=== PATIENT | male | born 1945 | race Caucasian/White ===

== ENCOUNTER 2017-11-05 00:05 | Inpatient (IN) | payer MEDICARE ==
[~2017-11-05] VITALS: Ht 167.6 cm; Wt 49.0 kg
[2017-11-05 00:32] LABS: BASOPHILS ABSOLUTE AUTO 0.02 K/mm3 (0.00-0.23); BASOPHILS PERCENT AUTO 0 % (0-2); EOSINOPHILS ABSOLUTE AUTO 0.01 K/mm3 (0.00-0.68); EOSINOPHILS PERCENT AUTO 0 % (0-6); Hematocrit 38.4 % (37.0-53.0); Hemoglobin 12.7 g/dL (13.5-17.5); IMMATURE GRAN ABSOLUTE AUTO 0.06 K/mm3 (0.00-0.10); IMMATURE GRAN PERCENT AUTO 1 % (0-1); LYMPHOCYTES PERCENT AUTO 9 % (21-46); MONOCYTES ABSOLUTE AUTO 2.36 K/mm3 (0.16-1.47); MONOCYTES PERCENT AUTO 26 % (4-13); Mean Corpuscular HGB Conc 33.1 g/dL (31.5-36.5); Mean Corpuscular Volume 94 fL (80-100); Mean Platelet Volume 10.5 fL (9.1-12.4); NEUTROPHILS ABSOLUTE AUTO 5.89 K/mm3 (1.96-9.15); NEUTROPHILS PERCENT AUTO 64 % (41-73); Platelet Count 298 K/mm3 (150-400); RDW Coefficient Variation 14.9 % (11.7-14.2); White Blood Cell Count 9.14 K/mm3 (4.00-11.30)
[2017-11-05 00:42] LABS: PCO2 Arterial 63.3 mmHg (35-45); PO2 Arterial 177 mmHg (80-100); pH Blood Arterial 7.27 (7.35-7.45)
[2017-11-05 00:45] LABS: Alanine Aminotransfer (ALT/SGP 15 U/L (12-78); Albumin, Blood 2.9 g/dL (3.4-5.0); Albumin/Globulin Ratio 0.6 (0.8-1.8); Alk Phos 91 U/L (50-136); Anion Gap 9 mmol/L (6-16); Aspartate Aminotrans (AST/SGOT 23 U/L (12-37); Bilirubin, Total 0.4 mg/dL (0.1-1.0); Blood Urea Nitrogen 22 mg/dL (8-24); CO2, Blood 28 mmol/L (21-32); Calcium, Blood 8.8 mg/dL (8.5-10.1); Chloride, Blood 106 mmol/L (98-108); Creatinine, Blood 1.16 mg/dL (0.60-1.20); Globulin, Blood 4.6 g/dL (2.2-4.0); Glomerular Filtration Rate >60 (60-); Glucose, Blood 105 mg/dL (70-99); Potassium, Blood 3.8 mmol/L (3.5-5.5); Sodium, Blood 143 mmol/L (136-145); Total Protein, Blood 7.5 g/dL (6.4-8.2); Troponin I <0.015 ng/mL (0.000-0.040)
[2017-11-05] MEDS ORDERED: LOSARTAN POTAS100 MG PO (00:49)
[2017-11-05] MEDS ORDERED: Omeprazole20 M1 (00:50)
[2017-11-05] MEDS ORDERED: PRED10 (00:50)
[2017-11-05] MEDS ORDERED: DOCU100 PO (00:50)
[2017-11-05] MEDS ORDERED: PIRO20 PO (00:51)
[2017-11-05] MEDS ORDERED: ESCI20 PO (00:51)
[2017-11-05] MEDS ORDERED: TRAZ50 PO ×2 (00:52)
[2017-11-05] MEDS ORDERED: TIOT18 INH (00:52)
[2017-11-05] MEDS ORDERED: ALPR1 PO (00:52)
[2017-11-05] MEDS ORDERED: BUDE6HFA INH (00:53)
[2017-11-05 04:21] LABS: Hematocrit 35.4 % (37.0-53.0); Hemoglobin 11.5 g/dL (13.5-17.5); Mean Corpuscular HGB 30.7 pg (26.0-34.0); Mean Corpuscular HGB Conc 32.5 g/dL (31.5-36.5); Mean Corpuscular Volume 95 fL (80-100); Mean Platelet Volume 10.8 fL (9.1-12.4); Platelet Count 274 K/mm3 (150-400); RDW Coefficient Variation 15.1 % (11.7-14.2); RDW Standard Deviation 51.8 fL (35.1-46.3); Red Blood Cell Count 3.74 M/mm3 (4.30-5.90); White Blood Cell Count 6.08 K/mm3 (4.00-11.30)
[2017-11-05 04:49] LABS: Albumin, Blood 2.7 g/dL (3.4-5.0); Anion Gap 8 mmol/L (6-16); Blood Urea Nitrogen 22 mg/dL (8-24); CO2, Blood 27 mmol/L (21-32); Chloride, Blood 109 mmol/L (98-108); Creatinine, Blood 1.05 mg/dL (0.60-1.20); Glomerular Filtration Rate >60 (60-); Glucose, Blood 162 mg/dL (70-99); Phosphorus, Blood 3.9 mg/dL (2.5-4.9); Potassium, Blood 3.7 mmol/L (3.5-5.5); Sodium, Blood 144 mmol/L (136-145)
[2017-11-05 04:56] LABS: BAND PERCENT MAN 20 % (0-8); BASOPHILS ABSOLUTE MAN 0.06 K/mm3 (0.00-0.23); BASOPHILS PERCENT MAN 1 % (0-2); EOSINOPHILS PERCENT MAN 0 % (0-6); LYMPHOCYTES PERCENT MAN 5 % (21-46); METAMYELOCYTE ABSOLUTE MAN 0.12 K/mm3 (0.00-0.00); METAMYELOCYTE PERCENT MAN 2 % (0-0); MONOCYTES ABSOLUTE MAN 0.54 K/mm3 (0.16-1.47); MONOCYTES PERCENT MAN 9 % (4-13); NEUTROPHILS ABSOLUTE MAN 5.04 K/mm3 (1.96-9.15); SEG NEUTROPHILS PERCENT MAN 63 % (41-73); TOTAL CELLS COUNTED 100
[2017-11-05 05:19] LABS: Influenza A Negative (NEGATIVE); Influenza B Negative (NEGATIVE)
[2017-11-05 07:46] LABS: PCO2 Arterial 57.3 mmHg (35-45); PO2 Arterial 63.4 mmHg (80-100); pH Blood Arterial 7.28 (7.35-7.45)
[2017-11-06 12:45] LABS: PCO2 Arterial 59.7 mmHg (35-45); PO2 Arterial 73.6 mmHg (80-100); pH Blood Arterial 7.31 (7.35-7.45)
[2017-11-06 13:48] LABS: Hematocrit 35.4 % (37.0-53.0); Hemoglobin 11.5 g/dL (13.5-17.5); Mean Corpuscular HGB 30.7 pg (26.0-34.0); Mean Corpuscular HGB Conc 32.5 g/dL (31.5-36.5); Mean Corpuscular Volume 95 fL (80-100); Mean Platelet Volume 11.1 fL (9.1-12.4); Platelet Count 339 K/mm3 (150-400); RDW Coefficient Variation 15.4 % (11.7-14.2); RDW Standard Deviation 53.5 fL (35.1-46.3); Red Blood Cell Count 3.74 M/mm3 (4.30-5.90); White Blood Cell Count 9.03 K/mm3 (4.00-11.30)
[2017-11-06 14:08] LABS: Anion Gap 6 mmol/L (6-16); Blood Urea Nitrogen 31 mg/dL (8-24); CO2, Blood 29 mmol/L (21-32); Calcium, Blood 8.8 mg/dL (8.5-10.1); Chloride, Blood 107 mmol/L (98-108); Creatinine, Blood 0.97 mg/dL (0.60-1.20); Glucose, Blood 170 mg/dL (70-99); Potassium, Blood 3.7 mmol/L (3.5-5.5); Sodium, Blood 142 mmol/L (136-145)
[2017-11-06 14:10] LABS: Glomerular Filtration Rate > 60 (60-)
[2017-11-07 04:37] LABS: Hematocrit 36.8 % (37.0-53.0); Hemoglobin 12.1 g/dL (13.5-17.5); Mean Corpuscular HGB 31.3 pg (26.0-34.0); Mean Corpuscular HGB Conc 32.9 g/dL (31.5-36.5); Mean Corpuscular Volume 95 fL (80-100); Mean Platelet Volume 10.6 fL (9.1-12.4); NRBC ABSOLUTE 0.03 K/mm3 (0.00-0.02); NRBC Auto 0.2 /100 WBC (0.0-0.2); Platelet Count 350 K/mm3 (150-400); RDW Coefficient Variation 15.8 % (11.7-14.2); RDW Standard Deviation 55.3 fL (35.1-46.3); Red Blood Cell Count 3.86 M/mm3 (4.30-5.90); White Blood Cell Count 13.31 K/mm3 (4.00-11.30)
[2017-11-07 05:06] LABS: Anion Gap 8 mmol/L (6-16); Blood Urea Nitrogen 34 mg/dL (8-24); Bun/Creatinine Ratio 31.8 (12.0-20.0); CO2, Blood 29 mmol/L (21-32); Calcium, Blood 9.2 mg/dL (8.5-10.1); Chloride, Blood 105 mmol/L (98-108); Creatinine, Blood 1.07 mg/dL (0.60-1.20); Glomerular Filtration Rate >60 (60-); Glucose, Blood 142 mg/dL (70-99); Sodium, Blood 142 mmol/L (136-145)
[2017-11-09 05:13] LABS: Hematocrit 35.5 % (37.0-53.0); Hemoglobin 11.5 g/dL (13.5-17.5); Mean Corpuscular HGB 30.9 pg (26.0-34.0); Mean Corpuscular HGB Conc 32.4 g/dL (31.5-36.5); Mean Corpuscular Volume 95 fL (80-100); Mean Platelet Volume 10.6 fL (9.1-12.4); Platelet Count 348 K/mm3 (150-400); RDW Coefficient Variation 15.5 % (11.7-14.2); RDW Standard Deviation 54.5 fL (35.1-46.3); Red Blood Cell Count 3.72 M/mm3 (4.30-5.90)
[2017-11-09 05:31] LABS: Anion Gap 3 mmol/L (6-16); Blood Urea Nitrogen 25 mg/dL (8-24); Bun/Creatinine Ratio 27.7 (12.0-20.0); CO2, Blood 38 mmol/L (21-32); Calcium, Blood 8.3 mg/dL (8.5-10.1); Chloride, Blood 100 mmol/L (98-108); Glomerular Filtration Rate >60 (60-); Glucose, Blood 139 mg/dL (70-99); Potassium, Blood 4.4 mmol/L (3.5-5.5); Sodium, Blood 141 mmol/L (136-145)
[2017-11-11] MEDS ORDERED: LOSA50 PO (10:23)
[2017-11-11] MEDS ORDERED: PRED20 PO (10:24)
== END 2017-11-11 15:17 | disposition home or self-care (01) | DRG 189 ==
LOC: ER 00:05 → PCU 01:26 → MEDS 11-07 22:36 → ENPENDDIS 11-11 09:33 → MEDS 11-11 15:17
PROVIDERS: Emergency Medicine; Family Medicine; Internal Medicine; Internal Medicine Pulmonary Disease
PROC: 5A09357 Assistance with Respiratory Ventilation, Less than 24 Consecutive Hours, Continuous Positive Airway Pressure (ICD-10-PCS; principal; 2017-11-04)
DX: J96.21 Acute and chronic respiratory failure with hypoxia (principal); E44.0 Moderate protein-calorie malnutrition; Z99.81 Dependence on supplemental oxygen; J44.1 Chronic obstructive pulmonary disease with (acute) exacerbation; Z68.1 Body mass index [BMI] 19.9 or less, adult; J96.22 Acute and chronic respiratory failure with hypercapnia; I10 Essential (primary) hypertension; F32.9 Major depressive disorder, single episode, unspecified; K21.9 Gastro-esophageal reflux disease without esophagitis; M19.90 Unspecified osteoarthritis, unspecified site; G47.9 Sleep disorder, unspecified; Z74.09 Other reduced mobility; F17.210 Nicotine dependence, cigarettes, uncomplicated; Z71.6 Tobacco abuse counseling; Z79.899 Other long term (current) drug therapy
CPT/HCPCS: 36415; 36600; 71010; 80048; 80053; 80069; 82803; 83605; 83690; 84484; 85025; 85027; 87040; 87070; 87205; 87804; 93005; 93010; 94640; 94644; 94660; 94760; 94762; 96360; 97110; 97161; 97166; 97530; 99285; G8978; G8979; G8987; G8988; G8989; J1650; J1956; J2920; J2930; J7030; Q2038

== ENCOUNTER 2021-05-10 15:09 | Inpatient (IN) | payer OTHER, MEDICARE ==
[~2021-05-10] VITALS: Ht 170.2 cm; Wt 72.3 kg
[~2021-05-10 15:09] MED LIST: ALPR1 PO; DOCU100 PO; ESCI20 PT; LOSA50 PT; LOSARTAN POTAS100 MG PO; Omeprazole20 M1; PIRO20 PO; PRED10; Prednisone10 MG PO; SYMBICORT 160-4.6 GM INH; TIOT18 INH; TRAZ50 PO
[2021-05-10 15:35] LABS: BASOPHILS ABSOLUTE AUTO 0.08 K/mm3 (0.00-0.23); BASOPHILS PERCENT AUTO 0 % (0-2); EOSINOPHILS ABSOLUTE AUTO 0.09 K/mm3 (0.00-0.68); EOSINOPHILS PERCENT AUTO 0 % (0-6); Hematocrit 37.6 % (37.0-53.0); Hemoglobin 11.7 g/dL (13.5-17.5); IMMATURE GRAN ABSOLUTE AUTO 0.12 K/mm3 (0.00-0.10); IMMATURE GRAN PERCENT AUTO 1 % (0-1); LYMPHOCYTES ABSOLUTE AUTO 0.91 K/mm3 (0.84-5.20); LYMPHOCYTES PERCENT AUTO 4 % (21-46); MONOCYTES ABSOLUTE AUTO 2.46 K/mm3 (0.16-1.47); MONOCYTES PERCENT AUTO 11 % (4-13); Mean Corpuscular HGB 31.1 pg (26.0-34.0); Mean Corpuscular HGB Conc 31.1 g/dL (31.5-36.5); Mean Corpuscular Volume 100 fL (80-100); Mean Platelet Volume 10.3 fL (9.1-12.4); NEUTROPHILS ABSOLUTE AUTO 18.64 K/mm3 (1.96-9.15); NEUTROPHILS PERCENT AUTO 84 % (41-73); Platelet Count 259 K/mm3 (150-400); RDW Coefficient Variation 15.2 % (11.7-14.2); RDW Standard Deviation 55.7 fL (35.1-46.3); Red Blood Cell Count 3.76 M/mm3 (4.30-5.90)
[2021-05-10] MEDS ORDERED: AMLO5 PT (15:50)
[2021-05-10] MEDS ORDERED: BUSP5 PT (15:51)
[2021-05-10] MEDS ORDERED: ALPR.25 PT (15:52)
[2021-05-10 15:56] LABS: PCO2 Arterial 57.3 mmHg (35-45); PO2 Arterial 195 mmHg (80-100); pH Blood Arterial 7.34 (7.35-7.45)
[2021-05-10 16:00] LABS: Alanine Aminotransfer (ALT/SGP 38 U/L (12-78); Albumin/Globulin Ratio 1.1 (0.8-1.8); Alk Phos 70 U/L (50-136); Anion Gap 3 mmol/L (6-16); Aspartate Aminotrans (AST/SGOT 31 U/L (12-37); Bilirubin, Total 0.3 mg/dL (0.1-1.0); Blood Urea Nitrogen 35 mg/dL (8-24); Bun/Creatinine Ratio 30.7 (12.0-20.0); CO2, Blood 34 mmol/L (21-32); Calcium, Blood 8.9 mg/dL (8.5-10.1); Chloride, Blood 103 mmol/L (98-108); Creatinine, Blood 1.14 mg/dL (0.60-1.20); Globulin, Blood 3.5 g/dL (2.2-4.0); Glomerular Filtration Rate >60 (60-); Glucose, Blood 120 mg/dL (70-99); Potassium, Blood 4.3 mmol/L (3.5-5.5); Sodium, Blood 140 mmol/L (136-145); Total Protein, Blood 7.5 g/dL (6.4-8.2)
[2021-05-10 16:05] LABS: Troponin I 0.055 ng/mL (0.000-0.040)
[2021-05-10 16:18] LABS: Creatine Kinase MB 10.3 ng/mL (0.0-3.6); Creatine Kinase MB Index 2.4 (0.0-4.0)
[2021-05-10] MEDS ORDERED: AZIT250 PO (16:58)
[2021-05-10] MEDS ORDERED: FERSU300 PT (16:59)
[2021-05-10] MEDS ORDERED: VITAMIN D31000 UNI1 PT (16:59)
[2021-05-10] MEDS ORDERED: ASCO500 PT (17:00)
[2021-05-10] MEDS ORDERED: DAILY-VITE1 EAC1 PT (17:00)
[2021-05-10 17:07] LABS: SARS-Cov-2 (COVID-19) PCR, MMC NEGATIVE (NEGATIVE)
[2021-05-10 17:50] LABS: Source, Urine Catheter
[2021-05-10 17:54] LABS: Bilirubin, Urine Neg (Neg); Blood, Urine 2+ (Neg); Color, Urine Yellow (P-Yellow); Glucose Qualitative, Urine Neg (Neg); Ketones, Urine 1+ (Neg); Leukocyte Esterase, Urine Neg (Neg); Nitrite, Urine Neg (Neg); Protein, Urine 2+ (Neg); Specific Gravity, Urine 1.025 (1.003-1.022); Urobilinogen, Urine NORM (Normal)
[2021-05-10 18:03] LABS: Appearance, Urine Hazy (Clear); White Blood Cells, Urine Rare /hpf (0-5)
[2021-05-10 18:04] LABS: Amorphous Light (0-Heavy); Bacteria Few /hpf; Squamous Epithelial Cells Not Seen /hpf (Few)
--- NOTE | 2021-05-10 20:30 | NUR ---
ADMIT RECEIVED FROM ER VIA GURNEY. PT IS INTUBATED- ETT 8.0, 26CM AT TEETH, AC 14, TV 400, PEEP 5, FIO2 35%. SEDATED WITH PROPOFOL AT 35MCG/KG/MIN. PT WITHDRAWS EXTREMITIES TO NOXIOUS STIMULI. NOT FOLLOWING COMMANDS. BILATERAL SOFT WRIST RETRAINTS IN PLACE TO PREVENT SELF-EXTUBATION. DR. LOERA AT BEDSIDE TO MAKE VENTILATOR CHANGES. MONITOR SHOWS SR WITH BBB, RATE 90s. OG CLAMPED. LANZA PATENT- DRAINING SMALL AMOUNTS OF YELLOW URINE. FACIAL LOVETT AND SWELLING NOTED. SEE ADMIT ASSESSMENT FOR FULL ASSESSMENT.
[2021-05-10 21:42] LABS: PCO2 Arterial 58.3 mmHg (35-45); PO2 Arterial 84.5 mmHg (80-100); pH Blood Arterial 7.29 (7.35-7.45)
--- NOTE | 2021-05-10 21:55 | NUR ---
CALL TO MD DR. LOERA NOTIFIED OF CRITICAL pH, DECREASED URINE OUTPUT, AND HYPOTENSION. NEW ORDERS RECEIVED FOR A 1L LR BOLUS NOW.
[2021-05-10 23:34] LABS: Troponin I 0.043 ng/mL (0.000-0.040)
[2021-05-10 23:48] LABS: Creatine Kinase MB 6.5 ng/mL (0.0-3.6); Creatine Kinase MB Index 1.4 (0.0-4.0)
--- NOTE | 2021-05-11 06:03 | NUR ---
SHIFT SUMMARY NO ACUTE CHANGES DURING SHIFT. REMAINS INTUBATED- AC/VC+ RATE 14, TV 400, PEEP 15, FIO2 NOW 30%. SEDATED WITH PROPOFOL AT 25MCG/KG/MIN AND VERSED GTT AT 3MG/HR. ALSO MEDICATED WITH ATIVAN 2MG IV X 2 DOSES FOR SEDATION ADJUNCT AND FENTANYL 50MCG IV X 2 DOSES FOR PAIN. NO NEURO CHANGES. NSR WITH BBB. HYPOTENSIVE AT TIMES, BUT MAP MOSTLY >65. TMAX 101.8F. OG TO LIS WITH SMALL AMOUNT BILE DRAINAGE. LANZA PATENT, DRAINING YELLOW URINE WITH SEDIMENT NOTED. NS INFUSING AT 75CC/HR PER ORDER. PICTURES TAKEN OF FACIAL LOVETT. WILL REPORT TO ONCOMING RN WHEN AVAILABLE.
[2021-05-11 07:20] LABS: Hematocrit 30.6 % (37.0-53.0); Hemoglobin 9.5 g/dL (13.5-17.5); Mean Corpuscular HGB 31.4 pg (26.0-34.0); Mean Corpuscular Volume 101 fL (80-100); Mean Platelet Volume 10.6 fL (9.1-12.4); Platelet Count 188 K/mm3 (150-400); RDW Coefficient Variation 15.3 % (11.7-14.2); Red Blood Cell Count 3.03 M/mm3 (4.30-5.90); White Blood Cell Count 19.01 K/mm3 (4.00-11.30)
[2021-05-11 07:52] LABS: Alanine Aminotransfer (ALT/SGP 31 U/L (12-78); Albumin, Blood 2.8 g/dL (3.4-5.0); Albumin/Globulin Ratio 0.8 (0.8-1.8); Alk Phos 50 U/L (50-136); Anion Gap 6 mmol/L (6-16); Aspartate Aminotrans (AST/SGOT 48 U/L (12-37); Bilirubin, Total 0.2 mg/dL (0.1-1.0); Blood Urea Nitrogen 34 mg/dL (8-24); Bun/Creatinine Ratio 27.6 (12.0-20.0); CO2, Blood 26 mmol/L (21-32); Calcium, Blood 7.5 mg/dL (8.5-10.1); Chloride, Blood 108 mmol/L (98-108); Creatinine, Blood 1.23 mg/dL (0.60-1.20); Globulin, Blood 3.3 g/dL (2.2-4.0); Glomerular Filtration Rate >60 (60-); Glucose, Blood 186 mg/dL (70-99); Potassium, Blood 4.3 mmol/L (3.5-5.5); Sodium, Blood 140 mmol/L (136-145); Total Protein, Blood 6.1 g/dL (6.4-8.2); Troponin I 0.037 ng/mL (0.000-0.040)
[2021-05-11 07:54] LABS: CPK Creatine Kinase 1410 U/L (39-308)
[2021-05-11 08:07] LABS: Creatine Kinase MB 11.8 ng/mL (0.0-3.6); Creatine Kinase MB Index 0.8 (0.0-4.0)
[2021-05-11 08:45] LABS: BAND PERCENT MAN 10 % (0-8); BASOPHILS PERCENT MAN 0 % (0-2); EOSINOPHILS PERCENT MAN 0 % (0-6); LYMPHOCYTES ABSOLUTE MAN 0.19 K/mm3 (0.84-5.20); LYMPHOCYTES PERCENT MAN 1 % (21-46); MONOCYTES ABSOLUTE MAN 0.38 K/mm3 (0.16-1.47); MONOCYTES PERCENT MAN 2 % (4-13); NEUTROPHILS ABSOLUTE MAN 18.43 K/mm3 (1.96-9.15); SEG NEUTROPHILS PERCENT MAN 87 % (41-73); TOTAL CELLS COUNTED 100
--- NOTE | 2021-05-11 09:46 | NUR ---
echocardiogram completed
--- NOTE | 2021-05-11 09:56 | NUR ---
PT INTUBATED AND SEDATED WITH PROPOFOL. VERSED WAS TURNED OFF PER DR. LOERA. PT HAS LOVETT TO CHEEKS AND NOSE. EYE'S ARE SWOLLEN SHUT AND LIPS ARE SWOLLEN. PT RESPONDS TO PAIN BY WITHDRAWING. UNABLE TO ASSESS PUPILS DUE TO EYE SWELLING. HYPOTENSIVE THIS AM THEREFORE HELD AM BP MEDS.
--- NOTE | 2021-05-11 15:53 | NUR ---
INITIAL PAL CARE VISIT - [place], Amy Kim is pt's MPOA [phone]. Pt lives with Amy, her and pt's granddaughter, Anahi. Anahi was at bedside and provided some information and hx and then I spoke with Amy at length by phone. Pt has good family support and help in the home with meals, medical care and personal needs. He is seen by [facility] home based Primary Care and Jami Benito is his PCP. Pt's home nurse is Perla. Ph # for that unit, per court is [phone]. [facility] is active in pt's care and recently helped him complete an updated Advanced Directive. I have faxed the [facility] Medical records dep to request copy of updated AD. We do not have an AD on file in EMR. Amy is pt's surrogate medical decision maker. Amy and Anahi tell me that pt had quit smoking around 2015 when his . The family went camping near the [facility] [employer] to visit their son and received a call from the pt a day AFTER the incident that resulted in thornton to face from smoking with his O2 on. He would not agree to go to the ER. Court called a nurse/friend, who evaluated and informed Amy that evaluation and tx absolutely necessary. Court called 911 from [place]. Pt is currently ventilated and sedated. He has underlying, O2 dependent COPD. I spoke to RN and reviewed EMR, update also obtained from IDT meeting this am. All updates provided to court, who was very appreciative of the call. She states Anahi is his "best kevin" in the home and Anahi made clear that she wanted to be at her granddad's side when possible. Amy will be back home tomorrow. We discussed advanced care planning and pt's wishes. He has indicated he is ok with CPR and intubation at this time but would not want [facility] life support if improvement and return to PLOF not possible. Court understands that pt is being tx for his COPD exacerbation and airway inflammation/swelling and facial wounds. I informed that more would be known about his condition and ongoing plan of care in next 1-2. Pal Care to remain available. in next 24-48 hours.
--- NOTE | 2021-05-11 18:39 | NUR ---
SUMMARY PT INTUBATED AND SEDATED WITH PROPOFOL. PT HAS BEEN SEDATED WELL WITH PROPOFOL AND FENTANYL. THIS EVENING PT GOT VERY ANXIOUS AND MOVING ALL OVER BED. GAVE A DOSE OF ATIVAN AND PT SETTLED BACK DOWN. FACIAL LOVETT MOIST. PT IS HAVING MOD AMT OF THICK DRAINAGE FROM NOSE. STARTED ON TUBE FEED TODAY AND TOLERATING WELL. NO OTHER CHANGES.
--- NOTE | 2021-05-11 19:00 | NUR ---
ASSUMED CARE ASSUMED CARE OF PATIENT. REMAINS INTUBATED- AC/VC+ RATE 14, TV 450, PEEP 5, FIO2 30%. ETT 8.0, 26CM AT LOWER LIP. TUBE IS SUPPOSED TO BE 26CM AT GUM- RT IS AWARE AND IS PLANNING ON RETAPING THE TUBE. SEDATED WITH PROPOFOL AT 25MCG/KG/MIN. PT WITHDRAWS FROM NOXIOUS STIMULI. NOT FOLLOWING ANY COMMANDS. OCCASIONALLY KICKS/SHAKES LEGS. BILATERAL SOFT WRIST RESTRAINTS IN PLACE TO PREVENT SELF-EXTUBATION. MONITOR SHOWS NSR WITH BBB, RATE 90s. BP STABLE. OG WITH PIVOT 1.5 AT 20CC/HR (GOAL IS 35CC/HR). LANZA PATENT AND DRAINING SMALL AMOUNT OF HAZY YELLOW URINE. FACIAL LOVETT NOTED. SEE SHIFT ASSESSMENT FOR FULL ASSESSMENT.
--- NOTE | 2021-05-11 20:40 | NUR ---
CALL TO MD DR. LOERA NOTIFIED OF DECREASED URINE OUTPUT- NEW ORDER RECEIVED TO START LR AT 75CC/HR.
[2021-05-12 03:43] LABS: BASOPHILS ABSOLUTE AUTO 0.01 K/mm3 (0.00-0.23); BASOPHILS PERCENT AUTO 0 % (0-2); EOSINOPHILS PERCENT AUTO 0 % (0-6); Hematocrit 28.5 % (37.0-53.0); Hemoglobin 9.2 g/dL (13.5-17.5); IMMATURE GRAN ABSOLUTE AUTO 0.09 K/mm3 (0.00-0.10); IMMATURE GRAN PERCENT AUTO 1 % (0-1); LYMPHOCYTES ABSOLUTE AUTO 0.28 K/mm3 (0.84-5.20); LYMPHOCYTES PERCENT AUTO 2 % (21-46); MONOCYTES ABSOLUTE AUTO 0.69 K/mm3 (0.16-1.47); MONOCYTES PERCENT AUTO 4 % (4-13); Mean Corpuscular HGB 31.4 pg (26.0-34.0); Mean Corpuscular HGB Conc 32.3 g/dL (31.5-36.5); Mean Corpuscular Volume 97 fL (80-100); Mean Platelet Volume 10.6 fL (9.1-12.4); NEUTROPHILS ABSOLUTE AUTO 15.23 K/mm3 (1.96-9.15); NEUTROPHILS PERCENT AUTO 93 % (41-73); Platelet Count 177 K/mm3 (150-400); RDW Coefficient Variation 15.5 % (11.7-14.2); RDW Standard Deviation 55.7 fL (35.1-46.3); Red Blood Cell Count 2.93 M/mm3 (4.30-5.90)
[2021-05-12 04:05] LABS: Alanine Aminotransfer (ALT/SGP 36 U/L (12-78); Albumin, Blood 2.7 g/dL (3.4-5.0); Albumin/Globulin Ratio 0.8 (0.8-1.8); Alk Phos 48 U/L (50-136); Anion Gap 4 mmol/L (6-16); Aspartate Aminotrans (AST/SGOT 84 U/L (12-37); Bilirubin, Total 0.1 mg/dL (0.1-1.0); Blood Urea Nitrogen 42 mg/dL (8-24); Bun/Creatinine Ratio 40.4 (12.0-20.0); CO2, Blood 27 mmol/L (21-32); Calcium, Blood 7.4 mg/dL (8.5-10.1); Chloride, Blood 107 mmol/L (98-108); Creatinine, Blood 1.04 mg/dL (0.60-1.20); Globulin, Blood 3.4 g/dL (2.2-4.0); Glomerular Filtration Rate >60 (60-); Glucose, Blood 197 mg/dL (70-99); Magnesium, Blood 2.5 mg/dL (1.6-2.4); Phosphorus, Blood 2.7 mg/dL (2.5-4.9); Potassium, Blood 4.3 mmol/L (3.5-5.5); Sodium, Blood 138 mmol/L (136-145); Total Protein, Blood 6.1 g/dL (6.4-8.2)
[2021-05-12 05:07] LABS: PCO2 Arterial 48.8 mmHg (35-45); PO2 Arterial 88.3 mmHg (80-100); pH Blood Arterial 7.36 (7.35-7.45)
--- NOTE | 2021-05-12 06:13 | NUR ---
SHIFT SUMMARY NO ACUTE CHANGES. REMAINS INTUBATED- VENT SETTINGS UNCHANGED. SEDATED WITH PROPOFOL BETWEEN 25-35MCG/KG/MIN- NOW AT 35MCG/KG/MIN. MEDICATED WITH ATIVAN 2MG IV X 3 DOSES SEDATION ADJUNCT AND FENTANYL 50MCG X 3 DOSES FOR COMFORT. OPENED EYES AND SQUEEZED HANDS TO COMMAND WHEN SEDATION DECREASED. SBT DONE- SEE RT DOCUMENTATION. VSS T/O NOC. OG WITH PIVOT 1.5 AT GOAL RATE OF 35CC/HR. RESIDUALS <10CC. LANZA PATENT AND DRAINING TO GRAVITY. LR INFUSING AT 75CC/HR PER ORDER. WILL REPORT TO ONCOMING RN WHEN AVAILABLE.
--- NOTE | 2021-05-12 18:31 | NUR ---
SUMMARY PT INTUBATED AND SEDATED. PT WILL TRY TO LIFT EYELIDS BUT UNABLE TO. GETS AGITATED WITH CARE AND STARTS SHAKING ARMS AND LEGS. RESOLVES WITH FENTANYL. FACIAL LOVETT WITH SWELLING AROUND LIPS, NOSE, AND EYE'S. HAVING THICK CORRIGAN DRAINAGE FROM NOSE FREQUENTLY. CORRIGAN SPUTUM FROM ETT WELL. NO OTHER CHANGES TODAY.
--- NOTE | 2021-05-12 19:00 | NUR ---
ASSUMED CARE ASSUMED CARE OF PATIENT. REMAINS INTUBATED- AC/VC+ RATE 14, TV 450, PEEP 10, FIO2 30%. ETT 8.0, 26CM AT GUMS. SEDATED WITH PROPOFOL AT 25MCG/KG/MIN. PT WITHDRAWS FROM NOXIOUS STIMULI. NOT FOLLOWING ANY COMMANDS. OCCASIONALLY KICKS/SHAKES LEGS. BILATERAL SOFT WRIST RESTRAINTS IN PLACE TO PREVENT SELF-EXTUBATION. MONITOR SHOWS NSR WITH BBB, RATE 90s. BP STABLE. OG WITH PIVOT 1.5 AT GOAL RATE OF 35CC/HR. LANZA PATENT AND DRAINING HAZY YELLOW URINE. FACIAL LOVETT NOTED. LR INFUSING AT 75CC/HR PER ORDER. SEE SHIFT ASSESSMENT FOR FULL ASSESSMENT.
[2021-05-13 04:24] LABS: BASOPHILS ABSOLUTE AUTO 0.01 K/mm3 (0.00-0.23); BASOPHILS PERCENT AUTO 0 % (0-2); EOSINOPHILS PERCENT AUTO 0 % (0-6); Hemoglobin 8.9 g/dL (13.5-17.5); IMMATURE GRAN ABSOLUTE AUTO 0.06 K/mm3 (0.00-0.10); IMMATURE GRAN PERCENT AUTO 1 % (0-1); LYMPHOCYTES ABSOLUTE AUTO 0.23 K/mm3 (0.84-5.20); LYMPHOCYTES PERCENT AUTO 2 % (21-46); MONOCYTES ABSOLUTE AUTO 0.53 K/mm3 (0.16-1.47); MONOCYTES PERCENT AUTO 5 % (4-13); Mean Corpuscular HGB 31.6 pg (26.0-34.0); Mean Corpuscular HGB Conc 31.8 g/dL (31.5-36.5); Mean Corpuscular Volume 99 fL (80-100); Mean Platelet Volume 11.1 fL (9.1-12.4); NEUTROPHILS ABSOLUTE AUTO 10.37 K/mm3 (1.96-9.15); NEUTROPHILS PERCENT AUTO 93 % (41-73); Platelet Count 176 K/mm3 (150-400); RDW Coefficient Variation 15.9 % (11.7-14.2); RDW Standard Deviation 58.2 fL (35.1-46.3); Red Blood Cell Count 2.82 M/mm3 (4.30-5.90)
[2021-05-13 05:04] LABS: Alanine Aminotransfer (ALT/SGP 44 U/L (12-78); Albumin, Blood 2.5 g/dL (3.4-5.0); Albumin/Globulin Ratio 0.7 (0.8-1.8); Alk Phos 53 U/L (50-136); Anion Gap 6 mmol/L (6-16); Aspartate Aminotrans (AST/SGOT 62 U/L (12-37); Bilirubin, Total 0.1 mg/dL (0.1-1.0); Blood Urea Nitrogen 43 mg/dL (8-24); Bun/Creatinine Ratio 49.4 (12.0-20.0); CO2, Blood 28 mmol/L (21-32); Calcium, Blood 7.7 mg/dL (8.5-10.1); Chloride, Blood 107 mmol/L (98-108); Creatinine, Blood 0.87 mg/dL (0.60-1.20); Globulin, Blood 3.5 g/dL (2.2-4.0); Glomerular Filtration Rate >60 (60-); Glucose, Blood 234 mg/dL (70-99); Magnesium, Blood 2.8 mg/dL (1.6-2.4); Phosphorus, Blood 2.4 mg/dL (2.5-4.9); Potassium, Blood 4.3 mmol/L (3.5-5.5); Sodium, Blood 141 mmol/L (136-145)
--- NOTE | 2021-05-13 06:25 | NUR ---
SHIFT SUMMARY NO ACUTE CHANGES. SBT DONE THIS AM ON LOW DOSE PROPOFOL TO HELP WITH AGITATION. PT CONTINUES WITH PERIODS OF INCREASED AGITATION. MEDICATED WITH ATIVAN 2MG IV X 2 DOSES SEDATION ADJUNCT. ALSO MEDICATED WITH FENTANYL 50MCG IV X 2 DOSES FOR COMFORT. PROPOFOL BETWEEN 35-45MCG/KG/MIN DURING NOC- NOW INFUSING AT 45MCG/KG/MIN. VSS, EXCEPT SOME HYPERTENSION DURING SBT. OG WITH PIVOT 1.5 AT GOAL RATE OF 35CC/HR. RESISUALS <10CC. LANZA PATENT AND DRAINING. LR INFUSING AT 75CC/HR. WILL REPORT TO ONCOMING SHIFT WHEN AVAILABLE.
--- NOTE | 2021-05-13 08:15 | NUR ---
AM NOTE.... ASSUMED CARE OF PT AT 0700. PT IS INTUBATED AND SEDATED ON 55MCG OF PROPOFOL, THIS WAS INCREASED FROM 45MCG D/T INCREASED AGITATION. PT IS ON THE VENT AT AC: 14/450/10/30% WITH O2 SATS >95%. L/S COARSE, TIGHT WITH WHEEZES HEARD T/O DIM IN THE BASES. PT IS IN SR W/BBB IN THE 70'S, PT HAS FACIAL EDEMA D/T THE LOVETT ON HIS FACE WELL BILATERAL EDEMA IN HIS HANDS. PT'S BP STABLE AT THIS TIME SLIGHTLY ON THE HYPERTENSIVE SIDE. BT PRESENT AND HYPOACTIVE,ABD HAS MODERATE DISTENTION AND IS FIRM TO PALP, PT HAS NOT HAD A BM SINCE ADMIT, UNKNOWN WHEN HIS LAST ONE WAS. OG TUBE IS RUNNING TUBE FEED AT GOAL OF 35MLS/HR WITH 30 H2O FLUSHES Q4HRS. 10MLS OF RESIDUAL WAS REINSTILLED. LANZA IS PATENT AND DRAINING CLEAR YELLOW URINE TO GRAVITY. WILL CONTINUE TO MONITOR.
--- NOTE | 2021-05-13 19:28 | NUR ---
SHIFT SUMMARY... PT'S VS HAVE BEEN STABLE T/O SHIFT, PT HAS TOLERATED ORAL AND WOUND CARE T/O SHIFT. AT APROX 1850 IT WAS NOTED BY THIS RN INCREASED SWELLING TO THE PT'S LIPS, TONGUE AND FACE WELL INCREASED BREATH STACKING ON THE VENT. NO INCREASED WHEEZES NOTED UPON ASUCULTATION OF THE PT DURING THIS TIME. PROPOFOL TITRATED UP FROM 35MCG TO 55MCG AND PRECEDEX TITRATED UP FROM 0.6MCG TO 0.7MCG. PT WAS ALSO GIVEN 50MCG OF IV FENTANYL. RT WAS CALLED ALONG WITH DR. RIVERO. NEW ORDERS OBTAINED FROM TO GIVE 4-6 MG IV VERSED Q1HRS AND TO TITRATE THE PRECEDEX UP TO 1.4MCG IF NEEDED. REPORT WAS GIVEN TO KAT WICK WHO WAS UPDATED ON THE NEW ORDERS.
--- NOTE | 2021-05-13 20:00 | NUR ---
ASSUMED CARE OF PT AT 191. REPORT RECEIVED AT BEDSIDE. PT INTUBATED WITH AC/VC 14, 450, FIO2 30%, PEEP 10. PT TOLERATING THIS WELL AT THIS TIME. PROPOFOL INFUSING AT 55MCG'S/KG/MIN. PRECEDEX AT 0.7 MCG'S. TUBE FEEDING AT GOAL. WILL REVIEW CHART AND PLAN OF CARE FOR THIS PT.
[2021-05-14 05:51] LABS: Albumin, Blood 2.6 g/dL (3.4-5.0); Anion Gap 3 mmol/L (6-16); Blood Urea Nitrogen 43 mg/dL (8-24); Bun/Creatinine Ratio 50.4 (12.0-20.0); CO2, Blood 29 mmol/L (21-32); Calcium, Blood 7.6 mg/dL (8.5-10.1); Chloride, Blood 107 mmol/L (98-108); Creatinine, Blood 0.85 mg/dL (0.60-1.20); Glomerular Filtration Rate >60 (60-); Glucose, Blood 235 mg/dL (70-99); Magnesium, Blood 3.1 mg/dL (1.6-2.4); Phosphorus, Blood 2.6 mg/dL (2.5-4.9); Potassium, Blood 4.8 mmol/L (3.5-5.5); Sodium, Blood 139 mmol/L (136-145)
[2021-05-14 06:10] LABS: Hematocrit 31.4 % (37.0-53.0); Hemoglobin 9.9 g/dL (13.5-17.5); Mean Corpuscular HGB Conc 31.5 g/dL (31.5-36.5); Mean Corpuscular Volume 98 fL (80-100); Mean Platelet Volume 11.4 fL (9.1-12.4); NRBC ABSOLUTE 0.02 K/mm3 (0.00-0.02); NRBC Auto 0.2 /100 WBC (0.0-0.2); Platelet Count 212 K/mm3 (150-400); RDW Coefficient Variation 15.8 % (11.7-14.2); RDW Standard Deviation 57.2 fL (35.1-46.3); Red Blood Cell Count 3.19 M/mm3 (4.30-5.90); White Blood Cell Count 10.15 K/mm3 (4.00-11.30)
--- NOTE | 2021-05-14 06:44 | NUR ---
PT HAS CONTINUED WITH PRECEDEX AT 0.7 MCG'S, PROPOFOL AT 50 MCG'S. PT HAS BEEN MEDICATED WITH 50 MCG FENTANYL TIMES ONE FOR VENT TOLERANCE. HAVE NOTED PT HAS HAD INCREASE IN FACIAL SWELLING SINCE THE BEGINNING OF SHIFT. DID DO WOUND CARE THIS MORNING. USE OF WOUND DRAMATIC AGENT SPRAY, AND GAUZE FOR GENTLE CLEANING. ANTIBIOTIC OINTMENT APPLIED. DID LIGHTLY PLACE ALGINATE DRESSING PLACED TO LOVETT. HAVE SUCTIONED PT WITH RETURN OF CORRIGAN COLORED SECRETIONS. BLOOD PRESSURES HAVE BEEN SOMEWHAT ELEVATED THIS PROFESSOR OF GENETICS. WILL CONTINUE TO MONITOR PT, AND WILL REPORT OFF TO ONCOMING RN.
--- NOTE | 2021-05-14 07:26 | NUR ---
ASSUMED CARE: PT RESTING IN BED, INTUBATED WITH SETTINGS AC 14/450/10/30%. FACIAL SWELLING AROUND EYES, NOSE AND MOUTH. LIPS AND TONGUE SWOLLEN. NIGHT RN STATES SWELLING IS WORSE THIS AM. RT AT BEDSIDE GIVING BREATHING TX. FEEDING TUBE AND LANZA CATH IN PLACE. PROPOFOL GTT AT 50 MCG/KG AND PRECEDEX AT 0.7 MCG. NO FURTHER NEEDS AT THIS TIME.
--- NOTE | 2021-05-14 12:14 | NUR ---
WOUND CARE COMPLETED TO FACE AND NOSE. 2MG DILAUDID GIVEN FOR PAIN. PT BEGAN STACKING BREATHS. RT AT BEDSIDE AND SWITCHED PT TO PRESSURE SUPPORT. PROPOFOL INCREASED TO 60MCG/KG AND PRECEDEX INCREASED TO 1.4MCG. RT SPOKE WITH DR RIVERO WHO INSTRUCTED TO SWITCH PT BACK TO AC. PT SWITCHED TO AC AND STACKING BECAME WORSE. SPOKE WITH DR RIVERO AGAIN WHO INSTRUCTED TO ADD VERSED TO PT'S REGIMEN. VERSED GTT STARTED AT 1MG/HR AT THIS TIME
--- NOTE | 2021-05-14 15:39 | NUR ---
CALL TO DR RIVERO TO UPDATE HIM THAT PT APPEARS TO HAVE WORSENING FACIAL SWELLING AND THAT IN ORDER TO GET PT'S BREATHING MORE RELAXED, HE IS ON 60MCG/HR OF PROPOFOL, 1.4 MCG OF PRECEDEX, AND 7 MG/HR OF VERSED. ASKED FOR SURGICAL CONSULT. CONSULT CALLED INTO A.S. EXPLOSIVES WORKER AT BEDSIDE PERFORMING PICC LINE AT THIS TIME.
--- NOTE | 2021-05-14 16:19 | NUR ---
DR LOPEZ CAME TO SEE PT AND STATES THE BACTROBAN SHOULD BE USED INSTEAD OF SILVADENE. ALSO MADE RECOMMENDATIONS TO DR RIVERO AND DR RIVERO IS CALLING [facility] AT [facility] TO SEE IF PT NEEDS TO BE TRANSFERRED. FORMING PRESS OPERATOR REMAINS AT BEDSIDE PERFORMING PICC AT THIS TIME.
--- NOTE | 2021-05-14 17:33 | NUR ---
DR RIVERO CALLED THIS RN AFTER SPEAKING WITH [facility] AT [facility]. THEY INSTRUCTED FOR WOUND CARE TO BE A DAILY GENTLE DEBRIDEMENT WITH BABY SOAP AND WATER AND TO ONLY APPLY OINTMENT (BACTROBAN) IF WOUND BED BECOMES DRY AND CRUSTED. WOUND CENTER STATES NO FURTHER RECOMMENDATIONS BEYOND CURRENT CARE. PT'S DAUGHTER WAS CALLED AND GIVEN AN UPDATE AND WAS ALSO INFORMED OF PICC LINE PLACEMENT. DENIES FURTHER CONCERNS OR NEEDS AT THIS TIME.
--- NOTE | 2021-05-14 18:27 | NUR ---
SHIFT SUMMARY: DR RIVERO CAME IN TO CHECK ON PT AGAIN THIS PM. PT REMAINS INTUBATED WITH AC 14/450/10/30%. PROPOFOL AT 60MCG/KG. PRECEDEX AT 1.4MCG/KG. VERSED GTT AT 7MG/HR. PT RECIEVING PRN DILAUDID WELL. WOUND CARE COMPLETED THIS SHIFT. PT'S DAUGHTER HAS BEEN CALLED AND UPDATED. NO FURTHER NEEDS AT THIS TIME.
--- NOTE | 2021-05-14 20:00 | NUR ---
ASSUMED CARE OF PT AT 1915. REPORT RECEIVED AT BEDSIDE. PT PRESENTS IN BED. INTUBATED. AC/VC 14, 450, FIO2 30, PEEP 10. PT MAINTAINS > 90 PERCENT SATURATION WITH THIS. PROPOFOL AT 60 MCG'S, PRECEDEX AT 1.4 MCG'S, AND VERSED DRIP AT 7MG/HOUR. PT MAINTAINS SAS 3. FACIAL LOVETT LOOK SOMEWHAT BETTER. FACIAL EDEMA IMPROVING. WILL REVIEW CHART AND PLAN OF CARE FOR THIS PT.
--- NOTE | 2021-05-15 01:00 | NUR ---
HAVE MEDICATED PT ONCE WITH 1 MG DILAUDID FOR VENT TOLERANCE. PT WAS STACKING RESPIRATIONS. THIS PROVES AFFECTIVE. HAVE SUCTIONED PT PER ETT WITH RETURN OF SMALL AMOUNT OF CORRIGAN COLORED SECRETIONS.
[2021-05-15 04:23] LABS: BASOPHILS ABSOLUTE AUTO 0.02 K/mm3 (0.00-0.23); BASOPHILS PERCENT AUTO 0 % (0-2); EOSINOPHILS PERCENT AUTO 0 % (0-6); IMMATURE GRAN ABSOLUTE AUTO 0.21 K/mm3 (0.00-0.10); IMMATURE GRAN PERCENT AUTO 2 % (0-1); LYMPHOCYTES ABSOLUTE AUTO 0.19 K/mm3 (0.84-5.20); LYMPHOCYTES PERCENT AUTO 2 % (21-46); MONOCYTES ABSOLUTE AUTO 0.55 K/mm3 (0.16-1.47); MONOCYTES PERCENT AUTO 5 % (4-13); Mean Corpuscular HGB 30.8 pg (26.0-34.0); Mean Corpuscular HGB Conc 31.3 g/dL (31.5-36.5); Mean Corpuscular Volume 99 fL (80-100); Mean Platelet Volume 11.1 fL (9.1-12.4); NEUTROPHILS PERCENT AUTO 90 % (41-73); Platelet Count 204 K/mm3 (150-400); RDW Coefficient Variation 15.6 % (11.7-14.2); RDW Standard Deviation 57.1 fL (35.1-46.3); Red Blood Cell Count 3.25 M/mm3 (4.30-5.90); White Blood Cell Count 10.17 K/mm3 (4.00-11.30)
[2021-05-15 04:49] LABS: Albumin, Blood 2.5 g/dL (3.4-5.0); Anion Gap 3 mmol/L (6-16); Blood Urea Nitrogen 49 mg/dL (8-24); Bun/Creatinine Ratio 50.8 (12.0-20.0); CO2, Blood 31 mmol/L (21-32); Calcium, Blood 7.5 mg/dL (8.5-10.1); Chloride, Blood 106 mmol/L (98-108); Creatinine, Blood 0.97 mg/dL (0.60-1.20); Glomerular Filtration Rate >60 (60-); Glucose, Blood 253 mg/dL (70-99); Phosphorus, Blood 3.2 mg/dL (2.5-4.9); Potassium, Blood 5.4 mmol/L (3.5-5.5); Sodium, Blood 140 mmol/L (136-145)
--- NOTE | 2021-05-15 06:30 | NUR ---
PT CONTINUES WITH VENT UNCHANGED IN SETTINGS. MAINTAINS > 90 PERCENT SATURATIONS. HAS NOT HAD MUCH SECRETIONS FROM ETT. HAS CONTINUED ON PROPOFOL, VERSED, AND PRECEDEX FOR SEDATION. WILL CONTINUE TO MONITOR PT AND WILL REPORT OFF TO ONCOMING RN.
--- NOTE | 2021-05-15 10:42 | NUR ---
AM NOTE... ASSUMED CARE OF PT AT 0700. PT IS INTUABTED AND SEDATED ON AC/VC+ AT 14/450/10/30% WITH O2 SATS >90%. ET TUBE IS 26 TO THE GUMS. PT HAS A SMALL AMOUNT OF WHITE/CLEAR THICK SECRETIONS WHEN SUCTIONING THE ET TUBE. L/S CLEAR T/O DIM IN THE BASES, RR EVEN UNLABORED AT 14-18. BT PRESENT AND HYPOACTIVE, ABD HAS MODERATE DISTENTION AND IS FIRM TO PALP. PT HAS NOT HAD A BM SINCE ADMIT ON THE . PT'S FACIAL SWELLING HAS IMPROVED, PT HAS DEPENDENT EDEMA NOTED TO HIS HANDS, PT HAS 2+ TO HIS BLE AND FEET. LANZA IS PATENT AND DRAINING CLEAR YELLOW URINE TO GRAVITY. PT IS ON 60MCG OF PROPOFOL, 1.2MCG OF PRECEDEX AND 6MG OF VERSED GTT RUNNING PER ORDERS. PT RESPONDS TO PAINFUL STIMULI. WILL CONTINUE TO MONITOR.
--- NOTE | 2021-05-15 18:49 | NUR ---
SHIFT SUMMARY... NO ACUTE NEGATIVE CHANGES NOTED THIS SHIFT. PT'S VS HAVE BEEN STABLE. PT'S WOUND CARE DONE PER RECCOMENDATIONS. NO CHANGE TO VENT SETTINGS. PT'S LANZA IS PATENT AND DRAINING YELLOW URINE TO GRAVITY. PT'S SEDATION IS PROPOFOL AT 30MCG, PRECEDEX AT 0.8 AND VERSED GTT RUNNING AT 8MG/HR. WILL CONTINUE TO MONITOR UNTIL REPORT IS GIVEN TO ONCOMING RN.
--- NOTE | 2021-05-15 22:48 | NUR ---
ASSUMED CARE AT 1900 PT LAYING IN BED INTUBATED WITH VENT SETTINGS AC/VC+ 14, TV 450, PEEP 10, FIO2 30%; SCANT AMOUNT OF SECREATIONS. PT REACTIVE TO PAINFUL STIMULI INCLUDING REPOSITIONING AND ORAL CARE; PLANTAR REFLEX PRESENT; GAG AND COUGH PRESENT; VERSED INFUSING AT 9MG/HR; PROPOFOL INFUSING AT 30MCG/KG/MIN; PRECEDEX INFUSING AT 0.8MCG/KG/HR. PRN DILAUDID GIVEN FOR CPOT 3; FACIAL EXPRESSION TENSE; OCCATIONAL COUGHING AND MUSCLES RIGID; PRN HELPFUL. HR 70-80'S. SBP 120-130'S. AFEBRILE. PIVOT INFUSING VIA OG AT 30ML/HR (GOAL) WITH 30ML WATER FLUSHES Q4HR; 20ML RESIDUALS. LANZA PATENT AND DRAINING TO GRAVITY. FACIAL LOVETT COVERED WITH OINTMENT AND MOIST. PICC TO LEIGH ANN AND POWERGLIDE TO MCKENNA PATENT. SEE SHIFT ASSESSMENT FOR FULL ASSESSMENT.
--- NOTE | 2021-05-16 00:04 | NUR ---
UPDATE PT HAVING ISSUES WITH VENT COMPLIENCE, RT CALLED TO ADJUST SETTINGS, NEW SETTINGS AC/PC 14, PEEP 10, FIO2 30%, TV 350-550. DR RIVERO NOTIFIED OF CHANGE AND GAVE ORDERS TO CONT TO TITRATE VERSED UP IF NEEDED FOR COMPLIENCE AND TO START FOLIC ACID AND THIAMINE.
[2021-05-16 04:34] LABS: Albumin, Blood 2.4 g/dL (3.4-5.0); Anion Gap 1 mmol/L (6-16); Blood Urea Nitrogen 55 mg/dL (8-24); Bun/Creatinine Ratio 60.5 (12.0-20.0); CO2, Blood 33 mmol/L (21-32); Calcium, Blood 7.6 mg/dL (8.5-10.1); Chloride, Blood 105 mmol/L (98-108); Creatinine, Blood 0.91 mg/dL (0.60-1.20); Glomerular Filtration Rate >60 (60-); Glucose, Blood 224 mg/dL (70-99); Phosphorus, Blood 3.4 mg/dL (2.5-4.9); Potassium, Blood 5.7 mmol/L (3.5-5.5); Sodium, Blood 139 mmol/L (136-145)
--- NOTE | 2021-05-16 06:28 | NUR ---
END OF SHIFT SUMMARY PT CONT TO BE INTUBATED WITH VENT SETTINGS AC/PC 14, PEEP 10, FIO2 30%, TV 500-600; SCANT AMOUNT OF SECREATIONS. PT REACITVE TO PAINFUL STIMULI LIKE REPOSITIONING AND ORAL CARE; PROPOFOL INFUSING AT 30MCG/KG/MIN; PRECEDEX INFUSING AT 0.8MCG/KG/HR; VERSED INFUSING AT 11MG/HR; PRN DILAUDID GIVEN X2 AND HELPFUL. AFEBRILE. HR 70'S. SBP 100-130'S. PIVOT INFUSING AT 30ML/HR (GOAL) WITH 30ML WATER FLUSHES Q4HR; ABOUT 20ML RESIDUALS. LANZA PATENT AND DRAINING TO GRAVITY. FACIAL LOVETT COVERED WITH OINTMENT. WILL REPORT TO AM RN WHEN AVAILABLE.
--- NOTE | 2021-05-16 07:57 | NUR ---
ASSUMED CARE: REPORT RECEIVED FROM EMIL Robertson RN. ASSUMED CARE OF THIS PT AT APPROX 0700. ON ASSESSMENT, THE PT IS INTUBATED & SEDATED W/ PROPOFOL, PRECEDEX & VERSED. HE IS RESTING QUIETLY, WITHDRAWS EXTREMITIES FROM PAINFUL STIMULUS. LS DIM T/O, PT ON VENT W/ SETTINGS: AC/PC 14/15/10/30%. O2 SATS > 92%. MONITOR SHOWS SR W/ HR 70s, BP STABLE. OGT IN PLACE W/ PIVOT TF INFUSING AT GOAL RATE OF 30 ML/HR. PT's ABD IS MODERATELY DISTENDED & FIRM, BT x4. LANZA PATENT/ DRAINING YELLOW URINE. SKIN ON PT's FACE IS SUBSTANTIALLY BURNED FROM CHEEKBONES DOWN TO CHIN, THE AREA IS CURRENTLY MOIST. WILL CLEANSE THIS SHIFT PER [facility] RECOMMENDATIONS. WILL CONTINUE TO MONITOR & UPDATE NEEDED.
--- NOTE | 2021-05-16 10:54 | NUR ---
DR TITUS / UPDATE: PROVIDER AT BEDSIDE THIS AM TO EVAL PT. AT APPROX 0920 HE HAS DECREASED PT's PEEP FROM 10 TO 5 & PLACED THE VENT ON SPONTANEOUS MODE W/ PS 5. HE WOULD LIKE THIS RN TO TITRATE VERSED DRIP DOWN TOLERATED & STS OKAY TO INCREASE PRECEDEX TO 1.4 MCG/KG/HR IF NEEDED. THE PT HAS TOLERATED THIS WELL W/ ADEQUATE RR & TVs. HE IS CONSIDERING EXTUBATION TOMORROW AT THE EARLIEST R/T CONTINUED SWELLING OF PT's TONGUE/ MOUTH. PROVIDER CALLED BACK TO BEDSIDE AT APPROX 1050 BY RT ADAMA, FOR NOTED EXPIRATORY WHEEZING & LOW TVs < 250. THE PT APPEARS RESTLESS & THIS RN HAS TITRATED PRECEDEX UP TO 1.2 MCG/KG/HR. PEEP & PS BOTH INCREASED TO 8 & ORDERS PLACED FOR SOLU-MEDROL BY PROVIDER. TVs INCREASED & THE PT IS NOW RESTING QUIETLY AGAIN.
--- NOTE | 2021-05-16 15:28 | NUR ---
Review of pt needs with nursing. [facility] consult to see if we can place a dobhoff if needed. pt nutrition needs will be high. Will review with family pt function. pt may need a peg tube during rehab. Will review with speech PT and OT to have a plan. Will speak with [facility] team would probalby be optimum to get him to [facility] for care.
--- NOTE | 2021-05-16 18:50 | NUR ---
SHIFT SUMMARY: NO ACUTE CHANGES SINCE PRIOR UPDATES. PT REMAINS INTUBATED & SEDATED. ETT SECUREMENT DEVICE CHANGED/ REPOSITIONED TO MAINTAIN SKIN INTEGRITY & ETT PLACEMENT. VENT SETTINGS: SPONTANEOUS W/ PS 8, PEEP 8 & 30% FIO2. O2 SATS > 92%. MONITOR SHOWS SR W/ HR 70s, BP STABLE. NO BM THIS SHIFT, BT x4. OGT W/ TUBE FEEDS INFUSING AT GOAL RATE, LOW RESIDUALS - SEE I&O. LANZA PATENT/ DRAINING CLEAR YELLOW URINE. SKIN CONDITION OVERALL INTACT. LOVETT TO FACE HAVE BEEN THOROUGHLY CLEANSED & NEW ABX OINTMENT APPLIED PER ORDERS THIS SHIFT. WILL CONTINUE TO MONITOR & REPORT OFF TO ONCOMING RN.
[2021-05-17 03:47] LABS: BASOPHILS ABSOLUTE AUTO 0.05 K/mm3 (0.00-0.23); BASOPHILS PERCENT AUTO 0 % (0-2); EOSINOPHILS PERCENT AUTO 0 % (0-6); Hemoglobin 10.3 g/dL (13.5-17.5); IMMATURE GRAN ABSOLUTE AUTO 0.39 K/mm3 (0.00-0.10); IMMATURE GRAN PERCENT AUTO 2 % (0-1); LYMPHOCYTES ABSOLUTE AUTO 0.27 K/mm3 (0.84-5.20); LYMPHOCYTES PERCENT AUTO 2 % (21-46); MONOCYTES ABSOLUTE AUTO 1.32 K/mm3 (0.16-1.47); MONOCYTES PERCENT AUTO 8 % (4-13); Mean Corpuscular HGB 31.2 pg (26.0-34.0); Mean Corpuscular HGB Conc 32.2 g/dL (31.5-36.5); Mean Corpuscular Volume 97 fL (80-100); Mean Platelet Volume 10.7 fL (9.1-12.4); NEUTROPHILS ABSOLUTE AUTO 15.11 K/mm3 (1.96-9.15); NEUTROPHILS PERCENT AUTO 88 % (41-73); NRBC ABSOLUTE 0.04 K/mm3 (0.00-0.02); NRBC Auto 0.2 /100 WBC (0.0-0.2); Platelet Count 250 K/mm3 (150-400); RDW Coefficient Variation 15.4 % (11.7-14.2); RDW Standard Deviation 55.3 fL (35.1-46.3); White Blood Cell Count 17.14 K/mm3 (4.00-11.30)
[2021-05-17 04:08] LABS: Anion Gap 0 mmol/L (6-16); Blood Urea Nitrogen 53 mg/dL (8-24); CO2, Blood 33 mmol/L (21-32); Calcium, Blood 7.8 mg/dL (8.5-10.1); Chloride, Blood 104 mmol/L (98-108); Creatinine, Blood 0.79 mg/dL (0.60-1.20); Glomerular Filtration Rate >60 (60-); Glucose, Blood 224 mg/dL (70-99); Phosphorus, Blood 3.3 mg/dL (2.5-4.9); Sodium, Blood 137 mmol/L (136-145)
--- NOTE | 2021-05-17 06:16 | NUR ---
SHIFT SUMMARY PATIENT SLEPT WELL THRU NIGHT. WAS ABLE TO TURN OFF VERSED DRIP, PT STILL TOLERATING VENTILATOR JUST FINE, DOES NOT APPEAR TO BE IN ANY ACUTE DISTRESS. PT MAKING ATTEMPTS TO OPEN EYES TO COMMAND, MOVES EXTREMETIES WHEN ASKED NOW, NOT SQUEEZING HANDS OR WIGGLING TOES TO COMMAND HOWEVER. GAVE DILAUDID ONCE FOR PAIN, HR/RR/BP ELEVATED, GRIMACING/COUGHING ON ETT. VSS. ASSESSMENT IS CHARTED. WILL CONTINE TO MONITOR.
--- NOTE | 2021-05-17 08:00 | NUR ---
ASSUMED CARE: REPORT RECEIVED FROM KALLI Mclaughlin RN. ASSUMED CARE OF THIS PT AT APPROX 0700. ON ASSESSMENT, THE PT IS INTUBATED & SEDATED W/ PROPOFOL & PRECEDEX. HE IS RESTING QUIETLY OVERALL BUT AWAKENS TO VERBAL STIMULUS, ATTEMPTING TO OPEN EYES, ANSWERING YES/NO QUESTIONS INTERMITTENTLY BY NODDING HAND & FOLLOWING SOME SIMPLE DIRECTIONS. THE SWELLING TO HIS FACE HAS IMPROVED SUBSTANTIALLY SINCE YESTERDAY & WOUND CARE HAS BEEN COMPLETED ORDERED TO PT's FACIAL LOVETT. LS ARE DIM IN BASES, VENT SETTINGS: SPONTANEOUS W/ PS 8, PEEP 10 & 30% FIO2. O2 SATS > 92%. MONITOR SHOWS SR W/ HR 80-90s, BP STABLE. OGT IN PLACE W/ TUBE FEEDS INFUSING AT GOAL RATE. TEMP LANZA PATENT/ DRAINING YELLOW URINE. SKIN CONDITION OVERALL INTACT, FACIAL LOVETT TREATED PER ORDERS. WILL CONTINUE TO MONITOR & UPDATE NEEDED.
--- NOTE | 2021-05-17 09:10 | NUR ---
DR TITUS: PROVIDER AT BEDSIDE TO EVAL PT. CLARIFICATION REGARDING DUPLICATE SEMGLEE ORDER REQUESTED & PROVIDER STS HE WILL REVIEW ORDERS. LABS FOR POTASSIUM RECHECK HAVE BEEN ORDERED. THE PLAN IS FOR PT TO REMAIN INTUBATED THROUGH TODAY.
--- NOTE | 2021-05-17 15:26 | NUR ---
UPDATE: ETT SECUREMENT DEVICE CHANGED. PT's FACIAL HAIR HAS BEEN TRIMMED & NEW SECUREMENT DEVICE PLACED AT APPROX 1420. AT 1500, VENT PLACED BACK ON AC W/ SETTINGS: 14/400/5/30%, PT TOLERATING WELL W/ O2 SATS > 92%.
--- NOTE | 2021-05-17 17:23 | NUR ---
SHIFT SUMMARY: NO ACUTE CHANGES SINCE PRIOR UPDATES. PT REMAINS INTUBATED & SEDATED W/ PROPOFOL & PRECEDEX. HE HAS BEEN MORE AGITATED THIS AFTERNOON, REQUIRING INCREASED SEDATION AT TIMES TO REST COMFORTABLY. LS DIM IN BASES, VENT SETTINGS: AC 14/400/5/30% W/ O2 SATS > 92%. MONITOR SHOWS SR W/ HR 70-80s, BP STABLE. OGT IN PLACE W/ TUBE FEEDS INFUSING AT GOAL RATE, LOW RESIDUALS - SEE I&O. SOFT BROWN BM x1 THIS SHIFT. TEMP LANZA PATENT/ DRAINING CLEAR YELLOW URINE. SKIN CONDITION OVERALL EDEMATOUS, INTACT. SECOND APPLICATION OF BACITRACIN OINTMENT APPLIED TO FACIAL LOVETT THIS AFTERNOON IN ORDER TO KEEP AFFECTED AREA MOIST. WILL CONTINUE TO MONITOR & REPORT OFF TO ONCOMING RN.
[2021-05-18 03:47] LABS: BASOPHILS ABSOLUTE AUTO 0.03 K/mm3 (0.00-0.23); BASOPHILS PERCENT AUTO 0 % (0-2); EOSINOPHILS PERCENT AUTO 0 % (0-6); Hematocrit 30.6 % (37.0-53.0); Hemoglobin 9.7 g/dL (13.5-17.5); IMMATURE GRAN ABSOLUTE AUTO 0.41 K/mm3 (0.00-0.10); IMMATURE GRAN PERCENT AUTO 3 % (0-1); LYMPHOCYTES ABSOLUTE AUTO 0.24 K/mm3 (0.84-5.20); LYMPHOCYTES PERCENT AUTO 2 % (21-46); MONOCYTES ABSOLUTE AUTO 0.87 K/mm3 (0.16-1.47); MONOCYTES PERCENT AUTO 6 % (4-13); Mean Corpuscular HGB 30.6 pg (26.0-34.0); Mean Corpuscular HGB Conc 31.7 g/dL (31.5-36.5); Mean Corpuscular Volume 97 fL (80-100); Mean Platelet Volume 11.1 fL (9.1-12.4); NEUTROPHILS ABSOLUTE AUTO 12.48 K/mm3 (1.96-9.15); NEUTROPHILS PERCENT AUTO 89 % (41-73); NRBC ABSOLUTE 0.02 K/mm3 (0.00-0.02); NRBC Auto 0.1 /100 WBC (0.0-0.2); Platelet Count 241 K/mm3 (150-400); RDW Coefficient Variation 15.2 % (11.7-14.2); RDW Standard Deviation 54.4 fL (35.1-46.3); Red Blood Cell Count 3.17 M/mm3 (4.30-5.90); White Blood Cell Count 14.03 K/mm3 (4.00-11.30)
[2021-05-18 04:21] LABS: Anion Gap 2 mmol/L (6-16); Blood Urea Nitrogen 45 mg/dL (8-24); Bun/Creatinine Ratio 64.8 (12.0-20.0); CO2, Blood 34 mmol/L (21-32); Calcium, Blood 7.6 mg/dL (8.5-10.1); Chloride, Blood 101 mmol/L (98-108); Creatinine, Blood 0.69 mg/dL (0.60-1.20); Glomerular Filtration Rate >60 (60-); Glucose, Blood 202 mg/dL (70-99); Sodium, Blood 137 mmol/L (136-145)
--- NOTE | 2021-05-18 06:15 | NUR ---
SHIFT SUMMARY PATIENT SLEPT WELL THRU NIGHT. EARLY IN SHIFT PT HAD SOME BLOODY SECRETIONS, HOWEVER HAVE BECOME MORE CORRIGAN/LESS BLOODY NIGHT HAS PROGRESSED. ASSESSMENT IS CHARTED. VSS. WILL CONTINUE TO MONITOR.
--- NOTE | 2021-05-18 07:27 | NUR ---
ASSUMED CARE: PT INTUBATED WITH SETTINGS AC 14/400/5/30%. PROPOFOL GTT AT 35 MCG/KG AND PRECEDEX AT 1.4 MCG/KG. OG IN PLACE WITH LANZA AND BILATERAL WRIST RESTRAINTS. NO ACUTE NEEDS AT THIS TIME.
--- NOTE | 2021-05-18 11:30 | NUR ---
FACIAL LOVETT CLEANSED WITH BABY SOAP AND WATER, BACTROBAN REAPPLIED, GRIMACE NOTED WITH WOUND CARE AND NOXIOUS STIMULI
--- NOTE | 2021-05-18 18:23 | NUR ---
SHIFT SUMMARY: PT REMAINS INTUBATED AT AC 14/400/5/30%. WAS ON PRESSURE SUPPORT MAJORITY OF DAY AND THEN STARTED HAVING APNEIC PERIODS AND BRADYPNEA. DR YODER AWARE AND INSTRUCTED TO RETURN PT TO AC. SEDATION WAS TURNED DOWN WITH PROPOFOL AT 35MCG BUT WAS TURNED BACK UP TO 45 WHEN PT BECAME RESTLESS WHEN VENT WAS RETURNED TO AC. STATES THAT PT WILL NOT GET EXTUBATED UNTIL LOVETT HEAL MORE ON FACE DUE TO DIFFICULTY PROVIDING OXYGENATION AND PRESSURE WITH THEM WHEN EXTUBATED. PROPOFOL TITRATED TO 55MCG/KG AND PRECEDEX AT 1.4 MCG/KG. PROVIDING WITH DILAUDID FOR PAIN NEEDED
--- NOTE | 2021-05-18 19:25 | NUR ---
ASSUMED CARE PT VENTED AND SEDATED. VENT SETTINGS SPONT PEEP 5/30%, SPO2 98%. SEDATED ON 45 MCG/KG OF PROPOFOL & 1.4 MCG/KG OF PRECEDEX. TF RUNNING AT GOAL RATE OF 30 ML/HR WITH 30 ML Q4H FLUSHES. RESIDUALS OF 100 AT THE BEGINNING OF THIS SHIFT. PT NOT OPENING EYES OR FOLLOWING COMMANDS AT THIS TIME, REPORTEDLY ATTEMPTS TO WHEN SEDATION IS LIGHTENED. PULSES PALPABLE X4, EDEMA NOTED TO BUE WEEPING TO RUE. LANZA DRAINING CLEAR YELLOW URINE TO GRAVITY.
[2021-05-19 04:14] LABS: BASOPHILS ABSOLUTE AUTO 0.04 K/mm3 (0.00-0.23); BASOPHILS PERCENT AUTO 0 % (0-2); EOSINOPHILS ABSOLUTE AUTO 0.01 K/mm3 (0.00-0.68); EOSINOPHILS PERCENT AUTO 0 % (0-6); Hematocrit 30.3 % (37.0-53.0); Hemoglobin 9.9 g/dL (13.5-17.5); IMMATURE GRAN ABSOLUTE AUTO 0.54 K/mm3 (0.00-0.10); IMMATURE GRAN PERCENT AUTO 4 % (0-1); LYMPHOCYTES ABSOLUTE AUTO 0.33 K/mm3 (0.84-5.20); LYMPHOCYTES PERCENT AUTO 3 % (21-46); MONOCYTES ABSOLUTE AUTO 0.58 K/mm3 (0.16-1.47); MONOCYTES PERCENT AUTO 5 % (4-13); Mean Corpuscular HGB 31.3 pg (26.0-34.0); Mean Corpuscular HGB Conc 32.7 g/dL (31.5-36.5); Mean Corpuscular Volume 96 fL (80-100); Mean Platelet Volume 10.4 fL (9.1-12.4); NEUTROPHILS ABSOLUTE AUTO 11.16 K/mm3 (1.96-9.15); NEUTROPHILS PERCENT AUTO 88 % (41-73); Platelet Count 245 K/mm3 (150-400); RDW Coefficient Variation 14.7 % (11.7-14.2); RDW Standard Deviation 51.8 fL (35.1-46.3); Red Blood Cell Count 3.16 M/mm3 (4.30-5.90); White Blood Cell Count 12.66 K/mm3 (4.00-11.30)
[2021-05-19 04:30] LABS: Anion Gap 2 mmol/L (6-16); Blood Urea Nitrogen 40 mg/dL (8-24); Bun/Creatinine Ratio 57.9 (12.0-20.0); CO2, Blood 34 mmol/L (21-32); Chloride, Blood 100 mmol/L (98-108); Creatinine, Blood 0.69 mg/dL (0.60-1.20); Glomerular Filtration Rate >60 (60-); Glucose, Blood 231 mg/dL (70-99); Potassium, Blood 5.9 mmol/L (3.5-5.5); Sodium, Blood 136 mmol/L (136-145)
--- NOTE | 2021-05-19 07:10 | NUR ---
SHIFT SUMMARY PT REMAINS INTUBATED/SEDATED. VENT SETTINGS AC 14/400/5/30%. PROPOFOL INFUSING AT 55 MCG/KG, PRECEDEX 1.4 MCG/KG, AND NS TKO. VSS. LANZA DRAINING TO GRAVITY, CLEAR YELLOW URINE. BURN CARE DONE THIS SHIFT, PT OBSERVED GRIMACING DURING WOUND CLEANSING. TF PIVOT 1.5 RUNNING AT GOAL RATE OF 30 ML/HR WITH 30 Q4H WATER FLUSHES. WEEPING EDEMA TO R ARM, NOTABLE SWELLING TO FACE/LIP. LUNGS WITH DIMINISHED BASES.
--- NOTE | 2021-05-19 07:45 | NUR ---
ASSUMED CARE REPORT FROM EKATERINA WICK AT 0700. PT INTUBATED AND SEDATED. VENT SETTINGS AC 14/400/5/30%. PROPOFOL AND PRECEDEX FOR SEDATION. PT SQUEEZES HANDS BILATERALLY, WIGGLES LEFT FOOT ON COMMAND. COUGH/GAG REFLEX. GRIMACES c CARE. LUNGS CLEAR, DIMINISHED IN BASES. SCANT CORRIGAN SECRETIONS THROUGH ETT. ABD DISTENDED, HYPOACTIVE BT. TUBE FEEDS AT GOAL, 30 ML/HR. RESIDUALS 10 ML THIS AM. LANZA PATENT, DRAINING CLEAR YELLOW URINE TO GRAVITY. 3+ EDEMA TO UPPER EXTREMITIES. 1+ EDEMA BLE. PICC TO LUE, POWERGLIDE RUE, DRESSINGS C/D/I. 2ND DEGREE LOVETT TO 60% OF FACE, SLOUGHING c SEROUS DRAINAGE. WILL CLEAN c BABY SOAP AND WATER AND APPLY BACITRAIN ORDERED. VSS. WILL CONTINUE TO MONITOR.
--- NOTE | 2021-05-19 17:21 | NUR ---
SHIFT SUMMARY PT REMAINS INTUBATED AND SEDATED. VENT SETTINGS AC 14/400/5/30%. PROPOFOL GTT 55 MCG/KG/MIN, PRECEDEX 1.4 MCG/KG/HR. PT FOLLOWS SIMPLE COMMANDS. PT ON SPONT HALF OF SHIFT. CHANGED BACK TO AC AFTER MEDICATED c DILAUDID FOR WOUND CARE. LUNGS CLEAR. SCANT SECRETIONS THROUGH ETT. TUBE FEEDS CONTINUE AT GOAL, 30 ML/HR. RESIDUALS <50 ML THIS SHIFT. LANZA PATENT, DRAINING CLEAR YELLOW URINE TO GRAVITY, 1950 ML OUT THIS SHIFT. FOOT DROP BOOTS APPLIED THIS SHIFT. WOUND CARE TO LOVETT ON FACE, CLEANED c BABY SOAP AND WATER, BACITRACIN APPLIED. CONTINUES TO HAVE SEROUS DRAINAGE/SLOUGHING. BP STABLE. SR, RATE 70'S. WILL CONTINUE TO MONITOR UNTIL REPORT TO ONCOMING NURSE.
--- NOTE | 2021-05-19 19:59 | NUR ---
ASSUMED CARE REPORT RECEIVED FROM STEPHANIE WICK AT 1900. PT INTUBATED/SEDATED. VENT SETTINGS AC 14/400/5/30%. PROPOFOL INFUSING AT 55 MCG/KG AND PRECEDEX AT 1.4 MCG/KG. LUNGS CLEAR WITH DIMINISHED BASES. TF PIVOT 1.5 RUNNING AT GOAL RATE OF 30 ML/HR WITH 30 Q4H WATER FLUSHES, RESIDUALS OF 30 ML THIS ASSESSMENT. FACIAL WOUND CARE TO BE DONE THIS SHIFT. LANZA DRAINING CLEAR YELLOW URINE TO GRAVITY.
[2021-05-20 04:36] LABS: BASOPHILS ABSOLUTE AUTO 0.04 K/mm3 (0.00-0.23); BASOPHILS PERCENT AUTO 0 % (0-2); EOSINOPHILS ABSOLUTE AUTO 0.01 K/mm3 (0.00-0.68); EOSINOPHILS PERCENT AUTO 0 % (0-6); Hematocrit 31.2 % (37.0-53.0); IMMATURE GRAN ABSOLUTE AUTO 0.36 K/mm3 (0.00-0.10); IMMATURE GRAN PERCENT AUTO 3 % (0-1); LYMPHOCYTES ABSOLUTE AUTO 0.36 K/mm3 (0.84-5.20); LYMPHOCYTES PERCENT AUTO 3 % (21-46); MONOCYTES ABSOLUTE AUTO 0.82 K/mm3 (0.16-1.47); MONOCYTES PERCENT AUTO 6 % (4-13); Mean Corpuscular HGB 30.8 pg (26.0-34.0); Mean Corpuscular HGB Conc 32.1 g/dL (31.5-36.5); Mean Corpuscular Volume 96 fL (80-100); Mean Platelet Volume 10.5 fL (9.1-12.4); NEUTROPHILS ABSOLUTE AUTO 12.96 K/mm3 (1.96-9.15); NEUTROPHILS PERCENT AUTO 89 % (41-73); Platelet Count 275 K/mm3 (150-400); RDW Coefficient Variation 14.8 % (11.7-14.2); RDW Standard Deviation 52.7 fL (35.1-46.3); Red Blood Cell Count 3.25 M/mm3 (4.30-5.90); White Blood Cell Count 14.55 K/mm3 (4.00-11.30)
[2021-05-20 05:01] LABS: Anion Gap 2 mmol/L (6-16); Blood Urea Nitrogen 38 mg/dL (8-24); Bun/Creatinine Ratio 51.6 (12.0-20.0); CO2, Blood 35 mmol/L (21-32); Calcium, Blood 8.1 mg/dL (8.5-10.1); Chloride, Blood 100 mmol/L (98-108); Creatinine, Blood 0.74 mg/dL (0.60-1.20); Glomerular Filtration Rate >60 (60-); Glucose, Blood 180 mg/dL (70-99); Potassium, Blood 5.4 mmol/L (3.5-5.5); Sodium, Blood 137 mmol/L (136-145)
--- NOTE | 2021-05-20 06:40 | NUR ---
SHIFT SUMMARY PT REMAINS INTUBATED AND SEDATED. VENT SETTINGS AC 14/400/5/30%. PROPOFOL INFUSING AT 55 MCG/KG, PRECEDEX AT 1.4 MCG/KG AND NS TKO. TF PIVOT 1.5 REMAINS AT 30 ML/HR WITH 30 Q4H WATER FLUSHES. LANZA DRAINING TO GRAVITY. PT FOLLOWING COMMANDS. WOUND CARE TO FACIAL LOVETT DONE THIS SHIFT, BABY SOAP AND WATER TO CLEANSE FOLLOWED BY BACITRACIN PER ORDERS. 3+ EDEMA TO BUE, WEEPING TO RUE. PREVALON BOOTS TO BLE.
--- NOTE | 2021-05-20 10:37 | NUR ---
PT INTUBATED AND SEDATED WITH PROPOFOL AND PRECEDEX. WILL FOLLOW COMMANDS TO LINE DECORATOR HANDS AND MOVE FEET. PT WILL RAISE EYEBROW'S BUT NOT OPEN EYE'S ON COMMAND. FACIAL LOVETT TO CHEEKS AND NOSE. SKIN IS SLOUGHING OFF AND MOIST. FACIAL SWELLING HAS IMPROVED.
--- NOTE | 2021-05-20 15:26 | NUR ---
THIS AFTERNOON PT WAS ON SBT AND DOING WELL. WAS ANSWERING SOME QUESTIONS BY NODDING YES OR NO. WAS FOLLOWING COMMANDS TO HVAC INSTRUCTOR AND MOVE LEGS. PT WAS TRYING TO TALK AROUND ETT AND HAD PUSHED IT OUT A SMALL AMOUNT. DR. RIVERO AT BEDSIDE AND WANTED TO TRY EXTUBATING PT. AT 1320 PT WAS EXTUBATED. HE QUICKLY HAD RESP DISTRESS AND WAS NOT MOVING ANY AIR. HR INCREASED TO 180'S AND BP INCREASED. ONE DOSE OF CARDIZEM GIVEN WITHOUT RESULTS. BIPAP WAS TRIED FOR A SHORT AMOUNT OF TIME BUT FAILED. DR. RIVERO RE-INTUBATED PT AT 1345 AFTER RECEIVING 60MCG OF PROPOFOL AND 2MG OF VERSED. OG TUBE REPLACED. PLACED BACK ON SEDATION WITH PREVIOUS VENT SETTINGS.
[2021-05-20 16:40] LABS: PCO2 Arterial 55.6 mmHg (35-45); PO2 Arterial 70.5 mmHg (80-100); pH Blood Arterial 7.43 (7.35-7.45)
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
--- NOTE | 2021-05-20 18:47 | NUR ---
SUMMARY PT INTUBATED AND SEDATED WITH PROPOFOL AND PRECEDEX. PT WAS EXTUBATED TODAY BUT WENT INTO RESP DISTRESS ALMOST IMMEDIATELY. BIPAP WAS TRIED FOR SHORT PERIOD BUT PT HAD TO BE RE-INTUBATED. WHILE HE WAS IN RESP DISTRESS, HIS HR WENT UP TO 180'S AND BECAME HYPERTENSIVE. WAS NOT MOVING MUCH AIR WITH RESPIRATIONS. AFTER PT WAS RE-INTUBATED HIS HR AND BP CAME BACK DOWN. HAS BEEN WELL SEDATED SINCE THIS EVENT. FAMILY WAS UPDATED BY DR. RIVERO AND DISCUSSION ABOUT POSSIBLE TRACH PLACEMENT WAS HAD. OGT WAS REPLACED AND PT WAS STARTED BACK ON TUBE FEED AT PREVIOUS SETTINGS. WILL REPORT TO ONCOMING RN.
--- NOTE | 2021-05-20 20:00 | NUR ---
ASSUMING PT CARE: PT INTUBATED & SEDATED. VENT: AC 14/400, 8/30%. GTTs: PROPOFOL 35mcg/kg/min, PRECEDEX 1.4mcg/kg/hr. PT WITHDRAWS SOMEWHAT W/ ORAL CARE, COUGHS AGAINST ETT & FLEXES FEET WHEN SEDATION IS DEC. HOWEVER, NO INTENTIONAL RESPONSE TO VERBAL COMMANDS. WILL PERFORM A MORE SUBSTANTIAL SEDATION IN THE PRINT PRODUCTION COORDINATOR. WILL CONTINUE TO MONITOR & REPORT APPROPRIATE.
--- NOTE | 2021-05-21 05:14 | NUR ---
SHIFT SUMMARY: PT REMAINS INTUBATED & SEDATED. VENT: AC 14/400, 8/30%. GTTs: PROPOFOL 35mcg/kg/min, PRECEDEX 1.0mcg/kg/hr. TF @ GOAL OF 30ml/hr. PT CONTINUES TO WITHDRAW FROM PAIN WHEN SEDATION IS DECREASED, HOWEVER PT STILL UNABLE TO FOLLOW ANY COMMANDS OR OPEN EYES. ETT & ORAL SECRETIONS CONTINUE TO BE CORRIGAN & PINK TINGED. NO BM THIS SHIFT. 1,200 URINE OUTPUT. LIMBS ELEVATED ON PILLOWS & GIVEN FREQUENT ROM D/T DEPENENT EDEMA OF BUE. NO ACUTE NEG CHANGES THIS SHIFT. WILL CONTINUE TO MONITOR & REPORT APPROPRIATE.
[2021-05-21 09:11] LABS: BASOPHILS ABSOLUTE AUTO 0.03 K/mm3 (0.00-0.23); BASOPHILS PERCENT AUTO 0 % (0-2); EOSINOPHILS ABSOLUTE AUTO 0.04 K/mm3 (0.00-0.68); EOSINOPHILS PERCENT AUTO 0 % (0-6); Hematocrit 30.3 % (37.0-53.0); Hemoglobin 9.5 g/dL (13.5-17.5); IMMATURE GRAN ABSOLUTE AUTO 0.17 K/mm3 (0.00-0.10); IMMATURE GRAN PERCENT AUTO 1 % (0-1); LYMPHOCYTES ABSOLUTE AUTO 0.75 K/mm3 (0.84-5.20); LYMPHOCYTES PERCENT AUTO 5 % (21-46); MONOCYTES ABSOLUTE AUTO 1.12 K/mm3 (0.16-1.47); MONOCYTES PERCENT AUTO 7 % (4-13); Mean Corpuscular HGB 30.2 pg (26.0-34.0); Mean Corpuscular HGB Conc 31.4 g/dL (31.5-36.5); Mean Corpuscular Volume 96 fL (80-100); Mean Platelet Volume 10.5 fL (9.1-12.4); NEUTROPHILS ABSOLUTE AUTO 13.89 K/mm3 (1.96-9.15); NEUTROPHILS PERCENT AUTO 87 % (41-73); Platelet Count 253 K/mm3 (150-400); RDW Standard Deviation 52.8 fL (35.1-46.3); Red Blood Cell Count 3.15 M/mm3 (4.30-5.90)
[2021-05-21 09:23] LABS: Anion Gap 3 mmol/L (6-16); Blood Urea Nitrogen 38 mg/dL (8-24); Bun/Creatinine Ratio 54.1 (12.0-20.0); CO2, Blood 36 mmol/L (21-32); Calcium, Blood 8.3 mg/dL (8.5-10.1); Chloride, Blood 100 mmol/L (98-108); Glomerular Filtration Rate >60 (60-); Glucose, Blood 117 mg/dL (70-99); Potassium, Blood 4.2 mmol/L (3.5-5.5); Sodium, Blood 139 mmol/L (136-145)
--- NOTE | 2021-05-21 10:00 | NUR ---
PT INTUBATED AND SEDATED WITH PROPOFOL AND PRECEDEX. WHEN SEDATION TURNED DOWN PT WILL OPEN EYE'S AND FOLLOW COMMANDS TO THAI MASSEUR HANDS AND MOVE FEET. PT HAS LOVETT TO CHEEKS AND NOSE THAT ARE MOIST. TOLERATING TUBE FEEDS. STARTED MOM THIS AM DUE TO NO BM IN A FEW DAYS. WILL GIVE SUPPOSITORY IF NEEDED.
--- NOTE | 2021-05-21 18:39 | NUR ---
SUMMARY PT INTUBATED AND SEDATED WITH PROPOFOL AND PRECEDEX. PT WILL OPEN EYE'S AND CAN TESTER PRINTED CIRCUIT BOARDS HANDS. NO CHANGE IN VENT SETTINGS TODAY. TOLERATING TUBE FEED. HAD NOT HAD A BM IN A FEW DAYS. SUPPOSITORY GIVEN AND PT HAD EX LARGE LIQUID BM. FACIAL LOVETT REMAIN THE SAME. NO OTHER CHANGES THIS SHIFT.
--- NOTE | 2021-05-22 06:37 | NUR ---
SHIFT SUMMARY: PT REMAINS INTUBATED & SEDATED. VENT: AC 14/400, 8/30%. GTTs: PROPOFOL 50mcg/hr/min, PRECEDEX 1.4mcg/kg/hr. TF @ GOAL RATE OF 30ml/hr. WHEN SEDATION IS DECREASED, PT PULLS @ RESTRAINTS & BEGINS TO COUGH AGAINST ETT. DILAUDID PRN HAS RESOLVED PT's AGITATION GREATLY. INCREASINGLY BLOODY SECRETIONS FROM ETT. NO BM THIS SHIFT. NO ACUTE NEG CHANGES THIS SHIFT. WILL DISCUSS ADDITION OF HRIS DEVELOPER W/ DAYTIME RN TO DISCUSS W/ MD. WILL CONTINUE TO MONITOR & REPORT APPROPRIATE.
[2021-05-22 07:25] LABS: BASOPHILS ABSOLUTE AUTO 0.02 K/mm3 (0.00-0.23); BASOPHILS PERCENT AUTO 0 % (0-2); EOSINOPHILS ABSOLUTE AUTO 0.02 K/mm3 (0.00-0.68); EOSINOPHILS PERCENT AUTO 0 % (0-6); Hematocrit 27.8 % (37.0-53.0); IMMATURE GRAN ABSOLUTE AUTO 0.16 K/mm3 (0.00-0.10); IMMATURE GRAN PERCENT AUTO 1 % (0-1); LYMPHOCYTES ABSOLUTE AUTO 0.56 K/mm3 (0.84-5.20); LYMPHOCYTES PERCENT AUTO 3 % (21-46); MONOCYTES ABSOLUTE AUTO 1.12 K/mm3 (0.16-1.47); MONOCYTES PERCENT AUTO 5 % (4-13); Mean Corpuscular HGB Conc 32.4 g/dL (31.5-36.5); Mean Corpuscular Volume 96 fL (80-100); Mean Platelet Volume 10.2 fL (9.1-12.4); NEUTROPHILS ABSOLUTE AUTO 19.48 K/mm3 (1.96-9.15); NEUTROPHILS PERCENT AUTO 91 % (41-73); Platelet Count 243 K/mm3 (150-400); RDW Coefficient Variation 14.7 % (11.7-14.2); White Blood Cell Count 21.36 K/mm3 (4.00-11.30)
[2021-05-22 07:40] LABS: Anion Gap 1 mmol/L (6-16); Blood Urea Nitrogen 37 mg/dL (8-24); Bun/Creatinine Ratio 56.7 (12.0-20.0); CO2, Blood 37 mmol/L (21-32); Chloride, Blood 100 mmol/L (98-108); Creatinine, Blood 0.65 mg/dL (0.60-1.20); Glomerular Filtration Rate >60 (60-); Glucose, Blood 146 mg/dL (70-99); Potassium, Blood 4.4 mmol/L (3.5-5.5); Sodium, Blood 138 mmol/L (136-145)
--- NOTE | 2021-05-22 18:25 | NUR ---
SUMMARY PT INTUBATED AND SEDATED WITH PROPOFOL AND PRECEDEX. WHEN SEDATION TURNED DOWN PT IS ABLE TO FOLLOW COMMANDS BUT DID BECOME ASYNCHRONOUS WITH THE VENT AND HAD TO UP SEDATION AGAIN. FACIAL LOVETT UNCHANGED. PLACED EXUDERM UNDER ETT SECURMENT ON LOWER LIP TO PREVENT SKIN BREAKDOWN. NO OTHER CHANGES THIS SHIFT. PLAN IS FOR POSSIBLE TRACH THIS WEEK.
--- NOTE | 2021-05-22 20:00 | NUR ---
ASSUMING PT CARE: PT INTUBATED & SEDATED. VENT: AC 14/400, 8/30%. GTTs: PROPOPFOL 50mcg/kg/min, PRECEDEX 1.4mcg/kg/hr. PT GRIMACES & FLEXES LIMBS W/ PAINFUL STIMULI. UNABLE TO FOLLOW COMMANDS. SWB IN PLACE. VS STABLE. MOD AMNT OF CORRIGAN/PINK SPUTUM FROM ETT. FACIAL LOVETT MOISTENED W/ BACITRACIN. WILL CONTINUE TO MONITOR & REPORT APPROPRIATE.
[2021-05-23 04:13] LABS: BASOPHILS ABSOLUTE AUTO 0.04 K/mm3 (0.00-0.23); BASOPHILS PERCENT AUTO 0 % (0-2); EOSINOPHILS PERCENT AUTO 0 % (0-6); Hematocrit 28.5 % (37.0-53.0); IMMATURE GRAN ABSOLUTE AUTO 0.18 K/mm3 (0.00-0.10); IMMATURE GRAN PERCENT AUTO 1 % (0-1); LYMPHOCYTES ABSOLUTE AUTO 0.27 K/mm3 (0.84-5.20); LYMPHOCYTES PERCENT AUTO 1 % (21-46); MONOCYTES ABSOLUTE AUTO 0.84 K/mm3 (0.16-1.47); MONOCYTES PERCENT AUTO 4 % (4-13); Mean Corpuscular HGB 30.5 pg (26.0-34.0); Mean Corpuscular HGB Conc 31.6 g/dL (31.5-36.5); Mean Corpuscular Volume 97 fL (80-100); Mean Platelet Volume 10.4 fL (9.1-12.4); NEUTROPHILS ABSOLUTE AUTO 22.25 K/mm3 (1.96-9.15); NEUTROPHILS PERCENT AUTO 94 % (41-73); Platelet Count 246 K/mm3 (150-400); RDW Coefficient Variation 14.7 % (11.7-14.2); RDW Standard Deviation 51.8 fL (35.1-46.3); Red Blood Cell Count 2.95 M/mm3 (4.30-5.90); White Blood Cell Count 23.58 K/mm3 (4.00-11.30)
[2021-05-23 04:27] LABS: International Normalized Ratio 0.95; Prothrombin Time Results 10.3 Sec (9.7-11.5)
[2021-05-23 04:31] LABS: Anion Gap 2 mmol/L (6-16); Blood Urea Nitrogen 31 mg/dL (8-24); Bun/Creatinine Ratio 53.2 (12.0-20.0); CO2, Blood 34 mmol/L (21-32); Chloride, Blood 101 mmol/L (98-108); Creatinine, Blood 0.58 mg/dL (0.60-1.20); Glomerular Filtration Rate >60 (60-); Glucose, Blood 158 mg/dL (70-99); Potassium, Blood 4.5 mmol/L (3.5-5.5); Sodium, Blood 137 mmol/L (136-145)
--- NOTE | 2021-05-23 05:00 | NUR ---
UPDATE: RT CALLED TO BEDSIDE. ETT HOLISTER REMOVED & SKIN BENEATH CLEANSED & DRIED. GAUZE PLACED UNDER CHIN PORTION OF HOLISTER TO PREVENT BREAKDOWN & TENDERNESS. HOLISTER IS PLACE IN AN UPSIDE DOWN POSITION TO AVOID DISRUPTION OF FACIAL LOVETT.
--- NOTE | 2021-05-23 06:12 | NUR ---
SHIFT SUMMARY: PT REMAINS INTUBATED & SEDATED. VENT: AC 14/400, 8/30%. GTTs: PRECEDEX 1.4mcG/kg/hr, PROPOFOL 40mcg/kg/hr. WITHDRAWS FROM & BECOMES RESTLESS W/ PAINFUL STIMULI; RESOLVES W/ PRN DILAUDID. PT UNABLE TO TOLERATE SEDATION VACATION HE BECOMES TACHYCARDIC & COUGHS HARD AGAINST ETT W/ DECREASES IN SEDATION. WILL CONTINUE TO DISCUSS SUMMER COUNSELOR/FENTANYL GTT W/ MORNING CHARGE & MORNING RN. TF ON HOLD FOR MOST OF THE NIGHT PT FOUND TO HAVE TF IN THE ORAL CAVITY. NO RESIDUALS. OGT ASSESSED FOR PLACEMENT - BT AUDIBLE OVER EPIGASTRUM. NO BM THIS SHIFT, MOM GIVEN. WILL CONTINUE TO MONITOR & REPORT APPROPRIATE.
--- NOTE | 2021-05-23 10:34 | NUR ---
ASSUMED CARE OF PT, REPORT FROM SHAMIKA PERDOMO. PT INTUBATED AND SEDATED. VENT SETTINGS SWITCHED FROM AC 14/400/8/30% TO SPONTANEOUS 10/5, 30% BY DR. TITUS @0930, PT TOLERATING WELL. . PROPOFOL @ 40 MCG/KG/MIN, PRECEDEX 1.4 MCG/KG/HR. PT MINIMALLY RESPONSIVE TO PAINFUL STIMULI, OCCASIONALLY OPENS EYES TO VERBAL STIMULI, FAILS TO FOLLOW COMMANDS. PT'S TUBE FEEDING PLACED ON STANDBY OVERNIGHT D/T TUBE FEED IN PT'S MOUTH. THIS RN REMOVED OGT THAT WAS FOUND TO BE KINKED CAUSING TUBE FEED TO BACK UP. REPLACED OGT, ASPIRATED GASTRIC CONTENTS FOR PLACEMENT VERIFICATION. TUBE FEED RESTARTED AT GOAL RATE. WILL CONTINUE TO CLOSELY MONITOR FOR GASTRIC CONTENT/TUBE FEED IN MOUTH. LANZA PATENT AND DRAINING. FACIAL LOVETT MOIST WITH SEROSANGUOUS OUTPUT, MEPITEL TO DRY WOUNDS. SEE FULL SHIFT ASSESSMENT.
--- NOTE | 2021-05-23 11:29 | NUR ---
ATTEMPTED TO RETURN DAUGHTER (S) PHONE CALL FOR UPDATE. LEFT MESSAGE REQUESTING CALL BACK.
--- NOTE | 2021-05-23 12:55 | NUR ---
SPOKE WITH PT'S DAUGHTER FEBRUARY. UPDATED WITH PLAN TO TRACH PT TOMORROW. WILL CALL PT'S DAUGHTER BACK WHEN PLAN WITH JAZZ NAILS AND ARIELA IN PLACE. UPDATED PT'S VERBAL RELEASE OF INFORMATION TO INCLUDE ALL PT'S CHILDREN AND COMPLETED CONSENT FOR TRANSFUSION.
--- NOTE | 2021-05-23 14:21 | NUR ---
CONSULTED DR. LOPEZ REGARDING TRACH PLACEMENT. DR. LOPEZ TO ASSESS PT FOR POSSIBLE TRACH THIS AFTERNOON. PHONE CALL/VOICEMAIL LEFT FOR DR. SIERRA REGARDING PEG TUBE PLACEMENT.
--- NOTE | 2021-05-23 16:31 | NUR ---
SPOKE WITH PT'S DAUGHTER, UPDATED ON PLAN TO PLACE TRACH AND PEG TUBE BY DR. LOPEZ TOMORROW 05/24/21 AROUND 4 PM. REVIEWED PROCEDURE AND REASON FOR PROCEDURES. ENCOURAGED DAUGHTER TO WRITE DOWN ADDITIONAL CONCERNS AND QUESTIONS AND REVIEW WITH PHYSICIAN TOMORROW. PT'S TUBE FEED RESTARTED, NURSE NOTIFY TO STOP TUBE FEED AT 0700 FOR PLANNED PROCEDURE.
[2021-05-23 17:30] LABS: SARS-Cov-2 (COVID-19) PCR, MMC NEGATIVE (NEGATIVE)
--- NOTE | 2021-05-23 17:34 | NUR ---
SHIFT SUMMARY PT REMAINS INTUBATED AND SEDATED. PT ON SPONTANEOUS 08/23, 30% SINCE 929 AND TOLERATING WELL. PT REMAINS SEDATED WITH PROPOFOL 40 MCG/KG/MIN AND PRECEDEX 1.4 MCG/KG/HR. PT OPENS EYES TO VERBAL STIMULI AND WHILE REPOSITIONING AND PERFORMING ORAL CARE. PT'S VSS T/O SHIFT. 1000 ML URINARY OUTPUT FROM LANZA. PT'S DAUGHTER UPDATED WITH PLAN TO TRACH AND PEG TOMORROW. PLEASE SEE PREVIOUS NOTES FROM THIS SHIFT. WILL REPORT TO ONCOMING NURSE.
--- NOTE | 2021-05-23 20:17 | NUR ---
Review of pt plan and needs with intesivist in rounds plan is still trach and peg tube.
--- NOTE | 2021-05-23 20:23 | NUR ---
ASSUMING PT CARE: PT INTUBATED & SEDATED. VENT: AC 14/400, 8/30%. GTTs: PROPOFOL 40mcg/kg/min, PRECEDEX 1.4mcg/kg/hr. PT WITHDRAWS W/ ORAL CARE & WINCES W/ POSITION CHANGES. PT RAISES HIS EYEBROWS & EYES FLUTTER TO HIS NAME, HOWEVER UNABLE TO FULLY OPEN HIS EYES. SEE SHIFT ASSESSMENT. PT TOLERATING FEEDS WELL. 60ml RESIDUALs. WILL CONTINUE TO MONITOR & REPORT APPROPRIATE.
--- NOTE | 2021-05-23 20:23 | NUR ---
ASSUMING PT CARE: PT INTUBATED & SEDATED. VENT: SPONT 10/5, 30%, TV 500s-600s. GTTs: PROPOFOL 40mcg/kg/min, PRECEDEX 1.4mcg/kg/hr. PT WITHDRAWS W/ ORAL CARE & WINCES W/ POSITION CHANGES. PT RAISES HIS EYEBROWS & EYES FLUTTER TO HIS NAME, HOWEVER UNABLE TO FULLY OPEN HIS EYES. SEE SHIFT ASSESSMENT. PT TOLERATING FEEDS WELL. 60ml RESIDUALs. WILL CONTINUE TO MONITOR & REPORT APPROPRIATE.
--- NOTE | 2021-05-24 01:00 | NUR ---
UPDATE: VENT FROM SPONT TO AC PT NOTED TO DECREASING TV FROM 500s TO LOW 300s. NO DISTRESS NOTED, NO ACUTE CHANGES IN VS, SPO2 >92%. RT CALLED TO BEDSIDE & PLACED BACK ON AC 14/400, 8/30%. PT TOLERATING WELL. RIMA.
[2021-05-24 03:21] LABS: BASOPHILS ABSOLUTE AUTO 0.02 K/mm3 (0.00-0.23); BASOPHILS PERCENT AUTO 0 % (0-2); EOSINOPHILS ABSOLUTE AUTO 0.07 K/mm3 (0.00-0.68); EOSINOPHILS PERCENT AUTO 1 % (0-6); Hemoglobin 8.6 g/dL (13.5-17.5); IMMATURE GRAN ABSOLUTE AUTO 0.09 K/mm3 (0.00-0.10); IMMATURE GRAN PERCENT AUTO 1 % (0-1); LYMPHOCYTES ABSOLUTE AUTO 0.71 K/mm3 (0.84-5.20); LYMPHOCYTES PERCENT AUTO 5 % (21-46); MONOCYTES ABSOLUTE AUTO 0.99 K/mm3 (0.16-1.47); MONOCYTES PERCENT AUTO 8 % (4-13); Mean Corpuscular HGB Conc 31.9 g/dL (31.5-36.5); Mean Corpuscular Volume 98 fL (80-100); Mean Platelet Volume 10.2 fL (9.1-12.4); NEUTROPHILS ABSOLUTE AUTO 11.22 K/mm3 (1.96-9.15); NEUTROPHILS PERCENT AUTO 86 % (41-73); Platelet Count 236 K/mm3 (150-400); RDW Coefficient Variation 14.9 % (11.7-14.2); RDW Standard Deviation 54.1 fL (35.1-46.3); Red Blood Cell Count 2.77 M/mm3 (4.30-5.90)
[2021-05-24 03:36] LABS: Anion Gap 1 mmol/L (6-16); Blood Urea Nitrogen 38 mg/dL (8-24); Bun/Creatinine Ratio 55.9 (12.0-20.0); CO2, Blood 36 mmol/L (21-32); Calcium, Blood 8.1 mg/dL (8.5-10.1); Chloride, Blood 103 mmol/L (98-108); Creatinine, Blood 0.68 mg/dL (0.60-1.20); Glomerular Filtration Rate >60 (60-); Glucose, Blood 136 mg/dL (70-99); Potassium, Blood 3.8 mmol/L (3.5-5.5); Sodium, Blood 140 mmol/L (136-145)
--- NOTE | 2021-05-24 06:29 | NUR ---
SHIFT SUMMARY: PT REMAINS INTUBATED & SEDATED. VENT: AC 14/400, 8/45%. GTTs: PROPOFOL 30mcg/kg/min, PREDECEX 1.4mcg/kg/hr. SEDATION VACAY WAS SUCCESSFUL, PT OPENED EYES TO NAME & ABLE TO FOLLOW SOME COMMANDS. ORAL & ETT SECRETIONS BECAME PROGRESSIVELY THICKER & COPIOUS LAST NIGHT & PT HAD INCREASING DIFF TOLERATING ETT & MAINTAINING TIDAL VOLUMES W/OUT COUGHING. SATS DEC TO 88%. AFTER VENT CIRCUIT REPLACED, FREQUENT SUCTIONING, PRN DILAUDID, &INC FiO2, PT WAS ABLE TO REST & SATS INC TO >95%. PT OTHERWISE STABLE T/O NIGHT. PLAN FOR TRACH & PEG @ BEDSIDE TODAY W/ DR. LOPEZ. WILL CONTINUE TO MONITOR UNTIL REPORT OFF TO ONCOMING RN.
--- NOTE | 2021-05-24 07:40 | NUR ---
ASSUMED CARE REPORT FROM CONOR WICK AT 0700. PT INTUBATED AND SEDATED. VENT SETTINGS AC 14/400/8/35%. PROPOFOL AND PRECEDEX GTT FOR SEDATION. PT UNRESPONSIVE TO VERBAL OR PAINFUL STIMULI. WILL TITRATE SEDATION DOWN. LUNGS CLEAR. LARGE AMOUNT OF ORAL AND CORRIGAN SECRETIONS FROM ETT. COUGH/GAG/SWALLOW REFLEX PRESENT. ABD ROUND, DISTENDED, FIRM. HYPOACTIVE BT. TUBE FEEDS PLACED ON STANDBY FOR PEG TODAY. LANZA PATENT, DRAINING CLEAR YELLOW URINE TO GRAVITY. 2+ EDEMA TO UPPER EXTREMITIES. PICC TO LUE, POWERGLIDE TO RUE. LOVETT TO FACE, SEE PHOTOS AND SKIN ASSESSMENT. VSS. WILL CONTINUE TO MONITOR.
--- NOTE | 2021-05-24 15:02 | NUR ---
05/24/21 1502 Lupillo Swain History, Chart, Medications and Allergies reviewed before start of procedure.MONITOR INTACT WITH CONTINUOUS PULSE OXIMETRY AND INTERMITTENT BP.3-LEAD EKG REVIEWED WITH PHYSICIAN PRIOR TO START OF PROCEDURE.O2 VIA N/C INTACT THROUGHOUT SEDATION/PROCEDURE. PT INTUBATED ON VENTILATOR WITH PROPOFOL SEDATION.
--- NOTE | 2021-05-24 17:17 | NUR ---
SHIFT SUMMARY TRACH AND PEG PLACEMENT THIS SHIFT. 8 PERC TRACH PLACED BY DR LOPEZ. VENT SETTINGS UNCHANGED, AC 14/400/8/35%. PEG TUBE PLACED. GRAVITY DRAINING AT THIS TIME PER DR LOPEZ. CAN USE FOR MEDS 6 HRS p INSERTION, TUBE FEEDS STARTING TOMORROW. PLACED AT 1600. LANZA PATENT, DRAINING CLEAR YELLOW URINE TO GRAVITY. VSS. PROPOFOL AND PRECEDEX GTT FOR SEDATION. WILL CONTINUE TO MONITOR UNTIL REPORT TO ONCOMING NURSE.
[2021-05-24 21:16] LABS: Hematocrit 29.6 % (37.0-53.0); Hemoglobin 9.3 g/dL (13.5-17.5)
--- NOTE | 2021-05-24 23:16 | NUR ---
ASSUMED ACRE AT 1930. PATIENT WITH TRACH MIDLINE WITH VENT AC 14, TV 400, PEEP 8, FIO2 35% SUCTIONING BRIGHT RED VIA TRACH. PEG TUBE TO GRAVITY DRAIN AT FIRST DRAINING DARK BROWN/BLOODY BILE, NOW AT 2300 DRAINING MORE LIGHT BROWN TO YELLOW BILE, HS MEDS HELD DUE TO THE AMT OF DRAINAGE THAT CONTINUES. AT APROX 2015 PATIENT HEART RATE WENT UP TO 150-160'S AFIB WITH RVR, PATIENT COUGHING AND GRIMACING, DILAUDID GIVEN FOR PAIN AND PRECEDEX TITRATED BACK UP TO 1.4 MCG PROPOFOL CONTINUED 40 MCG. HEART RATE CONTINUED 125-130 AND BP DOWN TO 68/54 MAP 59. PATIENT RESP 14 WITH VENT VENTILATING WELL. STAT H&H OBTAINED AND PHENYLEPHRINE 20 MCG/MIN STARTED AT 2130 PER DOCTOR TITUS. PATIENTS HEART RATE WAS DOWN TO 90'S THEN DURING BED BATH AGAIN GOING UP TO 150'S. DESPITE PREMEDICATION WITH DILAUDID. H&H WAS STABLE, AND SUCTIONING LESS AMT OF BLOODY SECRETIONS VIA TRACH.
--- NOTE | 2021-05-24 23:58 | NUR ---
PEG TUBE FLUSHED WITH 20 CC WATER AND CLAMPED. AFIB CONTINUES WITH RATE 120-130'S
--- NOTE | 2021-05-25 04:35 | NUR ---
PATIENT DIAPHORETIC, GLUCOSE 53, 1 AMP D50 GIVEN. AND LABS DRAWN
[2021-05-25 04:40] LABS: BASOPHILS ABSOLUTE AUTO 0.08 K/mm3 (0.00-0.23); BASOPHILS PERCENT AUTO 0 % (0-2); Hematocrit 29.3 % (37.0-53.0); Hemoglobin 9.3 g/dL (13.5-17.5); LYMPHOCYTES ABSOLUTE AUTO 0.76 K/mm3 (0.84-5.20); LYMPHOCYTES PERCENT AUTO 2 % (21-46); MONOCYTES ABSOLUTE AUTO 2.68 K/mm3 (0.16-1.47); MONOCYTES PERCENT AUTO 8 % (4-13); Mean Corpuscular HGB 30.8 pg (26.0-34.0); Mean Corpuscular HGB Conc 31.7 g/dL (31.5-36.5); Mean Corpuscular Volume 97 fL (80-100); Mean Platelet Volume 10.2 fL (9.1-12.4); Platelet Count 294 K/mm3 (150-400); RDW Coefficient Variation 14.8 % (11.7-14.2); Red Blood Cell Count 3.02 M/mm3 (4.30-5.90); White Blood Cell Count 32.37 K/mm3 (4.00-11.30)
[2021-05-25 04:41] LABS: EOSINOPHILS ABSOLUTE AUTO 0.04 K/mm3 (0.00-0.68); EOSINOPHILS PERCENT AUTO 0 % (0-6); IMMATURE GRAN ABSOLUTE AUTO 0.42 K/mm3 (0.00-0.10); IMMATURE GRAN PERCENT AUTO 1 % (0-1); NEUTROPHILS ABSOLUTE AUTO 28.39 K/mm3 (1.96-9.15); NEUTROPHILS PERCENT AUTO 88 % (41-73)
[2021-05-25 05:00] LABS: Anion Gap 2 mmol/L (6-16); Blood Urea Nitrogen 42 mg/dL (8-24); Bun/Creatinine Ratio 51.5 (12.0-20.0); CO2, Blood 33 mmol/L (21-32); Calcium, Blood 8.5 mg/dL (8.5-10.1); Chloride, Blood 104 mmol/L (98-108); Creatinine, Blood 0.82 mg/dL (0.60-1.20); Glomerular Filtration Rate >60 (60-); Glucose, Blood 56 mg/dL (70-99); Potassium, Blood 3.8 mmol/L (3.5-5.5); Sodium, Blood 139 mmol/L (136-145)
--- NOTE | 2021-05-25 07:05 | NUR ---
SUMMARY PATIENT REMAINS SEDATED, AWAKENS EASILY OPENING EYES SPONT, APPEARS TO MAKE EYE CONTACT THIS MORNING. PRECEDEX 1.4 AND PROPOFOL TITRATED TO 40 MCG. TRACH MIDLINE WITH ONLY A SMALL AMT OF OOZING FROM INSERTION SITE. VENT SET AC 14, TV 400, PEEP 8, FIO2 30% SUCTIONING LESS BLOODY SECRETIONS NIGHT PROGRESSED. PEG TUBE TO LEFT UPPER ABD FLUSHED AND CLAMPED AT 2350. SMALL AMT OF BLOODY OOZING AROUND INSERTION SITE. HYPOTENSION CONTINUES PHENYLEPHRINE TITRATED TO 60 MCG, AFIB CONTINUES WITH RATE 90-100'S CARDIZEM DRIP REMAINS OFF DUE TO HYPOTENSION. HYPOGLYCEMIA THIS MORNING D50 GIVEN AND D5W STARTED AT 50 CC/HR LAST GLUCOSE 80. DILAUDID GIVEN FOR PAIN WITH GOOD RESULTS.
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
--- NOTE | 2021-05-25 09:30 | NUR ---
Called Dr Green and got approval to use peg tube and start feedings. gave am meds through peg tube. No changes to vent or gtt settings.
--- NOTE | 2021-05-25 11:43 | NUR ---
Family called and gave update. No changes to vent settings. Trach care done and repositioned. Decreased Antony-synepherine to 50 mcg/min and Precedex to 1.0 mcg/kg/hr r/t to rate. No other changes to Gtt's.
[2021-05-25 13:00] LABS: BASOPHILS ABSOLUTE AUTO 0.09 K/mm3 (0.00-0.23); BASOPHILS PERCENT AUTO 0 % (0-2); EOSINOPHILS ABSOLUTE AUTO 0.07 K/mm3 (0.00-0.68); EOSINOPHILS PERCENT AUTO 0 % (0-6); Hematocrit 29.1 % (37.0-53.0); Hemoglobin 9.4 g/dL (13.5-17.5); IMMATURE GRAN ABSOLUTE AUTO 0.43 K/mm3 (0.00-0.10); IMMATURE GRAN PERCENT AUTO 1 % (0-1); LYMPHOCYTES ABSOLUTE AUTO 1.04 K/mm3 (0.84-5.20); LYMPHOCYTES PERCENT AUTO 3 % (21-46); MONOCYTES ABSOLUTE AUTO 2.08 K/mm3 (0.16-1.47); MONOCYTES PERCENT AUTO 7 % (4-13); Mean Corpuscular HGB 31.2 pg (26.0-34.0); Mean Corpuscular HGB Conc 32.3 g/dL (31.5-36.5); Mean Corpuscular Volume 97 fL (80-100); Mean Platelet Volume 10.3 fL (9.1-12.4); NEUTROPHILS ABSOLUTE AUTO 28.14 K/mm3 (1.96-9.15); NEUTROPHILS PERCENT AUTO 88 % (41-73); Platelet Count 292 K/mm3 (150-400); RDW Coefficient Variation 14.9 % (11.7-14.2); Red Blood Cell Count 3.01 M/mm3 (4.30-5.90); White Blood Cell Count 31.85 K/mm3 (4.00-11.30)
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
--- NOTE | 2021-05-25 15:30 | NUR ---
Dr London in room and making some small adustments to patients settings. AC 14, TV 520, FiO2 30%, PEEP8.0 and sats low 90%'s. Propofol remains at 45 mcg/kg/min, D5 at 50 ml/hr, Precedex at 1.0 mcg/kg/hr, and Antony-synehperine 40 mcg/min and systolic >100 and MAP.65.
--- NOTE | 2021-05-25 19:30 | NUR ---
RECEIVED PATIENT FROM SHAMIKA ROBERTS. DURING REPORT AT BEDSIDE ALEJANDRA TURNED THE NEOSYNEPHRINE TO STANDBY. PT CONTINUES ON THE VENTILATOR VIA TRACH COLLAR, SET AT 14/520/8/30%. HE IS TOLERATING WITH SATS >90%. HE HAS D5 @ 50 RUNNING IN MCKENNA PG, PRECEDEX @ 1MG/KG/MIN, PHENYLEPHRINE @ 15MCG/MIN, PROPOFOL @ 45 MCG/KG PER MIN. PEG TUBE WITH DRAIN SPONGE IN PLACE, C/D/I. LANZA TO GRAVITY DRAINAGE WITH YELLOW RETURN. HE WASN'T TOLERATING NO PHENYLEPHRINE SO IT WAS TURNED BACK ON. LUNGS CLEAR, BUT DIMINISHED IN THE BASES, SUCTION RETURNS WHITE RETURN WITH SOME TINGE OF BLOOD. FACE WOUNDS MOIST AND CLEAN AT THIS TIME. HANDS SWOLLEN/EDEMATOUS, ARMS WELL.
--- NOTE | 2021-05-25 20:30 | NUR ---
PT CONTINUES TO HAVE LOW BLOOD PRESSURES, TITRATING THE NEOSYNEPHRINE TO RESULTS.
--- NOTE | 2021-05-26 00:45 | NUR ---
PT'S HEART RATE AND BLOOD PRESSURE BEING LABILE, TITRATING DOWN THE PROPOFOL AND THE PRECEDEX TO SEE IF IT HELPS. HE ISN'T ANSWERING SIMPLE COMMANDS, REMAINS ONLY RESPONSIVE TO PAIN. WILL CONTINUE TO TITRATE NEEDED.
--- NOTE | 2021-05-26 03:13 | NUR ---
I HAVE BEEN TITRATING DOWN THE SEDATION MEDICATION TO HELP WITH THE BLOOD PRESSURE, ANGELABRAHAM IS RESPONDING TO ME WITH THIS PAST POSITION CHANGE. HE WAS NODDING AND OPENING HIS EYES. I HAVE BEEN SHARING WITH HIM WHAT IS GOING ON WITH HIM AND HIS CARE FOR THE LAST 2 WEEKS, HE ANSWERS YES TO PAIN, SO I MEDICATED HIM. HE IS RESTING AT THIS TIME.
[2021-05-26 04:55] LABS: BASOPHILS ABSOLUTE AUTO 0.04 K/mm3 (0.00-0.23); BASOPHILS PERCENT AUTO 0 % (0-2); EOSINOPHILS ABSOLUTE AUTO 0.11 K/mm3 (0.00-0.68); EOSINOPHILS PERCENT AUTO 1 % (0-6); Hematocrit 26.7 % (37.0-53.0); Hemoglobin 8.6 g/dL (13.5-17.5); IMMATURE GRAN ABSOLUTE AUTO 0.16 K/mm3 (0.00-0.10); IMMATURE GRAN PERCENT AUTO 1 % (0-1); LYMPHOCYTES ABSOLUTE AUTO 0.78 K/mm3 (0.84-5.20); LYMPHOCYTES PERCENT AUTO 4 % (21-46); MONOCYTES ABSOLUTE AUTO 1.13 K/mm3 (0.16-1.47); MONOCYTES PERCENT AUTO 5 % (4-13); Mean Corpuscular HGB 30.9 pg (26.0-34.0); Mean Corpuscular HGB Conc 32.2 g/dL (31.5-36.5); Mean Corpuscular Volume 96 fL (80-100); Mean Platelet Volume 10.1 fL (9.1-12.4); NEUTROPHILS ABSOLUTE AUTO 19.51 K/mm3 (1.96-9.15); NEUTROPHILS PERCENT AUTO 90 % (41-73); Platelet Count 253 K/mm3 (150-400); RDW Coefficient Variation 14.9 % (11.7-14.2); RDW Standard Deviation 52.4 fL (35.1-46.3); Red Blood Cell Count 2.78 M/mm3 (4.30-5.90); White Blood Cell Count 21.73 K/mm3 (4.00-11.30)
[2021-05-26 05:12] LABS: Anion Gap 4 mmol/L (6-16); Blood Urea Nitrogen 38 mg/dL (8-24); Bun/Creatinine Ratio 55.1 (12.0-20.0); CO2, Blood 32 mmol/L (21-32); Calcium, Blood 7.8 mg/dL (8.5-10.1); Chloride, Blood 102 mmol/L (98-108); Creatinine, Blood 0.69 mg/dL (0.60-1.20); Glomerular Filtration Rate >60 (60-); Glucose, Blood 166 mg/dL (70-99); Potassium, Blood 3.4 mmol/L (3.5-5.5); Sodium, Blood 138 mmol/L (136-145)
--- NOTE | 2021-05-26 06:43 | NUR ---
MARIAH HAS BEEN MORE ALERT THIS SHIFT, I HAVE DECREASED HIS PRECEDEX TO 0.7 MCG/KG/MIN, AND PROPOFOL TO 35 MCG/KG/MIN IN AN EFFORT TO HELP INCREASE HIS BLOOD PRESSURE. HIS PHENYLEPHRINE HAS REMAINED @ 30MCG/MIN. HE ANSWERS SLOWLY TO YES/NO QUESTIONS, HE ANSWERS TO PAIN?, HE DOESN'T SEEM TO UNDERSTAND WHERE HE IS OR WHAT HAPPENED, I HAVE BEEN REMINDING HIM THROUGHOUT THE NIGHT. HE CONTINUES ON THE VENT VIA TRACH, SETTINGS UNCHANGED. HE HAS LANZA WITH DECENT OUTPUT, TUBE FEEDING PIVOT 1.5 @ 25ML/HR RESTARTED AT MIDNIGHT PER . HIS ABDOMEN IS SOFT, NON-TENDER, NO BOWEL MOVEMENT THIS SHIFT. LUNGS REMAIN DIMINISHED, WITH GOOD RETURN ON THE SUCTIONING. HE WAS MEDICATED X 2 THIS SHIFT FOR PAIN. WILL REPORT OFF TO NEXT SHIFT WHEN ABLE.
--- NOTE | 2021-05-26 07:40 | NUR ---
PT NODDING "YES" TO PAIN. PROPOFOL @ 25 MCG/KG/MIN. HR 140-160'S AFIB WITH RVR. MEDICATED FOR PAIN BY MARZENA RN-SEE EMAR. HR CONTINUED IN 140-160'S-DR. NOVAK AND DR TITUS UPDATED. CARDIZEM 20 MG IV BOLUS X 1 GIVEN, THEN CARDIZEM DRIP INITIATED @ 5 MG/HR.NEOSYNEPHRINE DRIP CONTINUES @ 20 MCG MIN.
--- NOTE | 2021-05-26 08:00 | NUR ---
PT INCONTINENT OF LARGE, LIQUID STOOL. BED BATH GIVEN AND LINEN CHANGE COMPLETED. WHEN TURNED, AN AIR LEAK WAS NOTED TO TRACH. NO CREPITUS NOTED. RESPIRATORY RATE 30'S, AND PT USING ACCESSORY MUSCLES TO BREATHE. LUNGS DIMINISHED R>L. SHANNAN, RT SUMMONED TO BEDSIDE-VENT CHANGED TO VC+ TO COMPENSATE FOR THE LEAK. DR. TITUS AWARE. CXR DONE. PEEP DECREASED TO 5. PROPOFOL TITRATED UP TO 55MCG/KG/MIN. RESPIRATORY DISTRESS RESOLVED AND MINIMAL AIR LEAK NOTED-TRACH CARE WAS ALSO DONE AT THIS TIME. TRACH WITH LARGE AMOUNT OF OLD DRIED BLOOD AROUND INSERTION SITE. NO SIGNS OF INFECTION. TRACH SUCTION PRODUCTIVE OF A LARGE AMOUNT OF THICK, CORRIGAN SECRETIONS.ECG CONTINUES AFIB WITH RATED 90-120'S ON CARDIZEM @ 10 MG/HR. MAINTAINS MAP>60-65 WITH NEOSYNEPHRINE@ 40 MCG/MIN. PEG TUBE SITE CLEAR-TOLERATING TG @ GOAL. D5 @ 50 DISCONTINUED. PT FACE STILL HAS SCABS AND IS OOZING BLOOD AT TIMES. BACITRACIN OINTMENT APPLIED. UPPER EXTRMITIES REMAIN EDEMATOUS AND LEFT ARM IS WEEPING. ALL EXTREMITES ELEVATED ON PILLOWS. LANZA WITH SMALL AMOUNT OF DARK, YELLOW URINE TO BSD-POTASSIUM REPLETION IS COMPLETE.
--- NOTE | 2021-05-26 10:45 | NUR ---
PT PLACE ON PS [address] TITUS. TV'S 500'S. NO NOTED RESPIRATORY DISTRESS.
--- NOTE | 2021-05-26 10:56 | NUR ---
Echocardiogram completed.
--- NOTE | 2021-05-26 12:30 | NUR ---
PT REMAINS ON PS 10-NO NOTED RESPIRATORY DISTRESS. SATS>90% HR 60-90'S-CARDIZEM DRIP ON SB AFTER FIRST DOSE OF METOPROLOL GIVEN PER TUBE. NEOSYNEPHRINE DRIP CONTINUES @ 40 MCG/MIN. MAP >60-65.
--- NOTE | 2021-05-26 15:50 | NUR ---
PS REDUCED TO [address] TITUS.
--- NOTE | 2021-05-26 16:15 | NUR ---
RESPIRATORY RATE 32-38 TV 320'S-PT UTILIZING ACCESSORY MUSCLES TO BREATHE. VENT RETURNED TO AC 14, TV 520, PEEP 5, FIO2 30%. PT CONTINUES TO HAVE A LARGE AMOUNT OF THICK, CORRIGAN SECRETIONS-SPUTUM SENT. PROPOFOL TITRATED UP TO 55 MCG/KG/MIN UNTIL RR 20'S-APROXIMATELY 10 MINUTES, THEN TITRATED BACK DOWN TO 45 MCG/KG/MIN. PRECEDEX CONTINUES @ 0.7 MCG/KG/MIN. HR 60-90'S AFLUTTER. MAINTAINS MAP 60-65 WITH NEOSYNEPHRINE @ 40 MCG/MIN. DILTIAZEM REMAINS ON SB. PEG TUBE SITE CLEAR, TOLERATING TF WELL.
--- NOTE | 2021-05-26 19:30 | NUR ---
PT RECEIVED FROM SHAMIKA SCHAEFFER. PT ON VENTILATOR AC 14/520/5/30%, TOLERATING WELL. PROPOFOL @ 45MCG/KG/MIN, PRECEDEX @ 0.7MCG/KG/HR, NEOSYNEPHRINE @ 40MCG/MIN, NS @ TKO, PIVOT TF @ 25ML/HR VIA PEG TUBE, LANZA TO GRAVITY DRAINAGE, YELLOW RETURN WITH SOME WHITE SEDIMENT. FACIAL WOUNDS MOIST, ESCHAR PRESENT, BLEEDING AT TIMES EVIDENT. ABDOMEN DISTENDED, SOFT, BOWEL TONES PRESENT, SKIN COOL, HANDS EDEMATOUS AND UPPER EXTREMITIES. POWER GLIDE MCKENNA, PICC IN LEIGH ANN.
--- NOTE | 2021-05-26 22:29 | NUR ---
MARIAH WAS TURNED AND REPOSITIONED, HE BECAME INCREASINGLY SHORT OF BREATH, HEART RATE INCREASED AND HIS LUNG SOUNDS WERE TIGHT AND WHEEZING. R/T CALLED, BREATHING TREATMENT STARTED AND PAIN MEDICATION GIVEN. WITH THE COUGHING PT'S FACE BEGAN OOZING FROM THE FACIAL WOUNDS FROM HIS LOVETT. R/T PUT HIM ON SPONTANEOUS 10 WITH PEEP OF 5, 30%.
--- NOTE | 2021-05-27 03:10 | NUR ---
MARIAH WAS TURNED AND REPOSITIONED, HE WENT IN TO HIS AFLUTTER WITH RVR, HIS CARDIZEM WAS RESTARTED @ 10MG/HR, HE WAS INCONTINENT OF A LARGE AMOUNT OF LIQUID STOOL, IT KEPT COMING, SO A DIGNISHIELD WAS PLACED. HE WAS NOTED TO HAVE EXCORIATION ON HIS SCROTUM WITH BLEEDING FROM THE STOOL. HE CONTINUED TO HAVE RVR SO THE DILTIAZEM WAS INCREASED TO 15MG/HR. HE CONTINUED WITH RAPID BREATHING AND THE OVERALL APPEARANCE OF DISCOMFORT, SO HE WAS GIVEN DILAUDID WELL. CONTINUEING TO WATCH HIM, HE IS STILL ON SPONTANEOUS AT 10 PEEP OF 5 AND 30% FIO2. HEART RATE IS COMING DOWN TO THE 120'S. WILL TITRATE THE CARDIZEM IT CONTINUES TO DECREASE.
[2021-05-27 04:02] LABS: BASOPHILS ABSOLUTE AUTO 0.02 K/mm3 (0.00-0.23); BASOPHILS PERCENT AUTO 0 % (0-2); EOSINOPHILS ABSOLUTE AUTO 0.15 K/mm3 (0.00-0.68); EOSINOPHILS PERCENT AUTO 1 % (0-6); Hematocrit 26.1 % (37.0-53.0); Hemoglobin 8.1 g/dL (13.5-17.5); IMMATURE GRAN PERCENT AUTO 1 % (0-1); LYMPHOCYTES ABSOLUTE AUTO 0.65 K/mm3 (0.84-5.20); LYMPHOCYTES PERCENT AUTO 5 % (21-46); MONOCYTES ABSOLUTE AUTO 0.78 K/mm3 (0.16-1.47); MONOCYTES PERCENT AUTO 6 % (4-13); Mean Corpuscular HGB 30.2 pg (26.0-34.0); Mean Corpuscular Volume 97 fL (80-100); Mean Platelet Volume 10.1 fL (9.1-12.4); NEUTROPHILS ABSOLUTE AUTO 11.32 K/mm3 (1.96-9.15); NEUTROPHILS PERCENT AUTO 87 % (41-73); Platelet Count 237 K/mm3 (150-400); RDW Coefficient Variation 14.9 % (11.7-14.2); RDW Standard Deviation 53.9 fL (35.1-46.3); Red Blood Cell Count 2.68 M/mm3 (4.30-5.90); White Blood Cell Count 13.02 K/mm3 (4.00-11.30)
[2021-05-27 04:11] LABS: Anion Gap 2 mmol/L (6-16); Blood Urea Nitrogen 39 mg/dL (8-24); Bun/Creatinine Ratio 58.2 (12.0-20.0); CO2, Blood 32 mmol/L (21-32); Calcium, Blood 8.1 mg/dL (8.5-10.1); Chloride, Blood 106 mmol/L (98-108); Creatinine, Blood 0.67 mg/dL (0.60-1.20); Glomerular Filtration Rate >60 (60-); Glucose, Blood 124 mg/dL (70-99); Magnesium, Blood 1.9 mg/dL (1.6-2.4); Potassium, Blood 3.8 mmol/L (3.5-5.5); Sodium, Blood 140 mmol/L (136-145)
--- NOTE | 2021-05-27 05:24 | NUR ---
DINNY RESTING MORE COMFORTABLY, THE DILTIAZEM IS ON STANDBY, BLOOD PRESSURES SYSTOLIC IN THE 90'S. CONTINUES ON SPONTANEOUS MODE ON THE VENTILATOR. PS 10.
--- NOTE | 2021-05-27 08:00 | NUR ---
PT REMAINS ON VENT, SEDATED, AND RESTRAINED. PT OPENS EYES TO VOICE AND NODS "YES" TO PAIN ON PROPOFOL @ 40 MCG/KG/MIN AND PRECEDEX @ 0.7 MCG/KG/MIN-MED WITH DILAUDID 1 MG IVPX1 FOR PAIN. PT WOULD NOT MEDICAL INSURANCE CODING SPECIALIST OR WIGGLE TOES TO COMMAND, BUT DOES OPEN HIS MOUTH TO COMMAND TO ALLOW FOR ORAL CARE. ECG CONTINUES AFLUTTER WITH RATE 90'S. NEOSYNEPHRINE CONTINUES @ 40 MCG/MIN TO KEEP MAP 60-65. EDEMA HAS IMPROVED FROM 7/8 ASSESSMENT. EXTREMITES REMAIN ELEVATED ON PILLOWS. TRACH SUTURES INTACT-SMALL AMOUNT OF SANGIUNOUS DRAINAGE NOTED. FEWER, THICK, CORRIGAN SECRETIONS WITH BOTH ORAL AND TRACH SUCTION. LUNGS REMAIN DIMINISHED IN THE BASES R>L, BUT OVERALL BETTER AIR EXCHANGE THAN 7/8 ASSESSMENT. MAINTAINS SATS>90% ON VC+ I TIME 0.85-PER SHANNAN RT. RATE 14, TV 520, PEEP 5, FIO2 30%. PEG TUBE WITH SMALL AMOUNT OF SEROUS DRAINAGE-GENTLY CLEANSED WITH WOUND CLEANSER AND NEW DRAIN SPONGE APPLIED. RECTAL TUBE WITH MODERATE AMOUNT OF BROWN, LIQUID STOOL. STOOL SOFTENERS HELD THIS AM.
--- NOTE | 2021-05-27 10:00 | NUR ---
PT PLACED ON PS 8, PEEP 5, FIO2 30% TOLERATING WELL. DR. LOERA IN TO EVALUATED PT. UPDATED TO CURRENT VS AND STATUS.
--- NOTE | 2021-05-27 11:22 | NUR ---
PROPOFOL TITRATED DOWN TO 20 MCG/KG/MIN PER DR. EVARISTO Ching. "LET'S WAKE HIME UP AND SEE WHAT HAPPENS." GOAL TO ATTEMPT TRACH COLLAR AND POSSIBLY OOB TO CHAIR LATER TODAY.
--- NOTE | 2021-05-27 13:41 | NUR ---
1200:PT ASSISTED OOB TO CHAIR USING CEILING LIFT. PT ON PROPOFOL @ 20 MCG/KG/MIN. LUIS MARQUEZ COMMAND-ROM DONE WHILE PT UP IN CHAIR-TOLERATED WELL. LUNGS TIGHT AND WZ, BUT PT MAINTAINING SATS>90% ON PS 8. SBP 110'S WITH NEOPSYNEPHRINE @ 20 MCG/MIN. 1300:PT RR 30'S, TV'S 300'S, LABORING TO BREATHE AND USING ACCESSORY MUSCLES TO BREATH. PROPOFOL TITRATED UP TO 30 MCG/KG/MIN. ALSO, HR 140'S AFIB-DR. LOERA AWARE OF INCREASED HR AND THAT PT LABORING TO BREATHE. CARDIZEM DRIP RESTARTED @ 5 MG/HR. 1315: PT CONTINUES TO LABOR TO BREATHE. PULLING ON RESTRAINTS. PT NODS "YES" TO PAIN. MED WITH DILAUDID 1 MG IVP. TITRATED PROPOFOL DRIP UP TO 55MCG/KGMIN. PRECEDEX HAS REMAINED @ 0.7 MCG/KG/MIN. SBP 130'S-NEOSYNEPRINE DRIP ON SB. PT RETURNED TO AC 14, TV 520, PEEP 5, FIO2 30% ASSISTED BACK TO BED USING CEILING LIFT AND POSITIONED TO COMFORT ON LEFT SIDE.
--- NOTE | 2021-05-27 18:12 | NUR ---
PT HAS BEEN RESTING QUIETLY ON THE VENT SINCE ABOUT 1330-PROPOFOL @ 45 MCG/KG/MIN AND PRECEDEX @ 0.7 MCG/KG/MIN. HR DOWN TO 30'S BRIEFLY. THEREFORE, CARDIZEM DRIP PLACED ON STANDBY. MAP TRENDING 60-65 WITH NEOSYNEPHRINE @ 40 MCG/MIN. PEG TF CHANGED TO VHP PER DIETARY ORDERS. RECTAL TUBE CONTINUES WITH MODERATE AMOUNT OF BROWN, LIQUID STOOL. PT DAUGHTER February FOR VISIT-UPDATED TO CURRENT STATUS AND PLAN OF CARE.
[2021-05-28 05:44] LABS: BASOPHILS ABSOLUTE AUTO 0.03 K/mm3 (0.00-0.23); BASOPHILS PERCENT AUTO 0 % (0-2); EOSINOPHILS PERCENT AUTO 2 % (0-6); Hematocrit 28.3 % (37.0-53.0); Hemoglobin 8.9 g/dL (13.5-17.5); IMMATURE GRAN ABSOLUTE AUTO 0.07 K/mm3 (0.00-0.10); IMMATURE GRAN PERCENT AUTO 1 % (0-1); LYMPHOCYTES ABSOLUTE AUTO 0.81 K/mm3 (0.84-5.20); LYMPHOCYTES PERCENT AUTO 9 % (21-46); MONOCYTES ABSOLUTE AUTO 0.65 K/mm3 (0.16-1.47); MONOCYTES PERCENT AUTO 7 % (4-13); Mean Corpuscular HGB 30.3 pg (26.0-34.0); Mean Corpuscular HGB Conc 31.4 g/dL (31.5-36.5); Mean Corpuscular Volume 96 fL (80-100); NEUTROPHILS ABSOLUTE AUTO 7.24 K/mm3 (1.96-9.15); NEUTROPHILS PERCENT AUTO 81 % (41-73); Platelet Count 277 K/mm3 (150-400); Red Blood Cell Count 2.94 M/mm3 (4.30-5.90)
[2021-05-28 05:59] LABS: Anion Gap 3 mmol/L (6-16); Blood Urea Nitrogen 30 mg/dL (8-24); Bun/Creatinine Ratio 50.4 (12.0-20.0); CO2, Blood 32 mmol/L (21-32); Calcium, Blood 8.4 mg/dL (8.5-10.1); Chloride, Blood 107 mmol/L (98-108); Glomerular Filtration Rate >60 (60-); Glucose, Blood 105 mg/dL (70-99); Potassium, Blood 3.6 mmol/L (3.5-5.5); Sodium, Blood 142 mmol/L (136-145)
--- NOTE | 2021-05-28 06:17 | NUR ---
SUMMARY: MARIAH HAS SLEPT THROUGHOUT THE SHIFT. HE REMAINS ON AC /5/30%. MEDICATED WITH HYDROMORPHONE 1MG X 2. CARDIZEM REMAINS OFF, PROPOFOL @ 30MCG/KG/HR, DMITRIY @ 30 MCG/MIN, PRECEDEX @ 0.7 MCG/KG/HR. VITAL HIGH PROTEIN INFUSING @ 45ML/HR, LANZA TO GRAVITY, RECTAL TUBE TO GRAVITY WELL. CHEM BG'S HAVE BEEN <100, NO COVERAGE INDICATED. NORMOTHERMIC.
--- NOTE | 2021-05-28 07:15 | NUR ---
Assumed care of pt at 0700. Bedside report received from Vannessa WICK. Pt sedated with propofol at 30 mcg/kg/min and precedex at 0.7 mcg/kg/hr. Pt responsive to painful stimulus. Cough and gag present. Moderate amount of thick yellow, pink sputum suctioned from trach. Pt on ventilator ACVC+ 14/520/5/30%. Lungs clear t/o, but tight in bases. Pt getting tube feeds, Vital HP at rate of 45 mL/hr with 30 mL flush Q4H. 0 mL residual measured. Hypoactive BT. Pt has rectal tube with pasty brown output. Alvarez catheter draining clear, yellow urine. Atrial flutter per monitor, rate 90s per monitor. BP stable with 30 mcg/min neosynephrine.
--- NOTE | 2021-05-28 08:45 | NUR ---
At 0803, propofol turned off. Pt changed to spontaneous mode with PS 15/10 and 30% FiO2 per Dr Caraballo at 0823. Between these times, pt's HR increased to 150s-180s, still atrial flutter. BP higher. Per Dr Caraballo, HR and BP treated with metoprolol. Working on titrating neosynephrine down as patient has been hypertensive after removing sedation.
--- NOTE | 2021-05-28 10:30 | NUR ---
Pt has remained tachycardic for greater portion of last two hours. Not responsive to metoprolol IV or PT. Pt appeared visibly uncomfortable. Discussed medicating pt for pain with Dr Caraballo. Dilaudid given. After pt received dilaudid, pt was triggering apnea alarm on ventilator. SpO2 did not drop below 90%. Per Dr Caraballo, pt changed back to full support and sedation restarted. Plan to reattempt sedation interruption and SBT this afternoon.
--- NOTE | 2021-05-28 14:51 | NUR ---
Wound care done per orders, bacitracin ointment applied. Pt's son, Yifan called for update. Update provided.
--- NOTE | 2021-05-28 16:26 | NUR ---
review of pt with with nursing. Will follow with family goal is rehab and some quality time interacting with family.
--- NOTE | 2021-05-28 18:28 | NUR ---
SUMMARY Pt is receiving 25 mcg/kg/min propofol and 0.7 mcg/kg/hr precedex. Pt's BP is sensitive to sedation and pain medicine, therefore neosynephrine has been titrated between 10 mcg/min and 50 mcg/min. At this time, neosynephrine is 30 mcg/min. BP stable. Pt is atrial flutter with HR 115-116. Tube feed and flushes per orders. Rectal tube remains in place. Draining large amount of stool. Some leakage noted from insertion site. Barrier cream to perianal area. Ventilator settings ACVC+ 14/520/5/40%. SpO2 90% or greater. Excellent urine output from kenney.
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
[2021-05-29 03:18] LABS: BASOPHILS ABSOLUTE AUTO 0.04 K/mm3 (0.00-0.23); BASOPHILS PERCENT AUTO 0 % (0-2); EOSINOPHILS ABSOLUTE AUTO 0.22 K/mm3 (0.00-0.68); EOSINOPHILS PERCENT AUTO 3 % (0-6); Hematocrit 26.7 % (37.0-53.0); Hemoglobin 8.4 g/dL (13.5-17.5); IMMATURE GRAN ABSOLUTE AUTO 0.06 K/mm3 (0.00-0.10); IMMATURE GRAN PERCENT AUTO 1 % (0-1); LYMPHOCYTES ABSOLUTE AUTO 0.97 K/mm3 (0.84-5.20); LYMPHOCYTES PERCENT AUTO 11 % (21-46); MONOCYTES ABSOLUTE AUTO 0.71 K/mm3 (0.16-1.47); MONOCYTES PERCENT AUTO 8 % (4-13); Mean Corpuscular HGB 30.5 pg (26.0-34.0); Mean Corpuscular HGB Conc 31.5 g/dL (31.5-36.5); Mean Corpuscular Volume 97 fL (80-100); Mean Platelet Volume 9.9 fL (9.1-12.4); NEUTROPHILS ABSOLUTE AUTO 6.94 K/mm3 (1.96-9.15); NEUTROPHILS PERCENT AUTO 78 % (41-73); Platelet Count 256 K/mm3 (150-400); RDW Coefficient Variation 15.1 % (11.7-14.2); RDW Standard Deviation 53.7 fL (35.1-46.3); Red Blood Cell Count 2.75 M/mm3 (4.30-5.90); White Blood Cell Count 8.94 K/mm3 (4.00-11.30)
[2021-05-29 03:33] LABS: Anion Gap 3 mmol/L (6-16); Blood Urea Nitrogen 27 mg/dL (8-24); Bun/Creatinine Ratio 45.2 (12.0-20.0); CO2, Blood 32 mmol/L (21-32); Calcium, Blood 8.3 mg/dL (8.5-10.1); Chloride, Blood 108 mmol/L (98-108); Glomerular Filtration Rate >60 (60-); Glucose, Blood 145 mg/dL (70-99); Magnesium, Blood 1.9 mg/dL (1.6-2.4); Phosphorus, Blood 2.8 mg/dL (2.5-4.9); Potassium, Blood 3.4 mmol/L (3.5-5.5); Sodium, Blood 143 mmol/L (136-145)
--- NOTE | 2021-05-29 06:11 | NUR ---
SHIFT SUMMARY VENT SETTINGS ACVC+ 14/520/5/30%, SPO2 >90%. VSS. AFLUTTER ON MONITOR HR 80-90'S, SBP STABLE WITH MAP >65. 25 MCG/HR CONTINUOUS FENTANYL DRIP STARTED THIS SHIFT FOR PAIN CONTROL, PRN FENTANYL PUSHES GIVEN PER EMAR. PROPOFOL INFUSING AT 40 MCG/KG/MIN, PRECEDEX AT 0.7 MCG/KG/HR AND DMITRIY AT 30 MCG/MIN. RECTAL TUBE AND LANZA DRAINING TO GRAVITY. PT RESPONDS TO PAINFUL STIMULI, NOT FOLLOWING COMMANDS AT THIS TIME.
--- NOTE | 2021-05-29 09:47 | NUR ---
CARE ASSUMED ASSESSMENTS COMPLETED. PT SEDATED WITH PROPOFOL 40MCG, PRECEDEX 0.7MCG, FENTANYL ASH KIER BOILER 25MCG. MECHANICALLY VENTILLATED VIA TRACH WITH SETTINGS AC/VC+ 14, Vt 520, PEEP 5, FIO2 30%. RR 20-22, SPO2 >95%. LS WHEEZY AND COARSE, MODERATE YELLOW SPUTUM FROM TRACH. HR 90'S AFLUTTER, BP STABLE. ABD DISTENDED, FIRM, PEG TUBE PRESENT, SECURED, VHP INFUSING AT 45ML/HR. LANZA SECURED, PATENT AND DRAINING. EXTREMS ELEVATED, PT HAS GENERALIZED PITTING EDEMA. FOOT DROP PREVENTION BOOTS IN PLACE. LOVETT TO FACE HEALING, CLEANED WITH WARM WATER, BACITRACIN APPLIED. SEDATION VACATION AT 0950, PT QUICKLY BECAME TACHYPNEIC RR 38, TACHYCARDIC HR 160'S. PT WAS ABLE TO OPEN EYES AND SQUEEZE FINGERS TO COMMAND, SMITH. PT COUGHING FREQUENTLY, PINK/YELLOW TRACH SECRETIONS SUCTIONED, SPO2 DECREASED TO 80'S, Vt 200. PT RESEDATED, VS NORMALIZED. Vt REMAIN 200'S, MINUTE VOLUME 7-8L, RT NOTIFIED.
--- NOTE | 2021-05-29 14:29 | NUR ---
UPDATE AFTER SEDATION VACATION, PT CONTINUED TO HAVE LOW TIDAL VOLUMES, FENTANYL ADMINISTERED WITH GOOD RESULTS, PT TOLERATED VENT WELL AFTER FENTANYL IVP, DID NOT REQUIRE VENT CHANGES. Vt 400'S, SECRETIONS BLOODY SINCE PT WAS COUGHING. PROPOFOL, PRECEDEX, AND PHENYLEPHRINE RATES UNCHANGED. HR 80-90'S, BP STABLE, WILL ATTEMPT TO TITRATE PHENYLEPHRINE DOWN ABLE.
--- NOTE | 2021-05-29 18:29 | NUR ---
END OF SHIFT PT HAD UNEVENTFUL AFTERNOON, REMAINED INTUBATED/SEDATED. VENT SETTINGS UNCHANGED, RR 22, SPO2 98%, Vt 250-450. LS WHEEZY THIS SHIFT, COARSE AT TIMES BUT CLEARED WITH SUCTIONING, BLOOD HAS CLEARED FROM TRACH SECRETIONS THIS EVENING. PROPOFOL 40MCG, PRECEDEX 0.7MCG, FENTANYL MACHINE LONG GOODS HELPER 25MCG, 3 ADDITIONAL DOSES OF IVP FENTANYL TODAY FOR GRIMACING/COUGHING/LOW TIDAL VOLUMES, RESPONDED WELL. ATTEMPTED TO TITRATE PHENYLEPHRINE DOWN TODAY WITH LITTLE SUCCESS, CURRENTLY 25MCG. HR 90'S A FLUTTER, MAP >65. PEG TUBE HEALING WELL, SCANT SS SECRETIONS FROM INSERTION SITE, TOLERATING TF WELL. WOUND CARE TO FACE TWICE THIS SHIFT PER ORDERS, TRACH CARE AND PEG CARE COMPLETED. INNER TRACH CANNULA CHANGED THIS EVENING BY RT. LIMBS ELEVATED, FOOT DROP PREVENTION BOOTS IN PLACE BILAT. GOOD URINE OUTPUT THIS SHIFT, 200ML STOOL FROM RECTAL TUBE, STOOL REMAINS LIQUID. SKIN TO BACKSIDE INTACT, CALMOSEPTINE TO JEANIE AREA. SISTER UPDATED, DAUGHTER AT BEDSIDE TO SEE PT, ALSO UPDATED.
--- NOTE | 2021-05-29 20:10 | NUR ---
ASSUMED CARE REPORT RECEIVED FROM SHAMIKA WINSTON. PT TRACHED ON VENT, SETTINGS ACVC+ 14/520/5/30%. HR 90-115'S, DMITRIY TITRATED TO MAINTAIN MAP >65, SPO2 98%. PT CURRENTLY HAS INFUSING PROPOFOL AT 40 MCG/KG/MIN, PRECEDEX AT 0.7 MCG/KG/HR, DMITRIY AT 40 MCG/KG/MIN, AND FENTANYL ADJUNCT PSYCHOLOGY FACULTY MEMBER WITH 25 MCG/HR CONTINUOUS. TF VHP RUNNING AT GOAL RATE OF 45 ML/HR WITH 30 Q4H WATER FLUSHES. LANZA AND RECTAL TUBE DRAINING TO GRAVITY. BILATERAL UPPER EXTREMITIES FLOATED ON PILLOWS TO HELP WITH EDEMA, BILATERAL FEET IN HEEL BOOTS. LUNGS CLEAR/DIMINISHED BASES, ABD FIRM. PEG TUBE CLEAN/INTACT.
[2021-05-30 04:04] LABS: BASOPHILS ABSOLUTE AUTO 0.04 K/mm3 (0.00-0.23); BASOPHILS PERCENT AUTO 1 % (0-2); EOSINOPHILS ABSOLUTE AUTO 0.25 K/mm3 (0.00-0.68); EOSINOPHILS PERCENT AUTO 3 % (0-6); Hematocrit 26.6 % (37.0-53.0); Hemoglobin 8.3 g/dL (13.5-17.5); IMMATURE GRAN ABSOLUTE AUTO 0.04 K/mm3 (0.00-0.10); IMMATURE GRAN PERCENT AUTO 1 % (0-1); LYMPHOCYTES ABSOLUTE AUTO 0.86 K/mm3 (0.84-5.20); LYMPHOCYTES PERCENT AUTO 10 % (21-46); MONOCYTES ABSOLUTE AUTO 0.59 K/mm3 (0.16-1.47); MONOCYTES PERCENT AUTO 7 % (4-13); Mean Corpuscular HGB Conc 31.2 g/dL (31.5-36.5); Mean Corpuscular Volume 96 fL (80-100); Mean Platelet Volume 9.7 fL (9.1-12.4); NEUTROPHILS ABSOLUTE AUTO 6.67 K/mm3 (1.96-9.15); NEUTROPHILS PERCENT AUTO 79 % (41-73); Platelet Count 261 K/mm3 (150-400); RDW Coefficient Variation 15.1 % (11.7-14.2); RDW Standard Deviation 53.2 fL (35.1-46.3); Red Blood Cell Count 2.77 M/mm3 (4.30-5.90); White Blood Cell Count 8.45 K/mm3 (4.00-11.30)
[2021-05-30 04:23] LABS: Anion Gap 1 mmol/L (6-16); Blood Urea Nitrogen 25 mg/dL (8-24); Bun/Creatinine Ratio 41.5 (12.0-20.0); CO2, Blood 33 mmol/L (21-32); Calcium, Blood 8.3 mg/dL (8.5-10.1); Chloride, Blood 108 mmol/L (98-108); Glomerular Filtration Rate >60 (60-); Glucose, Blood 158 mg/dL (70-99); Magnesium, Blood 1.8 mg/dL (1.6-2.4); Phosphorus, Blood 2.9 mg/dL (2.5-4.9); Potassium, Blood 3.6 mmol/L (3.5-5.5); Sodium, Blood 142 mmol/L (136-145)
--- NOTE | 2021-05-30 06:23 | NUR ---
SHIFT SUMMARY PT REMAINS ON VENT VIA TRACH, SETTINGS ACVC+ 14/520/5/30%. MODERATE AMOUNT OF THICK CORRIGAN SECRETIONS SUCTIONS FROM TRACH THIS SHIFT. DMITRIY TITRATED TO MAINTAIN MAP >65, CURRENTLY INFUSING AT 25 MCG/KG/MIN. PROPOFOL INFUSING AT 40 MCG/KG/MIN AND PRECEDEX AT 0.7 MCG/KG/HR. TF RUNNING AT 45 ML/HR WITH MINIMAL RESIDUALS. PILLOWS USED TO ELEVATE EXTREMITIES TO DECREASE EDEMA. FENTANYL MANAGER HEART WITH 25 MCG/HR CONTINUOUS RATE CONTINUES TO INFUSE, 4 ADDITIONAL PRN FENTANYL DOSES GIVEN FOR PAIN/GRIMACING. WOUND CARE DONE ONCE DURING THIS SHIFT.
--- NOTE | 2021-05-30 08:11 | NUR ---
CARE ASSUMED ASSESSMENTS COMPLETED. PT REMAINS INTUBATED, VENT AC/VC+ 14, Vt 520, PEEP 5, FIO2 30%. RR 27, Vt 200'S, SPO2 98%, RESPIRATIONS APPEAR LABORED WITH ACCESSORY MUSCLE USE. PT MEDICATED WITH FENTANYL 50MCG, Vt INCREASED TO 400'S, RESPIRATIONS NO LONGER LABORED. PT SEDATED WITH PROPOFOL 40MCG, PRECEDEX 0.7MCG, AND FENTANYL NIGHT TIME BABYSITTER 25MCG, DOES NOT FOLLOW DIRECTION. GRIMACES DURING CARES, LUIS. CARDIAC RHYTHM CONVERTED TO NSR THIS AM AT 0619, REMAINS SINUS 80'S. BP HYPOTENSIVE WITH MAP <65, DMITRIY INCREASED TO 40MCG, MAP NOW 70'S, METOPROLOL HELD. ABD FIRM, PEG TUBE IN PLACE, DRESSING CDI, TF INFUSING, RECTAL TUBE WITH BROWN LIQUID OUTPUT. LANZA PATENT AND DRAINING, URINE OUTPUT ADEQUATE. EXTREMS ELEVATED, FOOT DROP PREVENTION BOOTS IN PLACE. AM CARES AND FACIAL WOUND CARE COMPLETED PER ORDERS.
--- NOTE | 2021-05-30 09:36 | NUR ---
PT BECAME TACHYPNEIC AGAIN WITH SHALLOW LABORED BREATHS, DR. FOOTE AND RAMEZ RT AT BEDSIDE. PRECEDEX INCREASED TO 1MCG, FENTANYL 50MCG IVP ADMINISTERED. LARGE AMOUNT OF SECRETIONS SUCTIONED FROME TT, VENT SETTINGS CHANGED BY DR. FOOTE TO ACVC+ 14, Vt 350, PEEP 5, FIO2 40%. RESPIRATIONS APPEAR LESS LABORED BUT NOT RELAXED. VT NOW 350-400, RR HIGH 20'S, SPO2 LOW 90'S. LS WHEEZY T/O. WILL ADMINISTER LASIX WHEN AVAILABLE.
--- NOTE | 2021-05-30 11:03 | NUR ---
SHIRA 1033 HR BRIEFLY DROPPED TO 40'S, THEN SPONTANEOUSLY RECOVERED TO 80'S, ATROPINE 1MG ADMINISTERED TO PREVENT RECURRANCE, DEFIBRILLATOR PADS PLACED AT 1036. BP BECAME HYPOTENSIVE, SBP 70'S, DMITRIY INCREASED TO 100, PRECEDEX DECREASED TO 0.4. BP RECOVERED, DMITRIY NOW AT 75MCG. EKG COMPLETED, PT REMAINS IN SINUS RHYTHM, NEW R BBB PRESENT. 50MEQ BICARB ADMINISTERED. HR 80'S, BP STABLE, PT HAD ONE INSTANCE OF 2 CONCURRENT PVC'S AFTER ATROPINE, DEFIB PADS REMAIN IN PLACE. PALLIATIVE CARE RN ESTEVAN IN CONTACT WITH PT'S FAMILY REGARDING CODE STATUS.
--- NOTE | 2021-05-30 11:16 | NUR ---
ATROPINE 1MG IVP 1035 BICARB 50MEQ IVP 1044
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
--- NOTE | 2021-05-30 18:26 | NUR ---
pt son called again for update asked that i tell his father they love him. updated him on his condition.
--- NOTE | 2021-05-30 19:09 | NUR ---
END OF SHIFT PT HAD NO OTHER EPISODES OF BRADYCARDIA THIS SHIFT. BP REMAINED LABILE, DMITRIY AND SEDATION TITRATED UP AND DOWN TO KEEP BP STABLE. DMITRIY 50MCG, PROPOFOL 40MCG, PRECEDEX 0.7MCG, FENTANYL AIRCRAFT DESIGNER 25MCG. VENT ACVC+ 14, Vt 350, PEEP 5, FIO2 30%. THIS EVENING, PT BECAME DIAPHORETIC, TACHYPNEIC, HR UP TO 100, Vt 200'S. LS TIGHT WITH MINIMAL AIR MOVEMENT, FAINT WHEEZES PRESENT. RT NOTIFIED, NEB TREATMENT GIVEN. PT REMAINED DIAPHORETIC AND TACHYPNEIC, HR 100 AFTER NEB, PRECECDEX INCREASED AND PROPOFOL ADMINISTERED. PT AFEBRILE BUT WARM TO TOUCH, ICE PACKS PLACED. PT THEN CALMED, DIAPHORESIS AND TACHYPNEA RESOLVED, HR 70'S SINUS, BP STABLE. GOOD OUTPUT WITH LASIX, NO CHANGE NOTED IN PERIPHERAL EDEMA YET. NEURO STATUS UNCHANGED. LOVETT TO FACE HEALING WELL. PT'S FAMILY SPOKEN TO BY ESTEVAN PALLIATIVE RN, NO CHANGES IN PLAN OF CARE OR CODE STATUS UNTIL PT'S SON ARRIVES, UNKNOWN WHEN THIS WILL HAPPEN. PT REMAINS FULL CODE.
--- NOTE | 2021-05-30 19:30 | NUR ---
RECEIVED PATIENT FROM SHAMIKA WINSTON. ON VENTILATOR AC/VC+ 14/350/30. TRACH C/D/I VITAL HIGH PROTEIN INFUSING AT 45ML/HR, <30ML RESIDUAL. PROPOFOL @ 40MCG/KG/MIN, NEOSYNEPHRINE @ 50MCG/MIN, PRECEDEX @ 0.7 MCG/KG/HR. FENTANYL @ 25 MCG/HR. TKO X 2. POWERGLIDE IN MCKENNA/PICC IN LEIGH ANN, LANZA IN PLACE WITH SOME DISCHARGE AT THE MEATUS, RECTAL TUBE IN PLACE DRAINING BROWN/GREEN RETURN. TOELRATES MEDS THROUGH PEG TUBE. PT MEDICATED FOR PAIN.
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
[2021-05-31 04:05] LABS: BASOPHILS ABSOLUTE AUTO 0.03 K/mm3 (0.00-0.23); BASOPHILS PERCENT AUTO 0 % (0-2); EOSINOPHILS ABSOLUTE AUTO 0.25 K/mm3 (0.00-0.68); EOSINOPHILS PERCENT AUTO 3 % (0-6); Hemoglobin 7.2 g/dL (13.5-17.5); IMMATURE GRAN ABSOLUTE AUTO 0.09 K/mm3 (0.00-0.10); IMMATURE GRAN PERCENT AUTO 1 % (0-1); LYMPHOCYTES ABSOLUTE AUTO 0.86 K/mm3 (0.84-5.20); LYMPHOCYTES PERCENT AUTO 11 % (21-46); MONOCYTES ABSOLUTE AUTO 0.61 K/mm3 (0.16-1.47); MONOCYTES PERCENT AUTO 8 % (4-13); Mean Corpuscular HGB 30.4 pg (26.0-34.0); Mean Corpuscular HGB Conc 31.3 g/dL (31.5-36.5); Mean Corpuscular Volume 97 fL (80-100); Mean Platelet Volume 9.8 fL (9.1-12.4); NEUTROPHILS ABSOLUTE AUTO 5.68 K/mm3 (1.96-9.15); NEUTROPHILS PERCENT AUTO 76 % (41-73); Platelet Count 290 K/mm3 (150-400); RDW Coefficient Variation 15.7 % (11.7-14.2); RDW Standard Deviation 56.2 fL (35.1-46.3); Red Blood Cell Count 2.37 M/mm3 (4.30-5.90); White Blood Cell Count 7.52 K/mm3 (4.00-11.30)
[2021-05-31 04:07] LABS: Base Excess Venous 10.5 mmol/L; PCO2 Venous 66.2 mmHg (38-42); PO2 Venous 65.7 mmHg (38-42); pH Blood Venous 7.35 (7.34-7.37)
[2021-05-31 04:19] LABS: Anion Gap 4 mmol/L (6-16); Blood Urea Nitrogen 28 mg/dL (8-24); Bun/Creatinine Ratio 45.3 (12.0-20.0); CO2, Blood 34 mmol/L (21-32); Calcium, Blood 8.4 mg/dL (8.5-10.1); Chloride, Blood 107 mmol/L (98-108); Creatinine, Blood 0.62 mg/dL (0.60-1.20); Glomerular Filtration Rate >60 (60-); Glucose, Blood 129 mg/dL (70-99); Magnesium, Blood 1.8 mg/dL (1.6-2.4); Phosphorus, Blood 3.1 mg/dL (2.5-4.9); Potassium, Blood 3.6 mmol/L (3.5-5.5); Sodium, Blood 145 mmol/L (136-145)
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
--- NOTE | 2021-05-31 08:00 | NUR ---
Received report from Vannessa WICK. Patient has trach, 8.0 Shiley cuffed and is on vent eith settings AC 14, TV 350, FiO2 30, PEEP 5.0 and sta s>90%. He opens eyes to squint and follows minimal commands/He has PICC line to LEIGH ANN dressing intact and site WNL's and is infusing Propofol at 25 mcg/kg/min, Antony synepherine is on standby, Fentanyl 25 mcg/hr and NS TKO x2. He has Peg LUQ and is infusing VHP at 45 ml/hr with 30 ml water flushes Q4. He has 16 Fr temp kenney draing to gravity and alaniz=s low grade temp. He has bilateral mehta boots to feet. He has bilateral soft wrist restraints in place.
--- NOTE | 2021-05-31 10:04 | NUR ---
No chnages to vent or gtt's. He has elia resting. Cleaned up from rectal tube leaking. VSS.
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
--- NOTE | 2021-05-31 13:30 | NUR ---
Dr Louie has seen patient and place on spon. Mode 8/5 at FiO2 30% and propofol placed on standby. He continues to have copious amout of oral and trach secretions to suction. Precedex continues at 0.7 mcg/kg/hr, Fentanyl at 25 mcg/hr. Just emptied 1400 ml yellow clear urine. VSS, See EMR.
--- NOTE | 2021-05-31 15:44 | NUR ---
Patient placed back on Propofol and AC mode. Propofol at 25 mcg/kg/min. VSS, See EMR.
--- NOTE | 2021-05-31 18:09 | NUR ---
Patient resting with fan cooling patient ahs not been diaphoretic since applying fan. Vent setting AC 14, TV 350, FiO2 30, PEEP 5.0, sats >90%. PICC line infusing Propofol at 25 mcg/kg/min, Precedex at 0.7 mcg/kg/hr and NS at TKO x2, Fentanyl at 25 mcg/hr. Rectal tube out put 398 and urine over 1400 ml yellow urine. Repositioned.
--- NOTE | 2021-05-31 20:00 | NUR ---
ASSUMED CARE OF PT AT 1915. REPORT RECEIVED AT BEDSIDE. PT PRESENTS IN BED. VENTED PER TRACH. AC 14, Tv 350, FIO2 30%, PEEP 5. PT TOLERATING THIS WELL. SEE ICU FLOWSHEET FOR IV DRIPS FOR SEDATION. SUCTIONED PT PER TRACH WITH RETURN OF THICK CORRIGAN COLORED SECRETIONS. DIGNISHIELD IN PLACE WITH DRAINAGE OF BROWNISH LIQUID STOOL. LANZA CATHETER WITH YELLOW URINE Q.S. AT THIS TIME. TUBE FEEDING PIVOT AT GOAL RATE. WILL REVIEW CHART AND PLAN OF CARE FOR THIS PT.
--- NOTE | 2021-06-01 | NUR ---
HAVE INCREASED PROPOFOL TO 30 MCG'S/KG/MIN SECONDARY TO PT BEING RESTLESS. THIS IMPROVES VENT TOLERANCE. HAVE BEEN ABLE TO SUCTION YELLOW/CORRIGAN COLORED SECRETIONS FROM TRACH. TOLERATES Q 2 HOUR TURNS. WILL CONTINUE TO MONITOR PT.
[2021-06-01 05:51] LABS: BASOPHILS ABSOLUTE AUTO 0.02 K/mm3 (0.00-0.23); BASOPHILS PERCENT AUTO 0 % (0-2); EOSINOPHILS ABSOLUTE AUTO 0.27 K/mm3 (0.00-0.68); EOSINOPHILS PERCENT AUTO 4 % (0-6); Hematocrit 23.3 % (37.0-53.0); Hemoglobin 7.2 g/dL (13.5-17.5); IMMATURE GRAN ABSOLUTE AUTO 0.09 K/mm3 (0.00-0.10); IMMATURE GRAN PERCENT AUTO 1 % (0-1); LYMPHOCYTES ABSOLUTE AUTO 0.66 K/mm3 (0.84-5.20); LYMPHOCYTES PERCENT AUTO 9 % (21-46); MONOCYTES ABSOLUTE AUTO 0.57 K/mm3 (0.16-1.47); MONOCYTES PERCENT AUTO 8 % (4-13); Mean Corpuscular HGB 29.8 pg (26.0-34.0); Mean Corpuscular HGB Conc 30.9 g/dL (31.5-36.5); Mean Corpuscular Volume 96 fL (80-100); Mean Platelet Volume 9.8 fL (9.1-12.4); NEUTROPHILS ABSOLUTE AUTO 5.84 K/mm3 (1.96-9.15); NEUTROPHILS PERCENT AUTO 78 % (41-73); NRBC ABSOLUTE 0.02 K/mm3 (0.00-0.02); NRBC Auto 0.3 /100 WBC (0.0-0.2); Platelet Count 326 K/mm3 (150-400); RDW Coefficient Variation 15.7 % (11.7-14.2); RDW Standard Deviation 54.8 fL (35.1-46.3); Red Blood Cell Count 2.42 M/mm3 (4.30-5.90); White Blood Cell Count 7.45 K/mm3 (4.00-11.30)
[2021-06-01 06:07] LABS: Anion Gap 2 mmol/L (6-16); Blood Urea Nitrogen 23 mg/dL (8-24); Bun/Creatinine Ratio 37.2 (12.0-20.0); CO2, Blood 38 mmol/L (21-32); Calcium, Blood 8.6 mg/dL (8.5-10.1); Chloride, Blood 106 mmol/L (98-108); Creatinine, Blood 0.62 mg/dL (0.60-1.20); Glomerular Filtration Rate >60 (60-); Glucose, Blood 135 mg/dL (70-99); Potassium, Blood 3.1 mmol/L (3.5-5.5); Sodium, Blood 146 mmol/L (136-145)
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
--- NOTE | 2021-06-01 07:11 | NUR ---
Received report from Srikanth WICK. Patient has #8 Shiley Trach and inner cannula changed yesterday. His settings are AC 14, TV 350, FiO2 30%, PEEP 5.0 and tyree >95%. He has peg tube LUQ and is infusing Pivot 1.5 at 40 ml and 30 ml q4 water flush, formula changed from P yesterday. He has 16 Fr temp kenney draining to gravity yellow urine. He opens eyes slightly to loud verbal stimuli and barely squeezes when directing to. He has rectal tube in place with liquid brown stool. He has PICC line to LEIGH ANN and is infusing Propofol at 25 mcg/kg/min, Precedex 0.7 mcg/kg/hr, Potassium rider 1/3, Fentanyl TECHNICAL BUSINESS SYSTEMS ANALYST at 25 mcg/hr and NS TKO x2. Facial scabs looking better. Oral care and trach care done and repositioned . Changed out TECHNICAL BUSINESS SYSTEMS ANALYST cartidge with Srikanth Mi prior to change of shift.
--- NOTE | 2021-06-01 10:08 | NUR ---
No significant changes with patient, VSS, See EMR. Tolerated am meds and TF's.
--- NOTE | 2021-06-01 11:41 | NUR ---
Patient vent circuit changed out by RT. Dr Louie into see patient and we stopped sedation and Fentanyl gtt. Repositioned patient and boosted in bed. VSS, See EMR. No current changes with neuro. Daughter called and gave update. No other significant changes.
--- NOTE | 2021-06-01 14:00 | NUR ---
Patient is now on PC 8/5 and FiO2 30%. He is also now up in chair and tolerateing well. VSS, See EMR. Propofol and Fentanyl still remains off. empied 1900 urine from kenney. plan in to go to PRN fentaly, adjust Precedex and if needed restart low dose Propofol, AC mode for rest.
--- NOTE | 2021-06-01 16:50 | NUR ---
Patient continues on PC 8/5 30%, sedatives remains off and he does not show any signs of excess work breathing. No significant changes with patient and still being off sedatived part of the day no increased neuro activity.
--- NOTE | 2021-06-01 18:30 | NUR ---
Dc'd restraints and patient shows no signs of extremity movement after getting back to bed from chair. Patient has been hypertensive and called dr Louie and received order for Norvasc 10 mg. Talked with son and gave update. Changed linen.
--- NOTE | 2021-06-01 19:19 | NUR ---
ASSUMED CARE OF PT AT 1915. REPORT RECEIVED AT BEDSIDE. PT PRESENTS IN BED. HAS HIS EYES OPEN WITHOUT NOTEABLE TRACKING. RESISTS WITH ORAL SUCTIONING. ETT SUCTIONING WITH MODERATE AMOUNT OF YELLOW SECRETIONS. WILL REVIEW CHART AND PLAN OF CARE FOR THIS PT.
--- NOTE | 2021-06-01 23:00 | NUR ---
HAVE CHANGED PT BACK TO AC SETTINGS OF AC 14, Tv 350, FIO2 30%, PEEP 5. PRECEDEX DRIP INCREASED TO 1.4 MCG'S/KG/HOUR. PT HAS HAD SOME PINK TINGED SECRETIONS FROM ETT. WILL CONTINUE TO MONITOR PT
--- NOTE | 2021-06-02 04:09 | NUR ---
PT HAS DEVELOPED A LEFT NARE BLEED. HAVE SUBSEQUENTLY PACKED LOOSELY WITH SALINE SOAKED GAUZE. THIS HAS BEEN AFFECTIVE TO CURTAIL BLEED. WILL CONTINUE TO MONITOR. PT MAINTAINS ON AC SETTINGS. TOLERATING THIS WELL. TUBE FEEDING AT GOAL. PT TOLERATING THIS WELL. MINIMINAL RESIDUALS REMAIN < 15 ML. WILL CONTINUE TO MONITOR PT.
[2021-06-02 05:50] LABS: Anion Gap 2 mmol/L (6-16); Blood Urea Nitrogen 23 mg/dL (8-24); Bun/Creatinine Ratio 44.4 (12.0-20.0); CO2, Blood 38 mmol/L (21-32); Calcium, Blood 9.1 mg/dL (8.5-10.1); Chloride, Blood 105 mmol/L (98-108); Creatinine, Blood 0.52 mg/dL (0.60-1.20); Glomerular Filtration Rate >60 (60-); Glucose, Blood 143 mg/dL (70-99); Potassium, Blood 3.2 mmol/L (3.5-5.5); Sodium, Blood 145 mmol/L (136-145)
--- NOTE | 2021-06-02 06:51 | NUR ---
PT CURRENTLY BACK TO SPONTANEOUS. TOLERATING WELL. PRECEDEX AT 1.2 MCG'S PER KG/HOUR. WILL CONTINUE TO MONITOR PT, AND WILL REPORT OFF TO ONCOMING RN.
--- NOTE | 2021-06-02 09:46 | NUR ---
PT IS ON SPONT VENT SETTINGS 30% WITH RR OF 24-28. VS HAVE BEEN TRENDING UP AND ROUTINE WITH PRN MEDS GIVEN. PT WILL FOLLOW REQUESTS TO FINISH CARPENTER HANDS, STICK OUT TONGUE BUT NO MOVEMENT OF HEAD FOR YES/NO RESPONSES. PT REMAINS ON PRECEDEX GTT AT 1.2 AND WILL FOLLOW. NO RESIDUALS NOTED. RECTAL TUBE IS IN PLACE. 0920 PT WOB, HR, BP ELEVATED AND PT RETURNED PER RT TO AC+ SETTINGS. SATS NOTED. PT IS NOT RESTRAINED AND NO ATTEMPS TO MOVE ARMS OR PULL AT TUBING IS NOETD.
--- NOTE | 2021-06-02 15:16 | NUR ---
1230 PT WAS LIFTED TO CHAIR AND CHANGED TO AC MODE. PT HR AND BP ELEVATED FOR SHORT TIME. 1445 PT NOTED TO BE IN ST 115-120 RANGE AND METOPROLOL GIVEN AND HR DOWN TO 90 R[address] PAC NOTED AND DR FOOTE AWARE.
--- NOTE | 2021-06-02 16:48 | NUR ---
PT ADMITTED TO ICU-7 VIA GURNEY. PT OBTUNDED, GURGLING, INC. WOB AND DISTRESSED. NASAL TRUMPET IS IN PLACE AND NO ACTIVE BLEEDING EXTERNALLY AND NT SX WITH SMALL BLOODY RETURN NOTED. PT ON NRB AND SATS 85-88 UNTIL AFTER NT SX. PREPPING PT FOR INTUBATION. MEDS GIVEN PER DR FOOTE AND INTUBATE AND ON VENTAT AC 14, 400, 100%, 5.
--- NOTE | 2021-06-02 18:56 | NUR ---
PT REMAINS UP IN CHAIR AND TOLERATING 8/5 30% VENT SETTINGS SPONTANIOUS. T.F. WERE CHANGED NOTED AND STARTED AT 25 ML AND PT TOLERATING WELL. PT HAVING INC FLATUS, I/O NOTED. CURRENT VENT SETTINGS ARE BEING WELL TOLERATED.
--- NOTE | 2021-06-02 20:00 | NUR ---
ASSUMED CARE OF PT AT 1915. REPORT RECEIVED AT BEDSIDE. PT PRESENTS SITTING UP IN BEDSIDE RECLINER. VENT: SPONTANEOUS AT 8/5. 30 PERCENT FIO2. PT IN NO APPARENT DISTRESS AT THIS TIME. MAINTAINS > 90 PERCENT SATURATION AT THIS TIME. WILL REVIEW CHART AND PLAN OF CARE FOR THIS PT.
--- NOTE | 2021-06-02 23:00 | NUR ---
PT BACK TO BED USING RN, J2EE ARCHITECT, AND RT FOR SAFETY. CELING LIFT USED, PT TOLERATED THIS WELL. PT CONTINUES ON SPONTANEOUS 06/23 WITH 30 PERCENT FIO2. HAVE SUCTIONED PT SEVERAL TIMES WITH RETURN OF CREAM COLORED SECRETIONS. PT ON 1.4 PRECEDEX PER KG/HOUR. TOLERATING TUBE FEEDING WELL. LOW RESIDUALS. WHEN PEG TUBE OPENED FOR MEDS, PT PASSESS LARGE AMOUNT OF GAS THROUGH THE TUBE. WILL CONTINUE TO MONITOR PT.
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
[2021-06-03 04:53] LABS: Anion Gap 1 mmol/L (6-16); Blood Urea Nitrogen 21 mg/dL (8-24); Bun/Creatinine Ratio 34.3 (12.0-20.0); CO2, Blood 40 mmol/L (21-32); Chloride, Blood 101 mmol/L (98-108); Creatinine, Blood 0.61 mg/dL (0.60-1.20); Glomerular Filtration Rate >60 (60-); Glucose, Blood 130 mg/dL (70-99); Potassium, Blood 3.4 mmol/L (3.5-5.5); Sodium, Blood 142 mmol/L (136-145)
--- NOTE | 2021-06-03 06:49 | NUR ---
PT HAS HAD NOSE BLEED THAT HAS SLOWED SECONDARY TO GAUZE PACKING. PT SOMEWHAT RESISTANT TO THIS CARE. PT HAS REMAINED ON SPONTANEOUS 8/ WITH FIO2 30 PERCENT. HAS MAINTAINED SATURATIONS > 90 PERCENT. HAS HAD SOME ELEVATION IN BLOOD PRESSURES THIS NIGHT. HAVE MEDICATED PT WITH PRN METOPROLOL WITH SOME RELIEF. WILL CONTINUE TO MONITOR PT, AND WILL REPORT OFF TO ONCOMING RN.
[2021-06-03 07:51] LABS: Hematocrit 26.5 % (37.0-53.0)
[2021-06-03 08:34] LABS: Percent Saturation 12.8 % (20.0-50.0)
--- NOTE | 2021-06-03 09:38 | NUR ---
[place] of Care: Care assumed at 0700hr. Patient remains on ventilator per trach at pressure support mode of 8/5/30%. Respirations 24-28, with some accessory muscle use, but appears comfortable. Patient opens eyes spontaneously, and tracks staff in room. Followed commands to squeeze hands but not nodding head, or following any other commands. Occasional small gross movements of all extremities. Precedex gtt at 1.4mcg/kg/min, plan to titrated down today. PICC line to LEIGH ANN patent and intact, Power-glide to MCKENNA patent and intact. Alvarez cath patent and intact, draining clear yellow urine. VSS, will continue to monitor.
[2021-06-03 11:23] LABS: Base Excess Venous 20.4 mmol/L; Bicarbonate Venous 42.2 mmol/L (24.0-30.0); PO2 Venous 42.2 mmHg (38-42); pH Blood Venous 7.51 (7.34-7.37)
--- NOTE | 2021-06-03 18:20 | NUR ---
Shift Summary: No significant changes throughout shift. Patient's vent changed to VC+ this morning per Dr. London to promote rest, tolerating VC+ without difficulty. VS remain stable. HR occassional increased to 13-'s-140's (sinus) when patient became agitated with care, and/or s/s of pain. When care finished and/or prn fentanly effective, no prn's required to treat heart rate. Patient able to follow simple commands but remains very weak, able to nod head yes this afternoon. Trach care performed this shift, with suture removal, trach appliance did not need to be changed today per Dr. London. Patient appears calm and comfortable, will continue to monitor until report to NOC shift RN.
--- NOTE | 2021-06-03 19:00 | NUR ---
ASSUMED CARE ASSUMED CARE OF PATIENT. MECHANICAL VENTILATION- SPONTANEOUS PS 8, PEEP 5, FIO2 30%. RR 20-30s DEPENDING ON STIMULATION. SEDATED WITH PRECEDEX AT 1.0 MCG/KG/HR AT THIS TIME TIME. OPENS EYES TO VERBAL STIMULI. FOLLOWS SIMPLE COMMANDS. MOVES EXTREMITIES WEAKLY. MONITOR SHOWS NSR WITH BBB, RATE 90s. BP STABLE. PEG TUBE WITH TUBE FEEDING AT GOAL RATE OF 40CC/HR. LANZA PATENT AND DRAINING YELLOW URINE. LEIGH ANN PICC AND MCKENNA POWERGLIDE NOTED. SEE SHIFT ASSESSMENT FOR FULL ASSESSMENT.
[2021-06-04 04:57] LABS: BASOPHILS ABSOLUTE AUTO 0.04 K/mm3 (0.00-0.23); BASOPHILS PERCENT AUTO 1 % (0-2); EOSINOPHILS ABSOLUTE AUTO 0.35 K/mm3 (0.00-0.68); EOSINOPHILS PERCENT AUTO 4 % (0-6); Hematocrit 23.5 % (37.0-53.0); Hemoglobin 7.1 g/dL (13.5-17.5); IMMATURE GRAN ABSOLUTE AUTO 0.05 K/mm3 (0.00-0.10); IMMATURE GRAN PERCENT AUTO 1 % (0-1); LYMPHOCYTES ABSOLUTE AUTO 1.04 K/mm3 (0.84-5.20); LYMPHOCYTES PERCENT AUTO 13 % (21-46); MONOCYTES PERCENT AUTO 9 % (4-13); Mean Corpuscular HGB 29.1 pg (26.0-34.0); Mean Corpuscular HGB Conc 30.2 g/dL (31.5-36.5); Mean Corpuscular Volume 96 fL (80-100); Mean Platelet Volume 9.5 fL (9.1-12.4); NEUTROPHILS ABSOLUTE AUTO 5.89 K/mm3 (1.96-9.15); NEUTROPHILS PERCENT AUTO 73 % (41-73); Platelet Count 425 K/mm3 (150-400); RDW Coefficient Variation 15.4 % (11.7-14.2); RDW Standard Deviation 54.3 fL (35.1-46.3); Red Blood Cell Count 2.44 M/mm3 (4.30-5.90); White Blood Cell Count 8.07 K/mm3 (4.00-11.30)
[2021-06-04 05:23] LABS: Albumin, Blood 1.8 g/dL (3.4-5.0); Anion Gap 1 mmol/L (6-16); Blood Urea Nitrogen 23 mg/dL (8-24); Bun/Creatinine Ratio 35.6 (12.0-20.0); CO2, Blood 40 mmol/L (21-32); Calcium, Blood 8.7 mg/dL (8.5-10.1); Chloride, Blood 101 mmol/L (98-108); Creatinine, Blood 0.65 mg/dL (0.60-1.20); Glomerular Filtration Rate >60 (60-); Glucose, Blood 154 mg/dL (70-99); Magnesium, Blood 1.9 mg/dL (1.6-2.4); Phosphorus, Blood 2.4 mg/dL (2.5-4.9); Potassium, Blood 3.2 mmol/L (3.5-5.5); Sodium, Blood 142 mmol/L (136-145)
--- NOTE | 2021-06-04 06:33 | NUR ---
SHIFT SUMMARY NO ACUTE CHANGES. REMAINS ON SPONTANEOUS VENTILATION WITH PS 8, PEEP 5, FIO2 30%. TACHYPNEA NOTED WITH RESTLESSNESS/STIMULATION. OCCASIONALLY FOLLOWS SIMPLE COMMANDS. TRACKS WITH EYES. MOVES ALL EXTREMITIES WEAKLY. SEDATED WITH PRECEDEX BETWEEN 1.0-1.4MCG/KG/HR- NOW INFUSING AT 1.2MCG/KG/HR. ALSO MEDICATED WITH FENTANYL 50MCG IV X 4 DOSES FOR COMFORT AND SEDATION ADJUNCT. PEG TUBE WITH 2 ILIR HN AT GOAL RATE OF 40CC/HR. RECTAL TUBE WITH APPROXIMATELY 100CC LIQUID BROWN STOOL. LANZA PATENT AND DRAINING TO GRAVITY. LEIGH ANN PICC AND MCKENNA POWERGLIDE NOTED. CONTINUES WITH BLOOD FROM LEFT EAR. VSS. AFEBRILE. WILL REPORT TO ONCOMING RN WHEN AVAILABLE.
--- NOTE | 2021-06-04 11:03 | NUR ---
AM NOTE... ASSUMED CARE OF PT AT 0700, PT HAS A TRACH AND IS ON THE VENT AT SPONTAINIOUS AT 8/5 AND 30% WITH O2 SATS >92%. PT'S L/S COARSE WITH EXP WHEEZES HEARD T/O AND DIM IN THE BASES. A MODERATE AMOUNT OF THICK CORRIGAN SECRETIONS WERE SUCTIONED FROM HIS TRACH THIS AM. PT IS IN ST WITH HR IN THE LOW 100'S. BP IS STABLE. PT IS ON PRECEDEX GTT RUNNING AT 1.2MCG, THIS WAS TITRATED DOWN TO 1.0MCG. PT'S EYES ARE OPEN AND HE IS FOLLOWING COMMANDS AT THIS TIME. PT IS ABLE TO MOVE ALL EXTREMITIES WEAKLY. PT HAS DEPENDENT EDEMA TO HIS BUE AND 1+ TO HIS BLE WELL GENERALIZED TO HIS TORSO/TRUNK. PT HAS MODERATE ABD DISTENTION THAT IS FIRM AND TENDER TO PALP, PT'S TUBE FEEDING IS RUNNING VIA PEG TUBE AT THE GOAL RATE OF 40MLS/HR WITH 30MLS H2O FLUSHES Q4HRS, NO RESIDUAL WAS FOUND DURING ASSESSMENT THIS AM, BT VERY HYPERACTIVE. RECTAL TUBE IS PATENT AND DRAINING LIQUID BROWN STOOL TO GRAVITY. PT'S LANZA IS PATENT AND DRAINING TO GRAVITY. WILL CONTINUE TO MONITOR.
--- NOTE | 2021-06-04 11:22 | NUR ---
PT UPDATE... THE INNER CANNULA OF THE PT'S TRACH WAS CHANGED OUT BY RT AMADOR, THIS RN AT THE BEDSIDE. THERE WAS PINK TINGED SECRETIONS NOTED ON THE OLD INNER CANNUAL. THE PT'S TRACH WAS SUCTIONED AND THICK CORRIGAN SECRETIONS WERE REMOVED. PT TOLERATED THIS EXCHANGE WELL. PT'S CURRENT SETTINGS ON THE VENT ARE 5/5 AND 30%FIO2 WITH O2 SATS >92%. PER DR. TITUS IF THE PT CONTINUES TO DO WELL ON THESE SETTINGS THE PT WILL BE SWITCHED TO A TRACH COLLAR. WILL CONTINUE TO MONITOR.
--- NOTE | 2021-06-04 17:46 | NUR ---
SHIFT SUMMARY... NO ACUTE NEGATIVE CHANGES NOTED THIS SHIFT. PT HAS BEEN AWAKE AND ALERT FOR THE WHOLE SHIFT. PT'S VS HAVE BEEN STABLE T/O SHIFT, PT'S BP HAS BEEN ON THE HIGH SIDE A TIMES BUT THAT HAS BE DUE TO TRYING TO TITRATE OFF THE PRECEDEX GTT. CURRENTLY THE PT IS ON PRECEDEX AT 0.5MCG, 0.5MG OF XANAX WAS STARTED PER TUBE WITH THE HOPE OF STOPPING THE PRECEDEX GTT. PT WAS SWICHTED FROM THE VENT TO THE TRACH COLLAR AT 26% 1530, PT HAS TOLERATED THIS WELL KEEPING O2 SATS >92%, RR HAS BEEN IN THE HIGH 20'S WHICH HAS BEEN HIS RATE FOR SOME TIME. PT'S HR CONTINUES TO BE IN THE LOW 100'S TO 110'S. PT CONTINUES TO HAVE A MODERATE AMOUNT OF THICK CORRIGAN TRACHIAL SECRETIONS. THE PT'S LEFT EAR HAS STOPPED BLEEDING SINCE THE START OF THIS SHIFT. PT SEEMS TO BE TOLERATING HIS TUBE FEEDS WELL BUT HAS HAD A LARGE AMOUNT OF GAS IN THE RECTAL TUBE. THE RECTAL TUBE HAS DRAINED 100MLS OF LIQUID STOOLS TODAY. PT'S LANZA IS PATENT AND DRAINING CLEAR YELLOW URINE TO GRAVITY. PT'S FAMILY UPDATED ON THE PT'S CONDITION, IMPROVEMENTS AND PLAN OF CARE. PT WAS GIVEN A BED BATH AND LINEN CHANGE THIS SHIFT. CALL LIGHT IN REACH WILL CONTINUE TO MONITOR UNTIL REPORT IS GIVEN TO ONCOMING RN.
--- NOTE | 2021-06-04 18:20 | NUR ---
PT UPDATE... AT 1800 PT'S PEG TUBE RESIDUALS WERE CHECKED AT FOUND TO HAVE 250MLS WITH A LOT OF GAS, THE 250MLS WERE REINSTILLED, PT'S RESIDUALS WERE 0 THIS AM. WILL CONTINUE TO MONITOR.
--- NOTE | 2021-06-04 19:00 | NUR ---
ASSUMED CARE ASSUMED CARE OF PATIENT. PT IS ON A TRACH COLLAR, FIO2 26%. RR 28-34. PT IS AWAKE AND ALERT. FOLLOWS SIMPLE COMMANDS AND TRACKS WITH EYES. NODS HEAD YES/NO SEEMINGLY APPROPRIATELY. PRECEDEX INFUSING AT 0.5MCG/KG/HR. MOVES EXTREMITIES WEAKLY AND MINIMALLY. MONITOR SHOWS ST WITH BBB, RATE 100-104. BP STABLE. AFEBRILE. PEG TUBE WITH 2 ILIR HN AT GOAL RATE OF 40CC/HR. LANZA PATENT AND DRAINING TO GRAVITY. SEE SHIFT ASSESSMENT FOR FULL ASSESSMENT.
--- NOTE | 2021-06-05 03:39 | NUR ---
BACK TO VENTILATOR PT WITH CONTINUED TACHYPNEA, RATE 30s, AND INCREASED WORK OF BREATHING WITH ACCESSORY MUSCLE USE. PLACED BACK ON VENTILATOR AT THIS TIME- SPONTANEOUS WITH PS 10, PEEP 5, FIO2 30%.
[2021-06-05 04:18] LABS: BASOPHILS ABSOLUTE AUTO 0.05 K/mm3 (0.00-0.23); BASOPHILS PERCENT AUTO 1 % (0-2); EOSINOPHILS ABSOLUTE AUTO 0.66 K/mm3 (0.00-0.68); EOSINOPHILS PERCENT AUTO 6 % (0-6); Hematocrit 26.1 % (37.0-53.0); Hemoglobin 7.9 g/dL (13.5-17.5); IMMATURE GRAN ABSOLUTE AUTO 0.05 K/mm3 (0.00-0.10); IMMATURE GRAN PERCENT AUTO 1 % (0-1); LYMPHOCYTES ABSOLUTE AUTO 1.29 K/mm3 (0.84-5.20); LYMPHOCYTES PERCENT AUTO 13 % (21-46); MONOCYTES ABSOLUTE AUTO 0.97 K/mm3 (0.16-1.47); MONOCYTES PERCENT AUTO 9 % (4-13); Mean Corpuscular HGB 29.2 pg (26.0-34.0); Mean Corpuscular HGB Conc 30.3 g/dL (31.5-36.5); Mean Corpuscular Volume 96 fL (80-100); Mean Platelet Volume 9.3 fL (9.1-12.4); NEUTROPHILS ABSOLUTE AUTO 7.29 K/mm3 (1.96-9.15); NEUTROPHILS PERCENT AUTO 71 % (41-73); Platelet Count 548 K/mm3 (150-400); RDW Coefficient Variation 15.6 % (11.7-14.2); RDW Standard Deviation 54.6 fL (35.1-46.3); Red Blood Cell Count 2.71 M/mm3 (4.30-5.90); White Blood Cell Count 10.31 K/mm3 (4.00-11.30)
[2021-06-05 04:35] LABS: Anion Gap 1 mmol/L (6-16); Blood Urea Nitrogen 22 mg/dL (8-24); Bun/Creatinine Ratio 36.9 (12.0-20.0); CO2, Blood 39 mmol/L (21-32); Calcium, Blood 8.8 mg/dL (8.5-10.1); Chloride, Blood 99 mmol/L (98-108); Glomerular Filtration Rate >60 (60-); Glucose, Blood 183 mg/dL (70-99); Phosphorus, Blood 3.9 mg/dL (2.5-4.9); Potassium, Blood 3.8 mmol/L (3.5-5.5); Sodium, Blood 139 mmol/L (136-145)
--- NOTE | 2021-06-05 05:46 | NUR ---
SHIFT SUMMARY NO ACUTE CHANGES. REMAINED ON TRACH COLLAR 26% UNTIL 0340 THIS AM. PLACED BACK ON VENTILATOR- SPONTANEOUS PS 10, PEEP 5, FIO2 30% D/T TACHYPNEIC AND INCREASED WORK OF BREATHING. PT BECOMES DIAPHORETIC WITH TACHYPNEA AND INCREASED WOB. PRECEDEX INFUSED BETWEEN 0.5-0.9MCG/KG/HR TO FACILITATE VENT/TRACH TOLERANCE- NOW INFUSING AT 0.9MCG/KG/HR. ALSO MEDICATED WITH FENTANYL 50MCG IV X 5 DOSES FOR COMFORT AND A SEDATION ADJUNCT. PT CONTINUES TO FOLLOW SIMPLE COMMANDS. VSS. AFEBRILE. OCCASIONALLY HYPERTENSIVE WITH AGITATION/RESTLESSNESS. PEG TUBE WITH 2 ILIR HN AT GOAL RATE OF 40CC/HR. RECTAL TUBE IN PLACE WITH SMALL AMOUNT OF LIQUID BROWN STOOL. LANZA PATENT AND DRAINING YELLOW URINE. WILL REPORT TO ONCOMING RN WHEN AVAILABLE.
--- NOTE | 2021-06-05 12:48 | NUR ---
REASSESSMENT PT HAS BEEN ON THE VENTILATOR VIA THE TRACH COLLAR THIS MORNING. HE IS AWAKE AND FOLLOWS COMMANDS TO SQUEEZE HANDS, BUT WON'T ANSWER QUESTIONS BY NODDING OR SHAKING HIS HEAD. HE APPEARS PROFOUNDLY WEAK. LUNGS ARE DIM, OCCASIONAL COARSENEES THAT CLEARS WITH SUCTIONING. MODERATE AMT OF CREAMY, YELLOW SPUTUM SUCTIONED FROM TRACH. SR. BP STABLE. IT DID DIP AFTER RECEIVING A DOSE OF PAIN MEDICATION, BUT RECOVERED WITHOUT ANY INTERVENTION. PT'S BREATHING APPERAS LABORED AT TIMES, BUT IMPROVES WITH PAIN MEDICATION. TOLERATING TUBE FEEDS. RECTAL TUBE WITH SMALL AMT OF LIQUID OUTPUT. GOT PT UP TO THE CHAIR WITH LIFT TODAY AND HE IS TOLERATING SO FAR. CONTINUING TO MONITOR.
--- NOTE | 2021-06-05 17:00 | NUR ---
SHIFT SUMMARY PT REMAINED ON THE VENTILATOR TODAY VIA TRACH. HIS RESPIRATORY RATE REMAINED IN THE UPPER 20S-30. WHEN HE RECEIVES PAIN MEDICINE HIS RESPIRATORY RATE SLOWS TO THE LOW 20S AND PT'S BREATHING DOES APPEAR EASIER. LUGNS ARE DIM, COARSE AT TIMES. LARGE AMT OF THICK YELLOW SECRETIONS THIS AFTERNOON. PT OPENS HIS EYES AND LOOKS AT PEOPLE IN THE ROOM. HE FOLLOWS SIMPLE COMMANDS MOST OF THE TIME. HE HAS A VERY WITHDRAWN AFFECT AND DOESN'T INTERACT WITH STAFF UNLESS FORCED TO. ST THIS EVENING IN THE LOW 100S, OCCASIONAL PAC. BP STABLE. TOELRATING TUBE FEED WITH LESS THAN 20ML RESIDUAL, SCANT RECTAL TUBE OUTPUT. CL YELLOW URINE FROM LANZA. SPOKE WITH PT'S SISTER AND PROVIDED UPDATE. CONTINUE TO MONITOR.
--- NOTE | 2021-06-05 20:46 | NUR ---
PATIENT NOT OPENING EYES, MOVING LEFT ARM SLIGHTLY WHEN ASKED TO SQUEEZE MY HAND. PRECEDEX 0.5 MCG CONTINUES. WITH STIMULI HEART RATE AND RESP INCREASE. TRACH IN PLACE AND MIDLINE WITH VENT SET PS 18/5 FIO2 30% SUCTIONING LIGHT YELLOW SPUTUM. PEG TUBE IN PLACE TO LEFT UPPER QUAD, WITH TUBE FEEDING TWOCAL HN 2.0 AT GOAL RATE OF 40 CC/HR. RECTAL TUBE IN PLACE WITH SMALL AMT OF LIQUID BROWN STOOL CONTAINED IN TUBE.
[2021-06-06 04:52] LABS: BASOPHILS ABSOLUTE AUTO 0.06 K/mm3 (0.00-0.23); BASOPHILS PERCENT AUTO 1 % (0-2); EOSINOPHILS ABSOLUTE AUTO 0.64 K/mm3 (0.00-0.68); EOSINOPHILS PERCENT AUTO 6 % (0-6); Hematocrit 25.7 % (37.0-53.0); Hemoglobin 7.8 g/dL (13.5-17.5); IMMATURE GRAN ABSOLUTE AUTO 0.06 K/mm3 (0.00-0.10); IMMATURE GRAN PERCENT AUTO 1 % (0-1); LYMPHOCYTES ABSOLUTE AUTO 1.49 K/mm3 (0.84-5.20); LYMPHOCYTES PERCENT AUTO 14 % (21-46); MONOCYTES ABSOLUTE AUTO 1.11 K/mm3 (0.16-1.47); MONOCYTES PERCENT AUTO 11 % (4-13); Mean Corpuscular HGB 29.3 pg (26.0-34.0); Mean Corpuscular HGB Conc 30.4 g/dL (31.5-36.5); Mean Corpuscular Volume 97 fL (80-100); Mean Platelet Volume 9.8 fL (9.1-12.4); NEUTROPHILS ABSOLUTE AUTO 7.18 K/mm3 (1.96-9.15); NEUTROPHILS PERCENT AUTO 68 % (41-73); Platelet Count 594 K/mm3 (150-400); RDW Coefficient Variation 15.8 % (11.7-14.2); RDW Standard Deviation 55.6 fL (35.1-46.3); Red Blood Cell Count 2.66 M/mm3 (4.30-5.90); White Blood Cell Count 10.54 K/mm3 (4.00-11.30)
[2021-06-06 05:08] LABS: Anion Gap 0 mmol/L (6-16); Blood Urea Nitrogen 25 mg/dL (8-24); Bun/Creatinine Ratio 41.3 (12.0-20.0); CO2, Blood 40 mmol/L (21-32); Calcium, Blood 9.1 mg/dL (8.5-10.1); Chloride, Blood 100 mmol/L (98-108); Creatinine, Blood 0.61 mg/dL (0.60-1.20); Glomerular Filtration Rate >60 (60-); Glucose, Blood 161 mg/dL (70-99); Potassium, Blood 3.8 mmol/L (3.5-5.5); Sodium, Blood 140 mmol/L (136-145)
--- NOTE | 2021-06-06 05:10 | NUR ---
RECTAL TUBE REMOVED DUE TO SCANT OUTPUT, SMALL FORMED BRON STOOL REMOVED WITH TUBE.
--- NOTE | 2021-06-06 06:34 | NUR ---
SUMMARY PATIENT REMAINS ON PS 18/5 FIO2 30% T/O NIGHT SUCTIONING THICK YELLOW SPUTUM. FENTANYL GIVEN WHEN HR AND RESP RATE ELEVATED. OPENING EYES SPONT, FOLLOWING SIMPLE DIRECTIONS, VERY WEAK. PRECEDEX 0.5 CONTINUES TO HELP PATIENT CHELA TRACH AND VENT. TUBE FEEDING CONTINUES VIA PEG TUBE. RECTAL TUBE REMOVED.
--- NOTE | 2021-06-06 13:04 | NUR ---
REASSESSMENT PT WILL OPEN HIS EYES TO PAIN, BUT WILL NOT FOLLOW ANY COMMANDS THIS MORNING. SEDATION REMAINS OFF. PT'S HR HAS GOTTEN UP TO 120S, PRN METOPROLOL GIVEN. FENTANYL GIVEN FOR LABORED BREATHING. FACE LOVETT CLEANED. WOUND UNDER TRACH COLLAR CLEANED AND GEL DRESSING PLACED ON IT TO TRY AND RELIEVE THE PRESSURE ON IT. TUBE FEEDS INFUSING. OVER 1.5L URINE OUT AFTER LASIX THIS MORNING. PT'S SISTER CALLED AND WAS GIVEN UPDATE. CONTINUING TO MONITOR.
--- NOTE | 2021-06-06 15:50 | NUR ---
Review of pt with intesivist at rounding. pt not progressing well. review of medication and plan of care. Suggest reducing sedatives and getting consitant pain mangement so pt can tolerate wound care and trach care. Keep iv fentanyl for severe pain. Suggested more use of tylenol. and fentanly patch patient for plan of care for deconditioning and foot drop and prognositication. Will speak with family about future care and making pt DNR.
--- NOTE | 2021-06-06 16:39 | NUR ---
SHIFT SUMMARY PT HAS BEEN OFF THE SEDATION SINCE THIS MORNING AND REMAINED OFF THROUGHOUT THE SHIFT. THIS EVENING HE IS STARTING TO OPEN HIS EYES, BUT STILL WILL NOT FOLLOW COMMANDS. LUNGS ARE CLEAR. THEY HAVE COARSENESS AT TIMES THAT CLEARS WITH SUCTIONING. RR IN THE 30S AND HR ST IN THE 120S. DR. LOERA AWARE AND OK WITH RATES THAT HIGH. GAVE ORDERS TO CHANGE PO METOPROLOL TO Q6H. ABDOMEN STILL DISTENDED. PT HAD SOME AUDIBLE GAS TODAY. LANZA WITH CL YELLOW URINE. CONTINUING TO MONITOR.
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
--- NOTE | 2021-06-06 20:25 | NUR ---
PATIENT IN BED OPENING EYES TO STIMULI, SLIGHT MOVEMENT TO EXTREMITIES. TRACH MIDLINE WITH VENT SPONT 10/15 FIO2 30% SUCTIONING COPIOUS AMT OF THICK YELLOW SPUTUM. SUCTIONING FROTHY ORAL SECRETIONS. DRESSING TO LOWER TRACH IN PLACE UNDER FLANGE OF TRACH. PEG TUBE IN PLACE WITH TUBE FEEDING AT GOAL RATE OF 40 CC/HR ABD DISTENDED WITH HYPERACTIVE BOWEL TONES. PRECEDEX REMAINS OFF.
[2021-06-07 06:27] LABS: BASOPHILS ABSOLUTE AUTO 0.07 K/mm3 (0.00-0.23); BASOPHILS PERCENT AUTO 1 % (0-2); EOSINOPHILS ABSOLUTE AUTO 0.46 K/mm3 (0.00-0.68); EOSINOPHILS PERCENT AUTO 4 % (0-6); Hematocrit 26.7 % (37.0-53.0); IMMATURE GRAN ABSOLUTE AUTO 0.11 K/mm3 (0.00-0.10); IMMATURE GRAN PERCENT AUTO 1 % (0-1); LYMPHOCYTES ABSOLUTE AUTO 1.15 K/mm3 (0.84-5.20); LYMPHOCYTES PERCENT AUTO 9 % (21-46); MONOCYTES ABSOLUTE AUTO 1.41 K/mm3 (0.16-1.47); MONOCYTES PERCENT AUTO 11 % (4-13); Mean Corpuscular HGB 28.9 pg (26.0-34.0); Mean Corpuscular Volume 96 fL (80-100); Mean Platelet Volume 9.7 fL (9.1-12.4); NEUTROPHILS ABSOLUTE AUTO 9.64 K/mm3 (1.96-9.15); NEUTROPHILS PERCENT AUTO 75 % (41-73); NRBC ABSOLUTE 0.02 K/mm3 (0.00-0.02); NRBC Auto 0.2 /100 WBC (0.0-0.2); Platelet Count 653 K/mm3 (150-400); RDW Coefficient Variation 15.8 % (11.7-14.2); RDW Standard Deviation 56.4 fL (35.1-46.3); Red Blood Cell Count 2.77 M/mm3 (4.30-5.90); White Blood Cell Count 12.84 K/mm3 (4.00-11.30)
--- NOTE | 2021-06-07 06:30 | NUR ---
SUMMARY PATIENT MORE AWAKE THIS MORNING, HOLDING EYE CONTACT, NODDING SLIGHTLY YES AND NO TO SIMPLE QUESTIONS. MOVING BOTH LEGS SPONTANIOUSLY, NOT ALWAYS TO DIRECTION. BOTH ARMS VERY WEAK. TRACH REMAINS MIDLINE WITH VENT PS 10/15 FIO2 30% SUCTIONING LARGE AMT THICK YELLOW SPUTUM T/O NIGHT. AT TIMES HAVING FROTHY WHITE BUBBLES TO CORNER OF MOUTH OCCASIONALLY SUCTIONING CLEAR SECRETIONS FROM MOUTH. TUBE FEEDING CONTINUES VIA PEG TUBE AT GOAL RATE OF 40 CC/HR WITH TWOCAL HN 2.0.
[2021-06-07 06:51] LABS: Anion Gap 0 mmol/L (6-16); Blood Urea Nitrogen 26 mg/dL (8-24); Bun/Creatinine Ratio 43.6 (12.0-20.0); CO2, Blood 41 mmol/L (21-32); Calcium, Blood 9.5 mg/dL (8.5-10.1); Chloride, Blood 101 mmol/L (98-108); Glomerular Filtration Rate >60 (60-); Glucose, Blood 169 mg/dL (70-99); Potassium, Blood 3.8 mmol/L (3.5-5.5); Sodium, Blood 142 mmol/L (136-145)
--- NOTE | 2021-06-07 09:05 | NUR ---
ASSUMED CARE BEDSIDE REPORT FROM KASSY WICK AT 0700. PT c TRACH AND VENT, SPONT 10/15/30%. LUNGS DIMINISHED IN BASES. MODERATE AMOUNT OF THICK YELLOW SECRETIONS THROUGH TRACH. WOUNDS AROUND TRACH, SEE PHOTOS, FOAM AND NASAL PAD IN PLACE TO PREVENT FURTHER BREAKDOWN. PT OPENS EYES TO VERBAL STIMULI. APPEARS TO MAKE EYE CONTACT. DOES NOT FOLLOW COMMANDS. GROSS MOVEMENT TO ALL EXTREMITIES. ABD ROUND, DISTENDED. PEG TUBE IN PLACE. BT X 4. TUBE FEEDS AT GOAL OF 40 ML/HR c 30 ML FLUSHES q4 HR. LANZA PATENT, DRAINING CLEAR YELLOW URINE TO GRAVITY. BBB, RATE 100'S ON MONITOR. BT STABLE. SKIN BREAKDOWN TO PERIAREA, CLEANED AND NYSTATIN CREAM APPLIED. WILL CONTINUE TO MONITOR.
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
--- NOTE | 2021-06-07 17:02 | NUR ---
SHIFT SUMMARY VENT SETTINGS UNCHANGED, SPONT 10/15/30%. LUNGS DIMINISHED IN BASES. SPUTUM SENT FOR CULTURE THIS SHIFT. MODERATE THICK YELLOW SECRETIONS. PT OPENS EYES TO VERBAL STIMULI. NODDED HEAD WHEN SON ENTERED ROOM. DID NOT ANSWER ANY OTHER QUESTIONS. NOT FOLLOWING COMMANDS. TUBE FEEDS CONTINUE AT GOAL. LANZA PATENT, DRAINING CLEAR YELLOW URINE TO GRAVITY. FACE CLEANED c BABY SOAP AND BACITRACIN APPLIED. PERICARE COMPLETED, SKIN EXCORIATED. VSS. WILL CONTINUE TO MONITOR UNTIL REPORT TO ONCOMING NURSE.
--- NOTE | 2021-06-07 20:13 | NUR ---
PATIENT RESTING QUIETLY IN BED, OPENS EYES TO SLIGHT STIMULI FOLLOWING SIMPLE DIRECTIONS. TRACH MIDLINE WITH VENT SET SPONT 10/5 FIO2 30% SUCTIONING THICK CREAMY YELLOW SPUTUM. PEG TUBE IN PLACE TO LEFT UPPER ABD WITH TUBE FEEDING TWOCAL HN 2.0 AT GOAL RATE OF 40 CC/HR. ABD ROUND AND SOFT WITH HYPERACTIVE BOWEL TONES.
[2021-06-08 04:40] LABS: BASOPHILS ABSOLUTE AUTO 0.07 K/mm3 (0.00-0.23); BASOPHILS PERCENT AUTO 1 % (0-2); EOSINOPHILS ABSOLUTE AUTO 0.24 K/mm3 (0.00-0.68); EOSINOPHILS PERCENT AUTO 2 % (0-6); Hematocrit 26.6 % (37.0-53.0); Hemoglobin 7.8 g/dL (13.5-17.5); IMMATURE GRAN ABSOLUTE AUTO 0.14 K/mm3 (0.00-0.10); IMMATURE GRAN PERCENT AUTO 1 % (0-1); LYMPHOCYTES ABSOLUTE AUTO 1.28 K/mm3 (0.84-5.20); LYMPHOCYTES PERCENT AUTO 11 % (21-46); MONOCYTES ABSOLUTE AUTO 1.61 K/mm3 (0.16-1.47); MONOCYTES PERCENT AUTO 14 % (4-13); Mean Corpuscular HGB 28.6 pg (26.0-34.0); Mean Corpuscular HGB Conc 29.3 g/dL (31.5-36.5); Mean Corpuscular Volume 97 fL (80-100); Mean Platelet Volume 10.4 fL (9.1-12.4); NEUTROPHILS ABSOLUTE AUTO 8.59 K/mm3 (1.96-9.15); NEUTROPHILS PERCENT AUTO 72 % (41-73); NRBC ABSOLUTE 0.03 K/mm3 (0.00-0.02); NRBC Auto 0.3 /100 WBC (0.0-0.2); Platelet Count 723 K/mm3 (150-400); RDW Coefficient Variation 15.9 % (11.7-14.2); RDW Standard Deviation 56.9 fL (35.1-46.3); Red Blood Cell Count 2.73 M/mm3 (4.30-5.90); White Blood Cell Count 11.93 K/mm3 (4.00-11.30)
[2021-06-08 05:00] LABS: Alanine Aminotransfer (ALT/SGP 37 U/L (12-78); Albumin, Blood 2.1 g/dL (3.4-5.0); Albumin/Globulin Ratio 0.4 (0.8-1.8); Alk Phos 134 U/L (50-136); Anion Gap 2 mmol/L (6-16); Aspartate Aminotrans (AST/SGOT 19 U/L (12-37); Bilirubin, Total 0.2 mg/dL (0.1-1.0); Blood Urea Nitrogen 31 mg/dL (8-24); Bun/Creatinine Ratio 53.5 (12.0-20.0); CO2, Blood 40 mmol/L (21-32); Calcium, Blood 9.6 mg/dL (8.5-10.1); Chloride, Blood 102 mmol/L (98-108); Creatinine, Blood 0.58 mg/dL (0.60-1.20); Ferritin, Serum 163 ng/mL (26-388); Globulin, Blood 5.5 g/dL (2.2-4.0); Glomerular Filtration Rate >60 (60-); Glucose, Blood 166 mg/dL (70-99); Iron Serum 15 ug/dL (65-175); Magnesium, Blood 2.2 mg/dL (1.6-2.4); Percent Saturation 7.7 % (20.0-50.0); Phosphorus, Blood 2.3 mg/dL (2.5-4.9); Potassium, Blood 3.6 mmol/L (3.5-5.5); Sodium, Blood 144 mmol/L (136-145); Total Iron Binding Capacity 196 ug/dL (250-450); Total Protein, Blood 7.6 g/dL (6.4-8.2)
--- NOTE | 2021-06-08 05:46 | NUR ---
SUMMARY PATIENT AWAKE MOST OF THE NIGHT, MORE INTERACTIVE WITH CARE THE NIGHT PROGRESSED. MOVING RIGHT ARM MORE THAN LEFT, MOVING BOTH LEGS, SEVERE WEAKNESS TO ALL EXTREMITIES. TRACH REMAINS MIDLINE WITH FOAM DRESSING UNDER BOTTOM OF FLANGE TO PREVENT FURTHER BREAKDOWN. VENT REMAINS UNCHANGED T/O NIGHT SPONT PS 10/15 FIO2 30% SUCTIONING THICK CREAMY YELLOW SPUTUM. PEG TUBE WITH TUBE FEEDING AT GOAL RATE OF 40 CC/HR.
--- NOTE | 2021-06-08 08:55 | NUR ---
AM NOTE... ASSUMED CARE OF PT AT 0700. PT IS ITUBATED AND SEDATED, VENT SETTINGS ARE AC/PC: 20/22/5/30% WITH A 7.0 ET TUBE 25 AT THE TEETH. PT'S VS: NSR IN THE 70'S, BP 150'S-160'S SYSTOLIC, PT'S O2 SATS >95% RR IN THE 30'S PT WAS BREATHING OVER THE VENT. THIS RN NOTED A LARGE AMOUNT OF CLEAR AND WHITE CREAMY ORAL SECRETIONS ON THE PT'S SHOULDER, THIS RN WAS CLEANING THIS UP THE PT'S HR STARTED TO GO DOWN TO THE MID 50'S, BP STARTED TO INCREASE WITH SBP IN THE 170'S-180'S AND HIS O2 SATS DROPPED DOWN TO 81%, THE PT'S FIO2 WAS INCREASED TO 100% DR. NOVAK AT THE BEDSIDE DURING THIS TIME, PT'S PEEP WAS INCREASED FROM 5 TO 8, SLOWLY THE PT'S O2 SATS STARTED TO INCREASE BACK UP TO >90%. L/S SLIGHTLY COARSE ON THE RIGHT AND VERY DIM ON THE LEFT. BT VERY HYPOACTIVE, ABD HAS MILD DISTENTION. PT'S LANZA IS PATENT AND DRAINING TO GRAVITY. PT'S PUPILS ARE NON-EQUAL WITH THE LEFT AT 6MM AND THE RIGHT AT APROX 4-5, THEY ARE NON-REACTIVE, PT'S EYES SEEM LIKE THEY ARE BULDGING, PERIORBITAL EDEMA NOTED, PT'S SCELERA ARE BLOOD-SHOT AND RED. PT'S TEM IS 99.[address] NOVAK AT THE BEDSIDE CALLED DR. LOERA, PT WAS GIVEN 20MG IV HYDRALAZINE WHICH HAD A MINIMAL EFFECT ON THE PT'S BP. A STAT CHEST XRAY WAS ORDERED AND OBTAINED. DR. LOERA ARRIVED AT THE BEDSIDE TO ASSESS THE PT. PT'S BP CONTINUED TO INCREASE TO SBP IN THE 180'S-190'S. 40MG OF IV LABATALOL WAS ORDERED AND GIVEN THIS HELPED REDUCE THE PT'S BP TO THE 150'S SYSTOLIC. PT'S HR IMPROVED TO THE 70'S-80'S. A STAT HEAD CT WAS ORDERED THIS RN WENT WITH THE PT TO THE CT AND RETURNED WITH NO ISSUES. WILL CONTINUE TO MONITOR.
--- NOTE | 2021-06-08 09:45 | NUR ---
AM NOTE... ASSUMED CARE OF PT AT 0700. PT IS ON THE VENT ON SPONTAINOUS AT 10/15 AND 30% WITH O2 SATS >90%. L/S A LITTLE COARSE AND DIM T/O. PT IS IN SINUS TACH IN THE 100'S-118'S. PT HAS DEPENDENT EDEMA TO HIS BUE AND GENERALIZED EDEMA, THIS IS SLOWLY IMPROVING. PT'S BP STABLE AT THIS TIME. TRACH IS SECURED. THE PT'S LOVETT ARE IMPROVING WELL. THE DRESSING UNERNEATH THE PT'S TRACH IS CURRENTLY C/D/I. PT WAS GOTTEN UP INTO THE RECLINER CHAIR WITH THE LIFT. LANZA IS PATENT AND DRAINING TO GRAVITY. WILL CONTINUE TO MONITOR.
--- NOTE | 2021-06-08 10:35 | NUR ---
Review of pt in rounding. order recieved to discontinue precidex and propofol. Updated care manger on pt status so vibra can be reviewed. updated physical therapy on pt changing and need to reevaluate.
--- NOTE | 2021-06-08 17:49 | NUR ---
SHIFT SUMMARY... NO ACUTE NEGATIVE CHANGES NOTED THIS SHIFT. PT'S VS STABLE T/O SHIFT. PT WAS UP IN THE RECLINER CHAIR FOR MOST OF THIS SHIFT. PT'S INNER CANNULA AND VENT CIRCUT WERE CHANGED OUT BY RT THIS SHIFT. PT HAD A SMALL SMEAR OF BROWN/GREEN STOOL THIS SHIFT. PT'S LANZA IS PATENT AND DRAINING TO GRAVITY. PT CONTINUES TO HAVE MODERATE AMOUNT OF THICK YELLOW SPUTUM FROM THE TRACH. CALL LIGHT IN REACH WILL CONTINUE TO MONITOR UNTIL REPORT IS GIVEN TO ONCOMING RN.
--- NOTE | 2021-06-08 19:35 | NUR ---
ASSUMED CARE REPORT RECEIVED FROM LEVON RN. PT AWAKE IN BED, FOLLOWING SOME COMMANDS. PT ON VENT VIA TRACH, SPONT 10/15 30% SPO2 96%. PT SINUS TACH 115'S, SBP 160'S. COPIOUS THICK CORRIGAN SECRETIONS NEEDING TO BE SUCTIONED ORALLY AND THROUGH TRACH. LANZA DRAINING TO GRAVITY. CURRENTLY SALING LOCKED. TF RUNNING TWOCAL HN AT GOAL RATE OF 40 ML/HR WITH 30 Q4H WATER FLUSHES.
[2021-06-09 03:46] LABS: BASOPHILS ABSOLUTE AUTO 0.08 K/mm3 (0.00-0.23); BASOPHILS PERCENT AUTO 1 % (0-2); EOSINOPHILS ABSOLUTE AUTO 0.21 K/mm3 (0.00-0.68); EOSINOPHILS PERCENT AUTO 2 % (0-6); Hematocrit 25.4 % (37.0-53.0); Hemoglobin 7.6 g/dL (13.5-17.5); IMMATURE GRAN ABSOLUTE AUTO 0.21 K/mm3 (0.00-0.10); IMMATURE GRAN PERCENT AUTO 2 % (0-1); LYMPHOCYTES ABSOLUTE AUTO 1.11 K/mm3 (0.84-5.20); LYMPHOCYTES PERCENT AUTO 8 % (21-46); MONOCYTES ABSOLUTE AUTO 1.67 K/mm3 (0.16-1.47); MONOCYTES PERCENT AUTO 13 % (4-13); Mean Corpuscular HGB 28.7 pg (26.0-34.0); Mean Corpuscular HGB Conc 29.9 g/dL (31.5-36.5); Mean Corpuscular Volume 96 fL (80-100); Mean Platelet Volume 9.8 fL (9.1-12.4); NEUTROPHILS PERCENT AUTO 75 % (41-73); NRBC ABSOLUTE 0.04 K/mm3 (0.00-0.02); NRBC Auto 0.3 /100 WBC (0.0-0.2); Platelet Count 703 K/mm3 (150-400); RDW Coefficient Variation 15.9 % (11.7-14.2); RDW Standard Deviation 56.5 fL (35.1-46.3); Red Blood Cell Count 2.65 M/mm3 (4.30-5.90); White Blood Cell Count 13.18 K/mm3 (4.00-11.30)
[2021-06-09 04:01] LABS: Anion Gap 1 mmol/L (6-16); Blood Urea Nitrogen 33 mg/dL (8-24); Bun/Creatinine Ratio 56.2 (12.0-20.0); CO2, Blood 39 mmol/L (21-32); Calcium, Blood 9.2 mg/dL (8.5-10.1); Chloride, Blood 102 mmol/L (98-108); Creatinine, Blood 0.59 mg/dL (0.60-1.20); Glomerular Filtration Rate >60 (60-); Glucose, Blood 197 mg/dL (70-99); Magnesium, Blood 2.1 mg/dL (1.6-2.4); Phosphorus, Blood 2.7 mg/dL (2.5-4.9); Potassium, Blood 3.7 mmol/L (3.5-5.5); Sodium, Blood 142 mmol/L (136-145)
--- NOTE | 2021-06-09 05:58 | NUR ---
SHIFT SUMMARY PT REMAINS ON VENT VIA TRACH, VENT SETTINGS SPONT 09/02 30%. VSS T/O SHIFT. COPIOUS AMOUNTS OF THICK YELLOW SECRETIONS SUCTIONED FROM TRACH. PT OPENS MOUTH FOR ORAL CARE. WOUND CARE PERFORMED TO FACE, BABY SOAP AND WATER TO CLEANSE AND BACITRACIN APPLIED. TRACH CARE DONE, PADDED DRESSING PLACED UNDER TRACH APPLIANCE TO PREVENT FURTHER SKIN BREAKDOWN. PT AWAKENS TO STIMULI, FOLLOWS SOME SIMPLE COMMANDS. LANZA DRAINING CLEAR YELLOW URINE TO GRAVITY. WILL CONTINUE TO MONITOR UNTIL REPORT GIVEN TO ONCOMING RN.
--- NOTE | 2021-06-09 07:15 | NUR ---
Assumed care of pt at 0700. Bedside report received from Sarina WICK. Pt is alert. Unable to vocalize due to trach and ventilator. Does not nod head yes/no at this time, so unclear if pt is oriented. Not following commands at this time, but subtle spontaneous movement is noted to bilat upper and lower extremities. Pt tracks this RN's movement across room. Pt has 8.0 cm trach. Ventilator settings spontaneous mode with PS 10/15 and 30% FiO2. SpO2 90% or greater. RR 29. Tidal volumes 350-450 mL. Large amount of thick, tenacious sputum suctioned from trach. Tom/pink color. Pt is ST per monitor, rate 110-115. BP high. PEG tube with feeds per orders. Alvarez catheter draining clear yellow urine.
--- NOTE | 2021-06-09 16:10 | NUR ---
review of vibra with family pt has been excepted and will transfer today. The pt daughter is known to this policy writer typist from helping her with a previous family member. Gave her our number and encouraged follow up with our department for decisonal support.
[2021-06-09] MEDS ORDERED: Acetaminophen650 M1 PT (16:18)
[2021-06-09] MEDS ORDERED: ALBU2.5V5 INH (16:19)
[2021-06-09] MEDS ORDERED: JUVEN PACKET1 EAC3 PT (16:21)
[2021-06-09] MEDS ORDERED: BISA10S PR (16:30)
[2021-06-09] MEDS ORDERED: BACITRACIN ZIN1 EAC1 TOP (16:30)
[2021-06-09] MEDS ORDERED: BUDESONIDE1 MG/2 M1 INH (16:32)
[2021-06-09] MEDS ORDERED: PAROEX473 ML MM (16:34)
[2021-06-09] MEDS ORDERED: DOCU LIQUI50 MG/5 ML PT (16:36)
[2021-06-09] MEDS ORDERED: FOLI1 PT (16:37)
[2021-06-09] MEDS ORDERED: FENTANYL1 EA10 TOP (16:37)
[2021-06-09] MEDS ORDERED: HUMULIN R100 UNIT/2 SC (16:39)
[2021-06-09] MEDS ORDERED: METO25 PT (16:49)
[2021-06-09] MEDS ORDERED: IPRAT-ALBUT 0.5-3 ML INH (16:49)
[2021-06-09] MEDS ORDERED: NYSTATIN15 GM TOP (16:50)
[2021-06-09] MEDS ORDERED: MICO100S TOP (16:50)
[2021-06-09] MEDS ORDERED: OCUFLOX LEFTEAR (16:51)
[2021-06-09] MEDS ORDERED: SENN187 PT (16:52)
[2021-06-09] MEDS ORDERED: B-1100 M1 PT (16:52)
[2021-06-09] MEDS ORDERED: TOBRAMYCIN300 MG/52 INH (16:53)
[2021-06-09] MEDS ORDERED: VISBIOME 112.51 EACH PT (16:54)
[2021-06-09] MEDS ORDERED: LOPRESSOR5 MG/5 M1 IV (16:56)
--- NOTE | 2021-06-09 17:48 | NUR ---
Pt discharged from ICU to [facility], accompanied by ambulance. Placed on transport ventilator with assist from RT. Report called to Garo RN at [facility], stated that kenney catheter can remain as facility will also be measuring strict I&O. Stated that PICC line may remain in place, if pt has IV medications ordered. Discussed that IV metoprolol has been given. Powerglide removed. Patient given xanax PT for anxiety prior to departure. Daughter, Amy, at bedside during transfer process. Amy was notified of transfer as soon as this RN was made aware, around 1515, with plans for transport to arrive at 1545. Amy stated she was uncomfortable with how abruptly pt was being transferred out. She verbalizes understanding that [facility] is ultimately the best choice for patient but states she felt "bullied" into making a hasty decision as soon as a bed became available and states belief that the pressure to make a decision was for institutional financial gain and references a discussion she had with a neonatal intensive care unit nurse earlier today. This RN discussed that discharge planning for [facility] began when pt received tracheostomy as that is the only facility that can assist this patient when he is medically stable. Also discussed that generally, facilities state-wide have been maximally filled and reinforced that utilizing this window of opportunity, an open bed at [facility], was the right choice. This RN encouraged her to call any family members as she mentioned "I haven't had a chance to call my brothers" and allowed three other visitors to see patient before he departed. Amy remained agreeable with plan of care, but still uncomfortable with speed of process. Provided with pt advocate phone number.
== END 2021-06-09 16:30 | DRG 4 ==
LOC: ER 15:09 → PCU 17:37 → ICUE 17:37
PROVIDERS: Emergency Medicine; Internal Medicine; Internal Medicine Critical Care Medicine; Internal Medicine Pulmonary Disease; Student in an Organized Health Care Education/Training Program; Surgery; ADMIT Internal Medicine
PROC: 5A1955Z Respiratory Ventilation, Greater than 96 Consecutive Hours (ICD-10-PCS; 2021-05-10)
PROC: 0BH17EZ Insertion of Endotracheal Airway into Trachea, Via Natural or Artificial Opening (ICD-10-PCS; 2021-05-10)
PROC: 0DH63UZ Insertion of Feeding Device into Stomach, Percutaneous Approach (ICD-10-PCS; 2021-05-24)
PROC: 3E0G76Z Introduction of Nutritional Substance into Upper GI, Via Natural or Artificial Opening (ICD-10-PCS; 2021-05-24)
PROC: 0DJ08ZZ Inspection of Upper Intestinal Tract, Via Natural or Artificial Opening Endoscopic (ICD-10-PCS; 2021-05-24)
PROC: 0B113F4 Bypass Trachea to Cutaneous with Tracheostomy Device, Percutaneous Approach (ICD-10-PCS; principal; 2021-05-24 09:15)
DX: J96.21 Acute and chronic respiratory failure with hypoxia (principal); G92 Toxic encephalopathy; J44.1 Chronic obstructive pulmonary disease with (acute) exacerbation; I48.92 Unspecified atrial flutter; T20.29XA Burn of second degree of multiple sites of head, face, and neck, initial encounter; Z20.822 Contact with and (suspected) exposure to COVID-19; E87.5 Hyperkalemia; S00.412A Abrasion of left ear, initial encounter; T79.6XXA Traumatic ischemia of muscle, initial encounter; I48.91 Unspecified atrial fibrillation; T38.0X5A Adverse effect of glucocorticoids and synthetic analogues, initial encounter; E11.65 Type 2 diabetes mellitus with hyperglycemia; E87.6 Hypokalemia; D63.8 Anemia in other chronic diseases classified elsewhere; E83.39 Other disorders of phosphorus metabolism; D69.6 Thrombocytopenia, unspecified; D72.829 Elevated white blood cell count, unspecified; R77.8 Other specified abnormalities of plasma proteins; I10 Essential (primary) hypertension; F41.9 Anxiety disorder, unspecified; F32.9 Major depressive disorder, single episode, unspecified; F17.210 Nicotine dependence, cigarettes, uncomplicated; Z79.899 Other long term (current) drug therapy; Z99.81 Dependence on supplemental oxygen; Z79.52 Long term (current) use of systemic steroids; X08.8XXA Exposure to other specified smoke, fire and flames, initial encounter
CPT/HCPCS: 31500; 31502; 31720; 36415; 36569; 36600; 51702; 71045; 80048; 80053; 80069; 81001; 82330; 82550; 82553; 82607; 82728; 82746; 82803; 82947; 83036; 83540; 83550; 83690; 83735; 83880; 84100; 84132; 84484; 85014; 85018; 85025; 85027; 85610; 87040; 87070; 87077; 87147; 87186; 87205; 93005; 93010; 93306; 93308; 93321; 94002; 94003; 94640; 94644; 94660; 94760; 96374; 96375; 97110; 97112; 97162; 97165; 99285-25; A9270; C1751; C1769; C9113; J0461; J0690; J0696; J1100; J1170; J1650; J1815; J1940; J2060; J2250; J2270; J2370; J2543; J2704; J2765; J2920; J2930; J3010; J3480; J7030; J7040; J7050; J7060; J7070; J7120; J7626; U0004